=== PATIENT | female | born 1940 | race Caucasian/White ===

== ENCOUNTER 2018-08-12 09:21 | Inpatient (IN) | payer OTHER, MEDICARE ==
[2018-08-12] MEDS ORDERED: IPRATROPIUM/ALBUTEROL 3 ML DEYVIAL ONE (09:37)
[2018-08-12] MEDS ORDERED: IPRATROPIUM/ALBUTEROL 3 ML DEYVIAL IH ONE ×2 (09:48→09:49)
[2018-08-12] MEDS ORDERED: NS 500 ML IV ONE (09:49)
[2018-08-12] MEDS ORDERED: methylPREDNISolone SOD SUCC 125 MG/2 ML VIAL IVP ONE (09:49)
--- NOTE | 2018-08-12 10:00 | EDPHY ---
H & P Time Seen by Provider: 08/12/18 09:28 HPI/ROS: HPI Cough, shortness of breath. 77-year-old female by private vehicle. This patient has a history of reactive airway disease and COPD. She reports that she is visiting from [place]. She came here last Sunday by plane. She reports that a couple of days after her flight she developed a worsening cough with shortness of breath. She reports that she use prednisone and Advair as well as albuterol yesterday with some relief. She reports that her shortness of breath and cough have been worse today. She describes the cough is productive of a greenish sputum. She did not take any Advair or prednisone today. She has used albuterol multiple times with little relief. She feels she has had a fever yesterday but not today. ROS: Constitutional: As above. No weakness. Eyes: No discharge. No changes in vision. ENT: No sore throat. No nasal congestion or rhinorrhea. Respiratory: As above. Cardiac: No chest pain, no palpitations. Gastrointestinal: No abdominal pain, no vomiting, no diarrhea. Genitourinary: No hematuria. No dysuria or increased frequency with urination. Musculoskeletal: No back pain. No neck pain. No myalgias or arthralgias. Skin: No rashes. Neurological: No headache. No focal weakness or altered sensation. Past medical history: Hypertension, asthma, COPD, hyperthyroid, lung cancer. Social history: She is here by herself. She has a son who lives in [place] and she is visiting currently. She is from [place]. She is a former smoker. No alcohol. Physical Exam: General Appearance: Alert, , mildly anxious, she is not in distress. This patient is responding to questions appropriately and in full sentences. This patient appears well-hydrated and well-nourished. Eyes: Pupils equal and round no pallor or injection. No lid edema, erythema or injection. ENT, Mouth: Mucous membranes are moist. The pharyngeal tissues are unremarkable. No edema or swelling. No asymmetry suggestive of abscess. No erythema or exudates. Respiratory: There are no retractions, diminished lung sounds bilaterally with scant wheezing in the upper de oliveira on exhalation. Tachypnea at 22. Cardiovascular: Regular rate and rhythm. Tachycardia. No murmur appreciated. Gastrointestinal: Abdomen is soft and nontender, no masses, bowel sounds normal. No focal tenderness at McBurney's point. No Mcgrath sign. Neurological: Motor sensory function is grossly intact. Cranial nerves are normal. Gait is normal. Skin: Warm and dry, no rashes. Musculoskeletal: Neck is supple and nontender. Extremities are symmetrical. No significant lower extremity edema. All joints range without pain or impingement. Psychiatric: No agitation. No depression. Database: EKG: EKG time is 9:41 a.m.; EKG shows a narrow complex normal sinus tachycardia with a ventricular rate of 138. QS waves noted in the precordial leads. PVC noted. The NC, QRS, QT intervals are within normal limits. There are no ST-T wave changes indicative of ischemic or injury pattern. No evidence of right heart strain. Interpreted by me. Imaging: Chest x-ray PA and lateral; the cardiac mediastinal silhouette is unremarkable. There is a large infiltrative process, likely lower right upper lobe. Annalise hilar infiltrative process is also noted on the left side with a small left- sided pleural effusion. No pneumothorax. No other acute cardiopulmonary disease process noted. Interpreted by me. Procedures: Emergency department course: Triage vital signs reviewed. She is tachycardic. Blood pressure 94/74 from triage. On my evaluation she is 106/67. IV was placed. She was placed on a banner painter. She was started on IV normal saline with 500 cc to be given over the next 30 min. EKG obtained and reviewed by myself. Blood cultures and respiratory pathogen panel to be obtained. Sepsis protocol initiated. Her presentation is consistent with a COPD exacerbation with bronchitis and possible pneumonia. She will be given albuterol/Atrovent nebulizers as well as 125 mg of IV Solu-Medrol. 10:10 a.m., initial point of care venous lactate is 3.3. Severe sepsis protocol initiated with 30 mL/kg lactated Ringer's bolus to be started shortly. The patient will also be started on broad-spectrum antibiotics which will include IV ceftriaxone and IV azithromycin. I explained to the patient that she will need to be admitted to the hospital. All of her questions were answered. 10:30 a.m., the patient was re-evaluated, resting comfortably at this time. Blood pressure currently 108/68. Results of her chest x-ray and diagnosis of pneumonia discussed. She is receiving IV ceftriaxone now and has been started on her IV fluid bolus. Plan for admission discussed with her. 10:35 a.m., spoke with on-call hospitalist. We will admit this patient to the step-down unit under the care of Dr. Alia Shannon. The patient was just started on her lactated Ringer's bolus and will be transferred shortly. Repeat venous lactate has been ordered at [facility]. This will be obtained when she is through with her IV fluid bolus. It will then be determined if she meets criteria for septic shock and will require a central line and pressors. I feel the patient is stable for transfer at this time and will be much better served once at the main hospital. At this time she is responding well to IV fluids and the therapies we have initiated here. I filled out the appropriate transfer paperwork. I have also discussed the elevated D-dimer with the hospitalist service. At this time we will hold on obtaining a CT angiogram. Pulmonary embolism is unlikely given her chest x-ray findings and obvious pneumonia. CT angiogram will be considered after admission and IV fluid hydration. Her creatinine here is elevated at 1.2. 11:20 a.m., blood pressure is 112/59 with a mean arterial pressure of 84. stock plan administrator shows a narrow complex sinus tachycardia rate of 120. Patient is responding well to IV fluids. IV ceftriaxone and IV azithromycin have been given. EMS at bedside. The patient was transferred to [facility] in stable and improved condition. Differential Diagnosis: The differential diagnosis on this patient includes but is not limited to COPD exacerbation, pneumonia, sepsis, acute bronchitis. This represents a partial list of diagnoses considered. These considerations are based on history, physical exam, past history, reassessment and diagnostic testing. Smoking Status: Former smoker Constitutional: Initial Vital Signs O2 Sat (%) 97 08/12/18 09:30 O2 Delivery Mode Nasal Cannula O2 (L/minute) 3 Allergies/Adverse Reactions: No Known Allergies Allergy (Verified 08/12/18 09:29) Home Medications: Medication Instructions Recorded Advair 250/50 (RX) 12/27/14 Albuterol 12/27/14 Lisinopril 12/27/14 Levothyroxine [Synthroid 50 mcg 08/12/18 (*)] predniSONE [Prednisone] PRN 08/12/18 Medical Decision Making - Diagnostics Imaging Results: Imaging Impressions Chest X-Ray 08/12/18 09:50 Impression: 1. Bilateral consolidation/pneumonia with mild left effusion. - Data Points Laboratory Results: Laboratory Results 08/12/18 09:45 08/12/18 08/12/18 08/12/18 10:05 09:56 09:54 WBC RBC Hgb Hct MCV MCH MCHC RDW Plt Count MPV Neut % (Auto) Lymph % (Auto) [place] % (Auto) Eos % (Auto) Baso % (Auto) Nucleat RBC Rel Count Absolute Neuts (auto) Absolute Lymphs (auto) Absolute Monos (auto) Absolute Eos (auto) Absolute Basos (auto) Absolute Nucleated RBC Immature Gran % Immature Gran # Platelet Estimate PT INR APTT VBG Lactic Acid POC Sodium 133 mEq/L L mEq/L (135-145) POC Potassium 3.3 mEq/L mEq/L (3.3-5.0) POC Chloride 91.0 mEq/L L mEq/L (97-110) POC Total CO2 24 mEq/L mEq/L (22-31) POC BUN 25 mg/dL H mg/dL (7-23) POC Creatinine 1.2 mg/dL H mg/dL (0.6-1.0) POC Glucose 97 mg/dL mg/dL (70-100) POC Lactic Acid Carlton 3.3 mmol/L H mmol/L (0.7-2.1) POC Calcium 9.5 mg/dL mg/dL (8.5-10.4) Total Bilirubin POC Troponin I 0.02 ng/mL ng/mL (0.00-0.08) NT-Pro-B Natriuret Pep 08/12/18 08/12/18 08/12/18 09:45 09:45 09:45 WBC 11.00 10^3/uL H 10^3/uL (3.80-9.50) RBC 4.25 10^6/uL 10^6/uL (4.18-5.33) Hgb 13.3 g/dL g/dL (12.6-16.3) Hct 38.6 % % (38.0-47.0) MCV 90.8 fL fL (81.5-99.8) MCH 31.3 pg pg (27.9-34.1) MCHC 34.5 g/dL g/dL (32.4-36.7) RDW 13.5 % % (11.5-15.2) Plt Count 319 10^3/uL 10^3/uL (150-400) MPV 9.8 fL fL (8.7-11.7) Neut % (Auto) Pending Lymph % (Auto) Pending [place] % (Auto) Pending Eos % (Auto) Pending Baso % (Auto) Pending Nucleat RBC Rel Count Pending Absolute Neuts (auto) Pending Absolute Lymphs (auto) Pending Absolute Monos (auto) Pending Absolute Eos (auto) Pending Absolute Basos (auto) Pending Absolute Nucleated RBC Pending Immature Gran % Pending Immature Gran # Pending Platelet Estimate Pending PT INR APTT VBG Lactic Acid REJ POC Sodium POC Potassium POC Chloride POC Total CO2 POC BUN POC Creatinine POC Glucose POC Lactic Acid Carlton POC Calcium Total Bilirubin 0.8 mg/dL mg/dL (0.1-1.4) POC Troponin I NT-Pro-B Natriuret Pep 730 pg/mL H pg/mL (0-450) 08/12/18 09:45 WBC RBC Hgb Hct MCV MCH MCHC RDW Plt Count MPV Neut % (Auto) Lymph % (Auto) [place] % (Auto) Eos % (Auto) Baso % (Auto) Nucleat RBC Rel Count Absolute Neuts (auto) Absolute Lymphs (auto) Absolute Monos (auto) Absolute Eos (auto) Absolute Basos (auto) Absolute Nucleated RBC Immature Gran % Immature Gran # Platelet Estimate PT 18.1 SEC H SEC (12.0-15.0) INR 1.48 H (0.83-1.16) APTT 34.4 SEC SEC (23.0-38.0) VBG Lactic Acid POC Sodium POC Potassium POC Chloride POC Total CO2 POC BUN POC Creatinine POC Glucose POC Lactic Acid Carlton POC Calcium Total Bilirubin POC Troponin I NT-Pro-B Natriuret Pep Medications Given: Discontinued Medications Albuterol/Ipratropium (Duoneb) 3 ml IH EDNOW ONE Stop: 08/12/18 09:49 Last Admin: 08/12/18 09:55 Dose: 3 ml Albuterol/Ipratropium (Duoneb) 6 ml IH EDNOW ONE Stop: 08/12/18 09:50 Last Admin: 08/12/18 12:27 Dose: Not Given Sodium Chloride (Ns) 500 mls @ 1,000 mls/hr IV EDNOW ONE PRN Reason: Protocol Stop: 08/12/18 10:18 Last Admin: 08/12/18 10:02 Dose: 500 mls Azithromycin 500 mg/ Sodium (Chloride) 255 mls @ 255 mls/hr IV EDNOW ONE PRN Reason: Protocol Stop: 08/12/18 11:07 Last Admin: 08/12/18 10:52 Dose: 255 mls Ceftriaxone Sodium/Dextrose (Rocephin 1 Gm (Premix)) 50 mls @ 100 mls/hr IV EDNOW ONE PRN Reason: Protocol Stop: 08/12/18 10:35 Last Admin: 08/12/18 10:22 Dose: 50 mls Lactated Ringer's (Lr) 1,900 mls @ 3,800 mls/hr 30 ml/kg infuse over 30 min ( 1900 ml) IV EDNOW ONE PRN Reason: Protocol Stop: 08/12/18 10:35 Last Admin: 08/12/18 10:32 Dose: 1,900 mls Ceftriaxone Sodium 2 gm/ (Sodium Chloride) 100 mls @ 200 mls/hr IV EDNOW ONE PRN Reason: Protocol Stop: 08/12/18 10:53 Last Admin: 08/12/18 12:27 Dose: Not Given Ceftriaxone Sodium/Dextrose (Rocephin 1 Gm (Premix)) 50 mls @ 100 mls/hr IV EDNOW ONE PRN Reason: Protocol Stop: 08/12/18 11:03 Last Admin: 08/12/18 10:42 Dose: 50 mls Methylprednisolone Sodium Succinate (Solu-Medrol) 125 mg IVP EDNOW ONE Stop: 08/12/18 09:50 Last Admin: 08/12/18 10:03 Dose: 125 mg Point of Care Test Results: CBC CBC Collection Date 08/12/18 CBC Collection Time 09:45 WBC 10.8 RBC 4.39 HGB 14.1 HCT 39.8 PLT 320 Neut # 10.3 Neut 95.5 LYMPH # 0.4 LYMPH 3.6 Other WBC # 0.1 Other WBC 0.9 MCV 90.7 Chemistry 08/12/18 08/12/18 09:56 09:54 POC Sodium 133 mEq/L L mEq/L (135-145) POC Potassium 3.3 mEq/L mEq/L (3.3-5.0) POC Chloride 91.0 mEq/L L mEq/L (97-110) POC Total CO2 24 mEq/L mEq/L (22-31) POC BUN 25 mg/dL H mg/dL (7-23) POC Creatinine 1.2 mg/dL H mg/dL (0.6-1.0) POC Glucose 97 mg/dL mg/dL (70-100) POC Calcium 9.5 mg/dL mg/dL (8.5-10.4) POC Troponin I 0.02 ng/mL ng/mL (0.00-0.08) Blood Gas/Lactic Acid-Venous 08/12/18 10:05 POC Lactic Acid Carlton 3.3 mmol/L H mmol/L (0.7-2.1) D-Dimer D-Dimer Collection Date 08/12/18 D-Dimer Collection Time 09:45 D-Dimer (ng/ml) 2610 Departure - Departure Disposition: [facility] Inpatient Acute Clinical Impression: COPD exacerbation, Pneumonia, Sepsis, Renal insufficiency
[2018-08-12] MEDS ORDERED: LACTATED RINGERS IV ONE (10:06)
[2018-08-12] MEDS ORDERED: AZITHROMYCIN IV 500 MG in NS 250 ML IV ONE (10:08)
[2018-08-12] MEDS ORDERED: IOPAMIDOL (ISOVUE 370) 100 ML BTL IV ONE (10:22)
[2018-08-12] MEDS ORDERED: ACETAMINOPHEN 325 MG TAB PO PRN (10:44)
[2018-08-12] MEDS ORDERED: ONDANSETRON 4 MG/2 ML VIAL IVP PRN (10:44)
[2018-08-12] MEDS ORDERED: ONDANSETRON DISINTEGRATING 4 MG TAB PO PRN (10:44)
[2018-08-12 11:20] LABS: INR 1.48 (0.83-1.16); PROTIME(PATIENT) 18.1 SEC (12.0-15.0)
[2018-08-12 12:52] LABS: PLATELET COUNT 319 10^3/uL (150-400)
--- NOTE | 2018-08-12 13:32 | GCON ---
CRITICAL CARE NURSE PRACTITIONER CONSULTATION REFERRING PHYSICIAN: Alia Shannon MD REASON FOR ADMISSION: Pneumonia. HISTORY OF PRESENT ILLNESS: I was called by Dr. Alia Shannon to see the patient regarding pneumonia . The patient is a 77-year-old white female with a past medical history of chronic obstructive pulmo nary disease, hyperthyroidism, asthma, hypertension, and lung cancer. Her lung cancer was diagnosed 2 years ago and has been under treatment with radiation therapy and chemotherapy and has been followe d by an oncologist in [place]. In discussion with the patient, she states that over the last several days, she has noticed increasing shortness of breath, as well as a cough. Cough was initially produ ctive of yellowish sputum and is now green and is also somewhat blood-tinged. She denies any chest p ain, pleuritic-type chest pain or angina equivalent. She has worsening breathlessness, especially wi th any form of exertion. She denies any fever. She was seen in the emergency room and was subsequen tly admitted to the hospital. Currently, she feels markedly improved. PAST MEDICAL HISTORY: Again significant for hypertension, chronic obstructive pulmonary disease, hyp erthyroidism, and lung cancer. ALLERGIES: No known allergies to medications. SOCIAL HISTORY: Previous heavy smoker, none for approximately 6 years. She drinks a significant lena unt of alcohol. Work history: She is retired. She is , with children. She has a son here in [place], and she is currently visiting from [place]. FAMILY HISTORY: Noncontributory. REVIEW OF SYSTEMS: Ten-point review of systems is performed and negative, except for what is listed in HPI. PHYSICAL EXAM: VITAL SIGNS: Blood pressure is 122/64. Pulse is 122, respirations 26, temperature 3 6.6, oxygen saturation 95% on 2 L. GENERAL: She is a well-developed, well-nourished, elderly white female who is resting comfortably on supplemental oxygen. HEENT: Eyes, MIKAYLA, EOMI. Throat shows no erythema or tonsillar hypertrophy. NECK: Supple. No cervical adenopathy. HEART: Regular rate and rhythm, without murmurs, rubs, or gallops. LUNGS: Increased rhonchi on the right. Left lung shows a prolongation expiratory phase but no wheeze. ABDOMEN: Soft and nontender. Bowel sounds are pres ent in all 4 quadrants. EXTREMITIES: No clubbing, cyanosis, or edema. LABORATORIES: White count is 11, hemoglobin 13, hematocrit 38, platelet count 319. INR is 1.48. So dium is 133, potassium 3.3. Chloride is 91. CO2 is 24. BUN 25, creatinine 1.2. Glucose is 97. Ches t x-ray reveals mild hyperinflated lungs. There is a dense right upper lobe consolidation. There is increased density in the left hilar region, with some probable postradiation changes. IMPRESSION: 1. Community-acquired pneumonia. 2. Sepsis. 3. Tachycardia. 4. Chronic obstructive pulmonary disease. 5. Left-sided lung cancer. 6. Hypertension. 7. Hyperthyroidism. RECOMMENDATIONS: 1. Agree with admission to step-down unit. 2. DVT and PE prophylaxis. 3. Stress ulcer prophylaxis. 4. Agree with current antibiotic coverage, including azithromycin and ceftriaxone. 5. Frequent nebulization with both albuterol and Atrovent. 6. Agree with IV steroids. 7. PT and OT. 8. Out of bed to chair. 9. Await sputum and blood cultures. /[id number]/MODL
[2018-08-12] MEDS: IPRATROPIUM/ALBUTEROL 3 ML DEYVIAL IH SCH ×4 (14:03→20:14)
[2018-08-12] MEDS ORDERED: NICOTINE POLACRILEX 2 MG GUM B PRN (14:32)
--- NOTE | 2018-08-12 14:37 | PDGENHP ---
History and Physical - Chief Complaint cough, SOB - History of Present Illness 77 yo female with h/o tobacco abuse and lung cancer s/p laser therapy and chemo presented to [facility] ED with cough and SOB x3 days. She reports increased cough and sputum production, green. +fever to 100. Denies CP. She reports a h/o asthma or COPD, uses albuterol nebs at home. She has a Rx for oral Prednisone to use prn and she took 40 mg on Sunday. She thought her symptoms cleared up, but then they worsened and she presented to the ED. In the ED, she met criteria for sepsis with tachycardia, elevated lactate and pneumonia evident on CXR. Blood cultures were drawn. She was given IV solumedrol, Ceftriaxone, Azithromycin and is admitted for further management. History Information - Allergies/Home Medication List Allergies/Adverse Reactions: No Known Allergies Allergy (Verified 08/12/18 09:29) Home Medications: Albuterol [Proventil Inhaler HFA (*)] 1 - 2 puffs IH Q4H PRN 12/27/14 [Last Taken 08/12/18] Fluticasone/Salmeter 250/50Mcg [Advair 250/50 (*)] 1 puffs IH DAILY 12/27/14 [ Last Taken 3 Days Ago ~08/09/18] Lisinopril [Zestril 20 mg (*)] 20 mg PO DAILY 12/27/14 [Last Taken 3 Days Ago ~ 08/09/18] Albuterol [Proventil Neb] 3 ml IH QID PRN 08/12/18 [Last Taken Unknown] Ascorbic Acid [Vitamin C 500 mg (*)] 500 mg PO DAILY 08/12/18 [Last Taken Unknown] Cyanocobalamin [Vitamin B12 (*)] 1,000 mcg PO DAILY 08/12/18 [Last Taken Unknown ] Herbals/Supplements -Info Only 1 ea PO DAILY 08/12/18 [Last Taken Unknown] Levothyroxine [Synthroid 50 mcg (*)] 50 mcg PO DAILY06 08/12/18 [Last Taken ] Nicotine Polacrilex [Nicorette gum (*)] 2 mg BC PRN PRN 08/12/18 [Last Taken ] Vitamin B Complex [Vitamin B Complex (OTC)] 1 each PO DAILY 08/12/18 [Last Taken Unknown] predniSONE 20 mg PO DAILY PRN 08/12/18 [Last Taken 08/11/18] I have personally reviewed and updated: family history, medical history, social history, surgical history - Past Medical History cancer, COPD Additional medical history: hypothyroidism. lung cancer - Surgical History Additional surgical history: laser surgery on lungs for lung cancer - Family History Positive for: cancer Additional family history: dad from pancreatic cancer. sister with breast cancer. brother prostate cancer - Social History Smoking Status: Former smoker Alcohol Use: Occasionally Drug Use: None Additional social history: Lives alone, independent Review of Systems Review of Systems: ROS: 10pt was reviewed & negative except for what was stated in HPI & below Physical Exam Physical Exam: Temp Pulse Resp BP Pulse Ox 36.6 C 118 H 19 112/67 96 08/12/18 13:05 08/12/18 13:25 08/12/18 13:25 08/12/18 13:25 08/12/18 13:25 O2 (L/minute) 2 Constitutional: no apparent distress Eyes: PERRL Ears, Nose, Mouth, Throat: moist mucous membranes Cardiovascular: regular rate and rhythym Respiratory: no respiratory distress, reduced air movement, expiratory wheeze, inspiratory crackles Gastrointestinal: normoactive bowel sounds, soft, non-tender abdomen Skin: warm Musculoskeletal: full muscle strength Neurologic: AAOx3 Psychiatric: interacting appropriately Lab Data & Imaging Review 08/12/18 09:45 WBC 11.00 10^3/uL (3.80-9.50) H 08/12/18 09:45 RBC 4.25 10^6/uL (4.18-5.33) 08/12/18 09:45 Hgb 13.3 g/dL (12.6-16.3) 08/12/18 09:45 Hct 38.6 % (38.0-47.0) 08/12/18 09:45 MCV 90.8 fL (81.5-99.8) 08/12/18 09:45 MCH 31.3 pg (27.9-34.1) 08/12/18 09:45 MCHC 34.5 g/dL (32.4-36.7) 08/12/18 09:45 RDW 13.5 % (11.5-15.2) 08/12/18 09:45 Plt Count 319 10^3/uL (150-400) 08/12/18 09:45 MPV 9.8 fL (8.7-11.7) 08/12/18 09:45 Neut % (Auto) 94.6 % (39.3-74.2) H 08/12/18 09:45 Lymph % (Auto) 3.5 % (15.0-45.0) L 08/12/18 09:45 Bates % (Auto) 1.7 % (4.5-13.0) L 08/12/18 09:45 Eos % (Auto) 0.0 % (0.6-7.6) L 08/12/18 09:45 Baso % (Auto) 0.1 % (0.3-1.7) L 08/12/18 09:45 Nucleat RBC Rel Count 0.0 % (0.0-0.2) 08/12/18 09:45 Absolute Neuts (auto) 10.40 10^3/uL (1.70-6.50) H 08/12/18 09:45 Absolute Lymphs (auto) 0.39 10^3/uL (1.00-3.00) L 08/12/18 09:45 Absolute Monos (auto) 0.19 10^3/uL (0.30-0.80) L 08/12/18 09:45 Absolute Eos (auto) 0.00 10^3/uL (0.03-0.40) L 08/12/18 09:45 Absolute Basos (auto) 0.01 10^3/uL (0.02-0.10) L 08/12/18 09:45 Absolute Nucleated RBC 0.00 10^3/uL (0-0.01) 08/12/18 09:45 Immature Gran % 0.1 % (0.0-1.1) 08/12/18 09:45 Seg Neutrophils % 76.8 % 08/12/18 09:45 Band Neutrophils % 3.0 % 08/12/18 09:45 Lymphocytes % 8.1 % 08/12/18 09:45 Monocytes % 8.1 % 08/12/18 09:45 Eosinophils % 0.0 % 08/12/18 09:45 Basophils % 0.0 % 08/12/18 09:45 Metamyelocytes % 2.0 % 08/12/18 09:45 Myelocytes % 2.0 % 08/12/18 09:45 Promyelocytes % 0.0 % 08/12/18 09:45 Blast Cells % 0.0 % 08/12/18 09:45 Immature Gran # 0.01 10^3/uL (0.00-0.10) 08/12/18 09:45 Absolute Seg Neuts 8.45 10^3/uL (1.70-6.50) H 08/12/18 09:45 Absolute Band Neuts 0.33 10^3/uL (0.00-0.70) 08/12/18 09:45 Absolute Lymphocytes 0.89 10^3/uL (1.00-3.00) L 08/12/18 09:45 Absolute Monocytes 0.89 10^3/uL (0.30-0.80) H 08/12/18 09:45 Absolute Eosinophils 0.00 10^3/uL (0.03-0.40) L 08/12/18 09:45 Absolute Basophils 0.00 10^3/uL (0.02-0.10) L 08/12/18 09:45 Absolute Metamyelocyte 0.22 10^3/mL (0.00-0.00) H 08/12/18 09:45 Absolute Myelocytes 0.22 10^3/mL (0.00-0.00) H 08/12/18 09:45 Absolute Promyelocytes 0.00 10^3/uL (0.00-0.00) 08/12/18 09:45 Absolute Plasma Cells 0.00 10^3/uL (0.00-0.00) 08/12/18 09:45 Nucleated RBCs 1.0 /100 WBC (0-0) H 08/12/18 09:45 Absolute Blast Cells 0.00 10^3/uL (0.00-0.00) 08/12/18 09:45 Plasma Cells % 0.0 % 08/12/18 09:45 Platelet Estimate ADEQUATE (ADEQ) 08/12/18 09:45 Oval Macrocytes 1+ H 08/12/18 09:45 PT 18.1 SEC (12.0-15.0) H 08/12/18 09:45 INR 1.48 (0.83-1.16) H 08/12/18 09:45 APTT 34.4 SEC (23.0-38.0) 08/12/18 09:45 VBG Lactic Acid REJ 08/12/18 09:45 POC Sodium 133 mEq/L (135-145) L 08/12/18 09:54 POC Potassium 3.3 mEq/L (3.3-5.0) 08/12/18 09:54 POC Chloride 91.0 mEq/L (97-110) L 08/12/18 09:54 POC Total CO2 24 mEq/L (22-31) 08/12/18 09:54 POC BUN 25 mg/dL (7-23) H 08/12/18 09:54 POC Creatinine 1.2 mg/dL (0.6-1.0) H 08/12/18 09:54 POC Glucose 97 mg/dL (70-100) 08/12/18 09:54 POC Lactic Acid Carlton 3.3 mmol/L (0.7-2.1) H 08/12/18 10:05 POC Calcium 9.5 mg/dL (8.5-10.4) 08/12/18 09:54 Total Bilirubin 0.8 mg/dL (0.1-1.4) 08/12/18 09:45 POC Troponin I 0.02 ng/mL (0.00-0.08) 08/12/18 09:56 NT-Pro-B Natriuret Pep 730 pg/mL (0-450) H 08/12/18 09:45 Visualized and Interpreted Chest x-ray results: Yes Chest X-Ray results: infiltrate Visualized and Interpreted EKG results: Yes EKG Interpretation: Positive for: normal sinsus rhythm Assessment & Plan Assessment: AHRF 2/2 PNA and acute exacerbation of COPD - 2 LPM. Not on home O2 -IV steroids, nebs, atbx as below -send RVP -wean O2 as able Sepsis 2/2 PNA - (tachypnea, tachycardia, elevated lactate). BCx's and sputum Cx pending -Ceftriaxone, Azithromycin COPD exac - as above H/O lung cancer - reportedly in remission -needs f/u CXR in 4-6 weeks once PNA clears Hypothyroidism - cont levothyroxine Full code DVT PPLX - lovenox Dispo - inpt, anticipate >48 hrs hospitalization for ongoing management of sepsis, PNA and COPD exacerbation
[2018-08-12] MEDS ORDERED: BENZONATATE 100 MG CAP PO PRN (14:44)
[2018-08-12] MEDS: guaiFENesin 600 MG TAB.ER PO SCH ×2 (14:55→20:41)
--- NOTE | 2018-08-12 15:15 | PDMN ---
Medical Necessity Medical necessity: [facility] M160 Sepsis: 77 yo w/ sepsis evidenced by tachycardia 140s, elevated WBC and lactate and pneumonia on CXR. Pt also w/ acute COPD exacerbation and acute renal insufficiency. Pt is tachypneac in 20s, O2 sats 80s on RA-O2 started, BC pending. Nebs, IV steroids, IV antibx started. Meets IP criteria for sepsis w/ hemodynamic instability, hypoxemia, and tachypnea. Hx sig for lung ca s/p laser tx and chemo.
[2018-08-12] MEDS ORDERED: NS W/ 20 KCl/L 1,000 ML IV SCH (15:45)
[2018-08-12] MEDS ORDERED: NS 1,000 ML IV SCH (16:00)
[2018-08-12] MEDS: FAMOTIDINE 20 MG TAB PO SCH (16:17)
[2018-08-12] MEDS: methylPREDNISolone SOD SUCC 125 MG/2 ML VIAL IVP SCH (17:59)
[2018-08-12] MEDS: FLUTICASONE/SALMETER 250/50MCG DISKUS IH SCH (20:15)
[2018-08-13] MEDS: methylPREDNISolone SOD SUCC 125 MG/2 ML VIAL IVP SCH ×2 (00:13→05:42)
[2018-08-13] MEDS: ALBUTEROL 3 ML DEYVIAL IH PRN (02:11)
[2018-08-13] MEDS: IPRATROPIUM/ALBUTEROL 3 ML DEYVIAL IH SCH (05:28)
[2018-08-13] MEDS: LEVOTHYROXINE 50 MCG TAB PO SCH (05:43)
[2018-08-13 06:15] LABS: PLATELET COUNT 248 10^3/uL (150-400)
--- NOTE | 2018-08-13 08:39 | HOSPPROG ---
Hospitalist Progress Note Assessment/Plan: AHRF 2/2 PNA and acute exacerbation of COPD - 3-4 LPM. Not on home O2. RVP neg. -cont steroids, change to oral prednisone -cont nebs -wean O2 as able -atbx as below Sepsis 2/2 PNA - (tachypnea, tachycardia, elevated lactate). BCx's and sputum Cx pending -Cont ceftriaxone, azithro (day 2) Pneumococcal bacteremia 2/2 above - no murmur -await sensitivities, if Levaquin sensitive, could transition to orals to complete 14 d therapy (d/w ID) -repeat BCx's tomorrow Sinus tachycardia - likely 2/2 bacteremia, possibly hastened by albuterol and steroids -change to xopenex COPD exac - as above H/O lung cancer - reportedly in remission -needs f/u CXR in 4-6 weeks once PNA clears Hypothyroidism - cont levothyroxine Full code DVT PPLX - lovenox Dispo - cont inpt, SDU for another day until tachycardia improved. Discussed with Dr. Domingo Subjective: Pt feels a little better. She is quite weak. No fevers overnight. Still coughing. No CP or SOB at rest. Objective: Vital Signs Temp Pulse Resp BP Pulse Ox 36.8 C 123 H 25 H 111/65 95 08/13/18 08:00 08/13/18 08:00 08/13/18 08:00 08/13/18 08:00 08/13/18 08:00 Laboratory Results 08/13/18 05:30 08/13/18 05:30 08/12/18 08/13/18 08/14/18 05:59 05:59 05:59 Intake Total 4035 Output Total 500 Balance 3535 PT 18.1 SEC (12.0-15.0) H 08/12/18 09:45 INR 1.48 (0.83-1.16) H 08/12/18 09:45 - Physical Exam Constitutional: no apparent distress Eyes: PERRL Ears, Nose, Mouth, Throat: moist mucous membranes Cardiovascular: tachycardia Respiratory: no respiratory distress, reduced air movement, expiratory wheeze, inspiratory crackles Gastrointestinal: normoactive bowel sounds, soft, non-tender abdomen Skin: warm Musculoskeletal: full muscle strength Neurologic: AAOx3 Psychiatric: interacting appropriately ICD10 Worksheet Patient Problems: Problems Problem Status Onset COPD exacerbation Acute Pneumonia Acute Renal insufficiency Acute Sepsis Acute
--- NOTE | 2018-08-13 08:50 | PDINTPN ---
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 Assessment/Plan: Assessment/plan: * Pneumococcal pneumonia-dense right upper lobe and hint of left lower lobe -continue current antibiotics -aggressive pulmonary toilet * Chronic obstructive pulmonary disease -continue nebulized treatments and IV steroids * Acute respiratory failure-secondary to above -continue supplemental oxygen, wean as tolerated * Pneumococcal bacteremia * History of lung cancer-status post radiation and chemotherapy * Hypertension-controlled * Hyperthyroidism * VT prophylaxis * Stress ulcer prophylaxis-not necessary * Out of bed to chair Subjective: Resting comfortably in bed. Breathless with any form of exertion. Objective: Vital Signs Temp Pulse Resp BP Pulse Ox 36.8 C 123 H 25 H 111/65 95 08/13/18 08:00 08/13/18 08:00 08/13/18 08:00 08/13/18 08:00 08/13/18 08:00 Laboratory Results 08/13/18 05:30 08/13/18 05:30 08/12/18 08/13/18 08/14/18 05:59 05:59 05:59 Intake Total 4035 Output Total 500 Balance 3535 PT 18.1 SEC (12.0-15.0) H 08/12/18 09:45 INR 1.48 (0.83-1.16) H 08/12/18 09:45 Laboratory Results 08/13/18 05:30 08/13/18 05:30 08/12/18 09:49 Respiratory Panel (PCR) - Final Nasal, Sinus - Swab No Organism Detected By Pcr 08/12/18 09:45 Blood Culture - Preliminary Blood Gram Positive Cocci Chains - Time Spent With Patient Time Spent With Patient: 35 min of time spent with patient, over 1/2 involved with coordination of care or counseling. Case discussed with Nursing and hospitalist Physical Exam - Physical Exam General Appearance: WD/WN, alert, no apparent distress EENT: PERRL/EOMI Neck: non-tender, full range of motion, supple, normal inspection Respiratory: crackles (Bibasilar), prolonged expiration, No wheezing Cardiac/Chest: normal peripheral pulses, regular rate, rhythm, tachycardia Peripheral Pulses: 2+: carotid (R), carotid (L), femoral (R), femoral (L), dorsalis-pedis (R), dorsalis-pedis (L) Abdomen: normal bowel sounds, non-tender, soft Pelvic Exam: deferred Rectal: deferred Skin: normal color, warm/dry Extremities: normal range of motion Neuro/Psych: no motor/sensory deficits, alert, normal mood/affect, oriented x 3 ICD10 Worksheet Patient Problems: Problems Problem Status Onset COPD exacerbation Acute Pneumonia Acute Renal insufficiency Acute Sepsis Acute
[2018-08-13] MEDS: guaiFENesin 600 MG TAB.ER PO SCH ×2 (08:53→20:00)
[2018-08-13] MEDS: FAMOTIDINE 20 MG TAB PO SCH (08:53)
[2018-08-13] MEDS: ENOXAPARIN 40 MG/0.4 ML SYR SC SCH (08:54)
[2018-08-13] MEDS ORDERED: FLUTICASONE/SALMETER 250/50MCG DISKUS IH SCH (09:00)
[2018-08-13] MEDS ORDERED: predniSONE 20 MG TAB PO SCH ×2 (09:00→18:00)
--- NOTE | 2018-08-13 09:25 | ASMTCMCOM ---
CM Note CM Note Notes: 89yo female admitted for weakness, dizziness, Afib. She has a Hx of CAD, MD s/p stents, DM-2, HTN, OA, RAD, CHF, Severe aortic stenosis, HLD, CKD-stage 3, Blindness, [place]. Patient uses a walker at home and lives with her who is her medical decision maker, also has family in area. Therapies to eval for discharge needs. May need rehab for weakness. CM to follow. Date Signed: 08/13/2018 09:24 AM Electronically Signed By:Sophie Sandoval LCSW
--- NOTE | 2018-08-13 10:28 | ASMTCMCOM ---
CM Note CM Note Notes: Disregard CM Note 08/13/18 09:24, written on the wrong patient. Date Signed: 08/13/2018 10:27 AM Electronically Signed By:Sophie Sandoval LCSW
[2018-08-13] MEDS: AZITHROMYCIN IV 500 MG in NS 250 ML IV SCH (10:29)
[2018-08-13] MEDS: IPRATROPIUM BROMIDE 0.5 MG/2.5 ML DEYVIAL IH PRN ×2 (10:36→15:31)
[2018-08-13] MEDS: LEVALBUTEROL 1.25 MG/3 ML DEYVIAL IH SCH ×3 (10:36→20:28)
[2018-08-13] MEDS: FLUTICASONE/SALMETER 250/50MCG DISKUS IH SCH ×2 (10:37→20:01)
--- NOTE | 2018-08-13 10:43 | ASMTCMCOM ---
CM Note CM Note Notes: 77 yo female presented with pnemonia, sepsis with tachycardia. Pt is a tabacco user with history of lung cancer treated with laser therapy and chemo, asthma, COPD, and Hypothyroidism. Pt lives in [place] and is visiting her son with plans to return there in a few weeks. Pt has no CM needs at this time and will likely D/C independent. CM will be available if needs change. Date Signed: 08/13/2018 10:42 AM Electronically Signed By:Viky Brand
--- NOTE | 2018-08-13 16:22 | CPEKG ---
Test Reason : OPEN Blood Pressure : / mmHG Vent. Rate : 138 BPM Atrial Rate : 135 BPM P-R Int : 138 ms QRS Dur : 073 ms QT Int : 269 ms P-R-T Axes : 056 068 019 degrees QTc Int : 408 ms Sinus tachycardia Ventricular premature complex Left atrial enlargement Anterior infarct, old Confirmed by Dilma Burks ([id number]) on 08/13/2018 4:22:31 PM Referred By: Confirmed By:Dilma Burks
[2018-08-13] MEDS: predniSONE 20 MG TAB PO SCH (18:03)
[2018-08-14] MEDS: LEVALBUTEROL 1.25 MG/3 ML DEYVIAL IH SCH (02:55)
[2018-08-14] MEDS: LEVOTHYROXINE 50 MCG TAB PO SCH (03:04)
[2018-08-14] MEDS: FAMOTIDINE 20 MG TAB PO SCH ×2 (08:56→19:34)
[2018-08-14] MEDS: guaiFENesin 600 MG TAB.ER PO SCH ×2 (08:56→19:34)
[2018-08-14] MEDS: ENOXAPARIN 40 MG/0.4 ML SYR SC SCH (08:58)
[2018-08-14] MEDS: AZITHROMYCIN IV 500 MG in NS 250 ML IV SCH (09:04)
--- NOTE | 2018-08-14 09:11 | PDINTPN ---
Associate Partner Progress Note Assessment/Plan: Assessment/plan: * Pneumococcal pneumonia-dense right upper lobe and hint of left lower lobe -continue current antibiotics -aggressive pulmonary toilet -check chest x-ray in the morning * Chronic obstructive pulmonary disease -continue nebulized treatments and IV steroids * Acute respiratory failure-secondary to above -continue supplemental oxygen, wean as tolerated * Pneumococcal bacteremia -repeat blood cultures pending * History of lung cancer-status post radiation and chemotherapy * Hypertension-controlled * Hyperthyroidism * VT prophylaxis * Stress ulcer prophylaxis-not necessary * Out of bed to chair * Disposition-likely stable for transfer to floor Subjective: Resting comfortably. Breathing easily. Breathless with any form of exertion. Objective: Vital Signs Temp Pulse Resp BP Pulse Ox 36.3 C 115 H 20 121/62 H 94 08/14/18 08:00 08/14/18 08:00 08/14/18 08:00 08/14/18 08:00 08/14/18 08:00 Laboratory Results 08/13/18 05:30 08/14/18 05:12 08/13/18 08/14/18 08/15/18 05:59 05:59 05:59 Intake Total 4035 1280 Output Total 500 1000 Balance 3535 280 PT 18.1 SEC (12.0-15.0) H 08/12/18 09:45 INR 1.48 (0.83-1.16) H 08/12/18 09:45 Laboratory Results 08/13/18 05:30 08/14/18 05:12 08/12/18 09:45 Blood Culture - Preliminary Blood Streptococcus Pneumoniae 08/12/18 09:45 Blood Culture - Preliminary Blood Blood Panel (PCR) - Final Streptococcus Pneumoniae Streptococcus Pneumoniae - Time Spent With Patient Time Spent With Patient: 35 min of time spent with patient, over 1/2 involved with coordination of care or counseling. Case discussed with nursing. Physical Exam - Physical Exam General Appearance: WD/WN, alert, no apparent distress EENT: PERRL/EOMI Neck: non-tender Respiratory: crackles (Few basilar), prolonged expiration, No accessory muscle use, No wheezing Cardiac/Chest: normal peripheral pulses, regular rate, rhythm, tachycardia ( With exertion) Abdomen: normal bowel sounds, non-tender, soft Pelvic Exam: deferred Rectal: deferred Skin: normal color, warm/dry Extremities: normal range of motion, non-tender, normal inspection, normal capillary refill Neuro/Psych: no motor/sensory deficits, alert, normal mood/affect, oriented x 3 ICD10 Worksheet Patient Problems: Problems Problem Status Onset COPD exacerbation Acute Pneumonia Acute Renal insufficiency Acute Sepsis Acute chronic disease mgmt/transitional care Acute
[2018-08-14] MEDS: FLUTICASONE/SALMETER 250/50MCG DISKUS IH SCH ×2 (10:19→20:42)
--- NOTE | 2018-08-14 11:01 | HOSPPROG ---
Hospitalist Progress Note Assessment/Plan: AHRF 2/2 PNA and acute exacerbation of COPD - 3-4 LPM. Not on home O2. RVP neg. -cont prednisone, nebs -wean O2 as able -atbx as below Sepsis 2/2 PNA - (tachypnea, tachycardia, elevated lactate). -Cont ceftriaxonej -d/c azithromycin s/p 1.5 g Pneumococcal bacteremia 2/2 above - no murmur -await sensitivities, if Levaquin sensitive, could transition to orals to complete 14 d therapy (discussed with ID) -repeat BCx's today Sinus tachycardia - likely 2/2 bacteremia, possibly hastened by albuterol and steroids -changed to xopenex -resume IVF's today, if not improving with fluids, consider w/u for PE COPD exac - as above Hyponatremia - Na trending down. Urine Na low, suggesting hypovolemic hyponatremia -resume NS, follow H/O lung cancer - reportedly in remission -needs f/u CXR in 4-6 weeks once PNA clears Hypothyroidism - cont levothyroxine Full code DVT PPLX - lovenox Dispo - cont inpt, transfer to med/surg. Discussed with Dr. Domingo Subjective: Pt feels a little better today. Cough improved. Denies CP, still SOB with activity. No fevers/chills. Taking po fairly well. Objective: Vital Signs Temp Pulse Resp BP Pulse Ox 36.3 C 115 H 20 121/62 H 94 08/14/18 08:00 08/14/18 08:00 08/14/18 08:00 08/14/18 08:00 08/14/18 08:00 Laboratory Results 08/13/18 05:30 08/14/18 05:12 08/13/18 08/14/18 08/15/18 05:59 05:59 05:59 Intake Total 4035 1280 300 Output Total 500 1000 400 Balance 3535 280 -100 PT 18.1 SEC (12.0-15.0) H 08/12/18 09:45 INR 1.48 (0.83-1.16) H 08/12/18 09:45 - Physical Exam Constitutional: no apparent distress Eyes: PERRL Ears, Nose, Mouth, Throat: moist mucous membranes Cardiovascular: tachycardia Respiratory: no respiratory distress, inspiratory crackles Gastrointestinal: normoactive bowel sounds, soft, non-tender abdomen Skin: warm Musculoskeletal: full muscle strength Neurologic: AAOx3 Psychiatric: interacting appropriately ICD10 Worksheet Patient Problems: Problems Problem Status Onset COPD exacerbation Acute Pneumonia Acute Renal insufficiency Acute Sepsis Acute chronic disease mgmt/transitional care Acute
[2018-08-14] MEDS: NS 1,000 ML IV SCH ×2 (11:26→19:44)
[2018-08-14] MEDS: predniSONE 20 MG TAB PO SCH (18:39)
[2018-08-14] MEDS: LEVALBUTEROL 1.25 MG/3 ML DEYVIAL IH PRN (20:45)
[2018-08-15] MEDS: LEVALBUTEROL 1.25 MG/3 ML DEYVIAL IH PRN (03:53)
[2018-08-15] MEDS: FLUTICASONE/SALMETER 250/50MCG DISKUS IH SCH (06:03)
[2018-08-15] MEDS: LEVOTHYROXINE 50 MCG TAB PO SCH (06:13)
--- NOTE | 2018-08-15 09:18 | SOAPPROG ---
SOAP Progress Note Assessment/Plan: Assessment/plan: * Pneumococcal pneumonia-dense right upper lobe and hint of left lower lobe. Chest x-ray with some improvement -continue current antibiotics -aggressive pulmonary toilet -will add Mucomyst nebs * Chronic obstructive pulmonary disease -continue nebulized treatments and IV steroids * Acute respiratory failure-secondary to above -continue supplemental oxygen, wean as tolerated * Pneumococcal bacteremia -repeat blood cultures pending * History of lung cancer-status post radiation and chemotherapy * Hypertension-controlled * Hyperthyroidism * VT prophylaxis * Stress ulcer prophylaxis-not necessary * Out of bed to chair Subjective: Sitting up in bed. Resting comfortably. Feels markedly improved. Complains of cough with difficulty getting up sputum Objective: Vital Signs Temp Pulse Resp BP Pulse Ox 37.2 C 112 H 20 155/86 H 96 08/15/18 07:29 08/15/18 07:29 08/15/18 07:29 08/15/18 07:29 08/15/18 07:29 Laboratory Results 08/13/18 05:30 08/15/18 05:28 08/14/18 08/15/18 08/16/18 05:59 05:59 05:59 Intake Total 1280 3236 Output Total 1000 1950 Balance 280 1286 PT 18.1 SEC (12.0-15.0) H 08/12/18 09:45 INR 1.48 (0.83-1.16) H 08/12/18 09:45 - Time Spent With Patient Time Spent With Patient: 35 min of time spent with patient, over 1/2 involved coordination of care or counseling. Case discussed with nursing Physical Exam - Physical Exam General Appearance: alert, no apparent distress EENT: PERRL/EOMI Neck: non-tender, full range of motion, supple, normal inspection Respiratory: crackles (Right greater than left), prolonged expiration, No accessory muscle use, No wheezing Cardiac/Chest: normal peripheral pulses, regular rate, rhythm Peripheral Pulses: 2+: carotid (R), carotid (L), femoral (R), femoral (L), dorsalis-pedis (R), dorsalis-pedis (L) Abdomen: normal bowel sounds, non-tender, soft Pelvic Exam: deferred Rectal: deferred Skin: normal color, warm/dry Extremities: normal range of motion, non-tender, normal inspection, normal capillary refill Neuro/Psych: alert ICD10 Worksheet Patient Problems: Problems Problem Status Onset COPD exacerbation Acute Pneumonia Acute Renal insufficiency Acute Sepsis Acute chronic disease mgmt/transitional care Acute
[2018-08-15] MEDS: guaiFENesin 600 MG TAB.ER PO SCH ×2 (09:29→21:03)
[2018-08-15] MEDS: ENOXAPARIN 40 MG/0.4 ML SYR SC SCH (09:29)
[2018-08-15] MEDS: FAMOTIDINE 20 MG TAB PO SCH ×2 (09:29→21:03)
[2018-08-15] MEDS: ACETYLCYSTEINE 10% IH/PO 4 ML VIAL IH SCH ×3 (10:46→22:45)
[2018-08-15] MEDS: predniSONE 20 MG TAB PO SCH (15:49)
--- NOTE | 2018-08-15 16:13 | HOSPPROG ---
Hospitalist Progress Note Assessment/Plan: 77 yo f w pneumococcal pneumonia, sepsus AHRF 2/2 PNA and acute exacerbation of COPD - 3-4 LPM. Not on home O2. RVP neg. -cont prednisone, nebs -wean O2 as able -atbx as below Sepsis 2/2 PNA - (tachypnea, tachycardia, elevated lactate). -Cont ceftriaxonej -d/c azithromycin s/p 1.5 g tachycardia: euvolemic sinus follow Pneumococcal bacteremia 2/2 above - no murmur -await sensitivities, if Levaquin sensitive, could transition to orals to complete 14 d therapy (discussed with ID) -repeat BCx's today Sinus tachycardia - likely 2/2 bacteremia, possibly hastened by albuterol and steroids -changed to xopenex -resume IVF's today, if not improving with fluids, consider w/u for PE COPD exac - as above Hyponatremia - Na trending down. Urine Na low, suggesting hypovolemic hyponatremia -resume NS, follow H/O lung cancer - reportedly in remission -needs f/u CXR in 4-6 weeks once PNA clears Hypothyroidism - cont levothyroxine Subjective: case d/w dr ruelas Objective: Vital Signs Temp Pulse Resp BP Pulse Ox 36.8 C 118 H 20 145/104 H 94 08/15/18 15:38 08/15/18 15:38 08/15/18 15:38 08/15/18 15:38 08/15/18 15:38 Laboratory Results 08/13/18 05:30 08/15/18 05:28 08/14/18 08/15/18 08/16/18 05:59 05:59 05:59 Intake Total 1280 3236 Output Total 1000 1950 700 Balance 280 1286 -700 PT 18.1 SEC (12.0-15.0) H 08/12/18 09:45 INR 1.48 (0.83-1.16) H 08/12/18 09:45 - Physical Exam Constitutional: no apparent distress, appears nourished Eyes: PERRL, anicteric sclera Ears, Nose, Mouth, Throat: moist mucous membranes, hearing normal Cardiovascular: no murmur, rub, or gallop, tachycardia Respiratory: other (crackles RUL. o/w good air movement) Gastrointestinal: normoactive bowel sounds, soft, non-tender abdomen Genitourinary: no bladder fullness, No khanna in urethra Skin: warm, normal color Musculoskeletal: full muscle strength, no muscle tenderness Neurologic: AAOx3 Psychiatric: interacting appropriately ICD10 Worksheet Patient Problems: Problems Problem Status Onset COPD exacerbation Acute Pneumonia Acute Renal insufficiency Acute Sepsis Acute chronic disease mgmt/transitional care Acute
[2018-08-15] MEDS: ALBUTEROL 3 ML DEYVIAL IH PRN (16:37)
[2018-08-16] MEDS: FLUTICASONE/SALMETER 250/50MCG DISKUS IH SCH ×2 (00:04→10:48)
[2018-08-16] MEDS: LEVOTHYROXINE 50 MCG TAB PO SCH (05:27)
[2018-08-16] MEDS: ALBUTEROL 3 ML DEYVIAL IH PRN ×2 (05:54→10:48)
[2018-08-16] MEDS: ACETYLCYSTEINE 10% IH/PO 4 ML VIAL IH SCH ×3 (05:54→17:09)
[2018-08-16] MEDS: ENOXAPARIN 40 MG/0.4 ML SYR SC SCH (09:18)
[2018-08-16] MEDS: guaiFENesin 600 MG TAB.ER PO SCH ×2 (09:19→20:01)
[2018-08-16] MEDS: FAMOTIDINE 20 MG TAB PO SCH ×2 (09:20→20:01)
[2018-08-16] MEDS: predniSONE 20 MG TAB PO SCH (09:20)
--- NOTE | 2018-08-16 11:30 | HOSPPROG ---
Hospitalist Progress Note Assessment/Plan: 77 yo f w pneumococcal pneumonia, sepsis ?PE: CT PE today given persistent tachycardia and dyspnea AHRF 2/2 PNA and acute exacerbation of COPD - 3-4 LPM. Not on home O2. RVP neg. -cont prednisone, nebs -wean O2 as able -atbx as below Sepsis 2/2 PNA - (tachypnea, tachycardia, elevated lactate). -Cont ceftriaxonej -d/c azithromycin s/p 1.5 g tachycardia: euvolemic sinus follow Pneumococcal bacteremia 2/2 above - no murmur -await sensitivities, if Levaquin sensitive, could transition to orals to complete 14 d therapy (discussed with ID) -repeat BCx's 08/14- neg thus far Sinus tachycardia - likely 2/2 bacteremia, possibly hastened by albuterol and steroids -changed to xopenex -resume IVF's today, if not improving with fluids, consider w/u for PE COPD exac - as above Hyponatremia - Na trending down. Urine Na low, suggesting hypovolemic hyponatremia -resume NS, follow H/O lung cancer - reportedly in remission -needs f/u CXR in 4-6 weeks once PNA clears Hypothyroidism - cont levothyroxine Subjective: persistent tachycardia. significant [place]VEDO Objective: Vital Signs Temp Pulse Resp BP Pulse Ox 36.5 C 110 H 27 H 153/97 H 94 08/16/18 07:30 08/16/18 10:49 08/16/18 10:49 08/16/18 07:30 08/16/18 10:49 Laboratory Results 08/13/18 05:30 08/15/18 05:28 08/15/18 08/16/18 08/17/18 05:59 05:59 05:59 Intake Total 3236 700 Output Total 1950 700 Balance 1286 0 PT 18.1 SEC (12.0-15.0) H 08/12/18 09:45 INR 1.48 (0.83-1.16) H 08/12/18 09:45 - Physical Exam Constitutional: no apparent distress, appears nourished Eyes: PERRL, anicteric sclera Ears, Nose, Mouth, Throat: moist mucous membranes, hearing normal Cardiovascular: no murmur, rub, or gallop, tachycardia, No regular rate and rhythym Respiratory: no respiratory distress, no rales or rhonchi Gastrointestinal: normoactive bowel sounds, soft, non-tender abdomen Genitourinary: no bladder fullness, No khanna in urethra Skin: warm, normal color Musculoskeletal: full muscle strength Neurologic: AAOx3 ICD10 Worksheet Patient Problems: Problems Problem Status Onset COPD exacerbation Acute Pneumonia Acute Renal insufficiency Acute Sepsis Acute chronic disease mgmt/transitional care Acute
[2018-08-16 11:52] LABS: PLATELET COUNT 260 10^3/uL (150-400)
--- NOTE | 2018-08-16 12:52 | PDINTPN ---
Costume Maker Progress Note Assessment/Plan: Assessment/plan: * Pneumococcal pneumonia-dense right upper lobe and hint of left lower lobe. Chest x-ray with some improvement -continue current antibiotics -aggressive pulmonary toilet and Mucomyst * Chronic obstructive pulmonary disease -continue nebulized treatments and PO steroids * Acute respiratory failure-secondary to above -continue supplemental oxygen, wean as tolerated -Agree with CT of chest * Pneumococcal bacteremia -repeat blood cultures pending * History of lung cancer-status post radiation and chemotherapy * Hypertension-controlled * Hyperthyroidism * VT prophylaxis * Stress ulcer prophylaxis-not necessary * Out of bed to chair Subjective: Sitting up in bed. Resting comfortably. Markedly breathless and hypoxemic with any form of exertion. Remains tachycardic. Objective: Vital Signs Temp Pulse Resp BP Pulse Ox 36.6 C 128 H 20 156/89 H 90 L 08/16/18 11:28 08/16/18 11:28 08/16/18 11:28 08/16/18 11:28 08/16/18 11:28 Laboratory Results 08/16/18 11:40 08/15/18 05:28 08/15/18 08/16/18 08/17/18 05:59 05:59 05:59 Intake Total 3236 700 Output Total 1950 700 Balance 1286 0 PT 18.1 SEC (12.0-15.0) H 08/12/18 09:45 INR 1.48 (0.83-1.16) H 08/12/18 09:45 - Time Spent With Patient Time Spent With Patient: 35 min of time spent with patient, over 1/2 involved with coordination of care or counseling. Case discussed with hospitalist Physical Exam - Physical Exam General Appearance: alert, no apparent distress EENT: PERRL/EOMI Neck: non-tender, full range of motion, supple, normal inspection Respiratory: prolonged expiration, No respiratory distress, No wheezing Cardiac/Chest: normal peripheral pulses, regular rate, rhythm, tachycardia Peripheral Pulses: 2+: carotid (R), carotid (L), femoral (R), femoral (L), dorsalis-pedis (R), dorsalis-pedis (L) Abdomen: normal bowel sounds, non-tender, soft Pelvic Exam: deferred Rectal: deferred Extremities: normal range of motion, non-tender, normal inspection, normal capillary refill Neuro/Psych: no motor/sensory deficits, alert, normal mood/affect, oriented x 3 ICD10 Worksheet Patient Problems: Problems Problem Status Onset COPD exacerbation Acute Pneumonia Acute Renal insufficiency Acute Sepsis Acute chronic disease mgmt/transitional care Acute
[2018-08-16] MEDS ORDERED: IOPAMIDOL (ISOVUE 370) 100 ML BTL IV ONE (13:05)
--- NOTE | 2018-08-16 15:39 | ASMTCMCOM ---
CM Note CM Note Notes: Pt admitted to hospital for pneumonia, she lives alone but has a son in [place]. PT clears pt for home, anticipate she'll dc home when medically stable, CM available for any changes. DC Plan: Independent Date Signed: 08/16/2018 03:38 PM Electronically Signed By:Taty Fernández RN
[2018-08-16] MEDS ORDERED: LIDOCAINE 1% 300 MG/30 ML SDV ONE (16:36)
--- NOTE | 2018-08-16 21:19 | GHP ---
DATE OF ADMISSION: 08/12/2018 Asked to see the patient by Dr. Moo Stout in regard to right empyema or parapneumonic effusion i nfected. HISTORY OF PRESENT ILLNESS: A 77-year-old female suffering from pneumonia, intermittent prednisone u se, underlying lung disease, previous smoker, currently has an elevated white blood count, pneumonia and a CT scan done earlier today shows a loculated posterior somewhat inferior collection in the left lung. This was aspirated by Dr. Stout and showed fluid with a low pH and a low glucose consistent with an infected fluid collection. The patient describes the fluid as fairly thin as opposed to thick pus, a lthough I do not have a more accurate picture of the appearance. She states she feels somewhat better since Dr. Stout aspirated some of the fluid. PHYSICAL EXAM: Pleasant elderly female, alert, cooperative with the exam, asking insightful question s. 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 Lungs show decreased breath sounds in both bases, but left greater than the right. There is some dul lness to percussion posteriorly. CT scan is reviewed showing the large loculated collection not free flowing. This is several inches below the skin where this could be assessed low and lateral not easily amenable to a standard chest t ube placed in the mid axillary line and placement at the bedside would have some risk of diaphragmati c injury or difficulty in finding the loculation. Also, the patient is on Lovenox, which can make placing a large-bore chest tube through thick chest w all and intercostal musculature dangerous. Her INR is also abnormal at 1.48. SUMMARY: In summary, I recommend we stop her Lovenox tonight, place the chest tube in the morning an d have IR do this. My previous discussion with Dr. Stout suggested he would like a large bore chest tube as opposed to some of the small IR drains, but I think it is reasonable since this fluid sounds like it is fairly t hin to try an IR drain initially. If she does require a larger chest tube, I would recommend we plac e this in the OR under anesthesia because of the posterior location. I will place the order for IR d rainage and hold her Lovenox, et cetera tonight. /[id number]/MODL
[2018-08-17] MEDS: FLUTICASONE/SALMETER 250/50MCG DISKUS IH SCH ×4 (00:06→21:33)
[2018-08-17] MEDS: ACETYLCYSTEINE 10% IH/PO 4 ML VIAL IH SCH ×5 (00:40→21:25)
[2018-08-17] MEDS: NS 1,000 ML IV SCH ×2 (03:30→12:31)
[2018-08-17] MEDS: LEVOTHYROXINE 50 MCG TAB PO SCH (05:44)
[2018-08-17] MEDS: LEVALBUTEROL 1.25 MG/3 ML DEYVIAL IH PRN ×4 (06:08→21:25)
[2018-08-17 06:09] LABS: PLATELET COUNT 210 10^3/uL (150-400)
[2018-08-17] MEDS: guaiFENesin 600 MG TAB.ER PO SCH ×2 (08:56→20:14)
[2018-08-17] MEDS: FAMOTIDINE 20 MG TAB PO SCH ×2 (08:57→20:14)
[2018-08-17] MEDS: predniSONE 20 MG TAB PO SCH (08:57)
--- NOTE | 2018-08-17 09:47 | HOSPPROG ---
Hospitalist Progress Note Assessment/Plan: 77 yo f w pneumococcal pneumonia, sepsis, empyema empyema: chest tube today. some debate as to large vs small chest tube this explains tachycardia AHRF 2/2 PNA and acute exacerbation of COPD - 3-4 LPM. Not on home O2. RVP neg. -cont prednisone, nebs -wean O2 as able -abx as below Sepsis 2/2 PNA - (tachypnea, tachycardia, elevated lactate). -Cont ceftriaxonej -d/c azithromycin s/p 1.5 g tachycardia: euvolemic sinus follow Pneumococcal bacteremia 2/2 above - no murmur -await sensitivities, if Levaquin sensitive, could transition to orals to complete 14 d therapy (discussed with ID) -repeat BCx's 08/14- neg thus far Sinus tachycardia - likely 2/2 bacteremia, possibly hastened by albuterol and steroids -changed to xopenex -resume IVF's today, if not improving with fluids, consider w/u for PE COPD exac - as above Hyponatremia - Na trending down. Urine Na low, suggesting hypovolemic hyponatremia -resume NS, follow H/O lung cancer - reportedly in remission -needs f/u CXR in 4-6 weeks once PNA clears Hypothyroidism - cont levothyroxine Subjective: case d/w may villanueva. less dyspneic this AM. pleural fluid studies c/w empyema Objective: Vital Signs Temp Pulse Resp BP Pulse Ox 36.8 C 107 H 20 152/78 H 96 08/17/18 07:23 08/17/18 07:23 08/17/18 07:23 08/17/18 07:23 08/17/18 07:23 Microbiology 08/16/18 16:28 Gram Stain - Final Thoracic Fluid - Aspirate Laboratory Results 08/17/18 04:37 08/17/18 04:37 08/16/18 08/17/18 08/18/18 05:59 05:59 05:59 Intake Total 700 2847 Output Total 700 250 Balance 0 2597 PT 18.1 SEC (12.0-15.0) H 08/12/18 09:45 INR 1.48 (0.83-1.16) H 08/12/18 09:45 - Physical Exam Constitutional: no apparent distress, appears nourished Eyes: PERRL, anicteric sclera Ears, Nose, Mouth, Throat: moist mucous membranes, hearing normal Cardiovascular: no murmur, rub, or gallop, tachycardia Respiratory: other (diffuse rhonchi, greater on L) Gastrointestinal: normoactive bowel sounds, soft, non-tender abdomen Genitourinary: no bladder fullness, No khanna in urethra Skin: warm, normal color Musculoskeletal: full muscle strength, no muscle tenderness Neurologic: AAOx3 Psychiatric: interacting appropriately, not anxious Lymph, Heme, Immunologic: no cervical LAD ICD10 Worksheet Patient Problems: Problems Problem Status Onset COPD exacerbation Acute Pneumonia Acute Renal insufficiency Acute Sepsis Acute chronic disease mgmt/transitional care Acute
--- NOTE | 2018-08-17 09:55 | SOAPPROG ---
SOAP Progress Note Assessment/Plan: Assessment: bilateral pneumonia left basilar posterior pleural effusion with prior history of multiple chest tubes CT findings suggest a significant pleural thickening which may make complete re- expansion difficult We discussed possible need for VATS or Thoracotomy Plan: IR drainage discussed, surgical standby and follow up 08/17/18 09:58 Subjective: resting comfortably without respiratory distress Candi is s/p left thoracentesis for parapneumonic effusion She reports prior left chest tube x 3 when she was in [place] I reviewed her CXR/CT with Dr. Castaneda Objective: Vital Signs Temp Pulse Resp BP Pulse Ox 36.8 C 107 H 20 152/78 H 96 08/17/18 07:23 08/17/18 07:23 08/17/18 07:23 08/17/18 07:23 08/17/18 07:23 Microbiology 08/16/18 16:28 Gram Stain - Final Thoracic Fluid - Aspirate Laboratory Results 08/17/18 04:37 08/17/18 04:37 08/16/18 08/17/18 08/18/18 05:59 05:59 05:59 Intake Total 700 2847 Output Total 700 250 Balance 0 2597 PT 18.1 SEC (12.0-15.0) H 08/12/18 09:45 INR 1.48 (0.83-1.16) H 08/12/18 09:45 Physical Exam - Physical Exam General Appearance: alert, no apparent distress Respiratory: decreased breath sounds, rhonchi Cardiac/Chest: regular rate, rhythm ICD10 Worksheet Patient Problems: Problems Problem Status Onset COPD exacerbation Acute Pneumonia Acute Renal insufficiency Acute Sepsis Acute chronic disease [facility]/transitional care Acute
[2018-08-17 12:24] LABS: INR 1.26 (0.83-1.16)
[2018-08-17] MEDS ORDERED: LIDOCAINE 1% 300 MG/30 ML SDV ONE (13:20)
[2018-08-17] MEDS ORDERED: fentaNYL 100 MCG/2 ML INJ IVP PRN (13:31)
[2018-08-17] MEDS ORDERED: FLUMAZENIL 0.5 MG/5 ML MDV IVP PRN (13:31)
[2018-08-17] MEDS ORDERED: MEPERIDINE 25 MG/ML SYR IVP PRN (13:31)
[2018-08-17] MEDS ORDERED: NALOXONE HCL 0.4 MG/ML INJ IVP PRN (13:31)
[2018-08-17] MEDS ORDERED: MIDAZOLAM 2 MG/2 ML VIAL IVP PRN (13:31)
[2018-08-17] MEDS ORDERED: HEPARIN 10,000 UNIT/10 ML MDV (1,000 UNIT/ML) IVP PRN (13:31)
[2018-08-17] MEDS ORDERED: NS 1,000 ML IV SCH (13:45)
[2018-08-17] MEDS ORDERED: ALTEPLASE 2 MG VIAL ONE (14:47)
--- NOTE | 2018-08-17 15:42 | PDPROPOC ---
Sedation Plan of Care ASA Classification: ASA 2 Mallampati Score: Class 2 Mallampati Reference Image:
--- NOTE | 2018-08-17 15:47 | PDRADPN ---
Radiology Procedure Note Date of Procedure: 08/17/18 Radiologist: Taye Rodriguez Anesthesia: IV Sedation Pre-op Diagnosis: effusion Post-op Diagnosis: same Procedure: left chest tube placement Finding(s): moderate left pleural effusion, 10F pigtail placed in hydropneumothorax Inf/Abcess present in the surg proc area at time of surgery?: Yes Depth: Organ Space
[2018-08-18] MEDS ORDERED: KETOROLAC 15 MG/1 ML SDV IVP ONE (03:58)
[2018-08-18] MEDS: LEVOTHYROXINE 50 MCG TAB PO SCH (05:21)
[2018-08-18] MEDS: LEVALBUTEROL 1.25 MG/3 ML DEYVIAL IH PRN ×3 (05:32→16:59)
[2018-08-18] MEDS: ACETYLCYSTEINE 10% IH/PO 4 ML VIAL IH SCH ×4 (05:38→23:24)
[2018-08-18] MEDS: FAMOTIDINE 20 MG TAB PO SCH ×2 (08:49→20:30)
[2018-08-18] MEDS: guaiFENesin 600 MG TAB.ER PO SCH ×2 (08:49→20:30)
[2018-08-18] MEDS: predniSONE 20 MG TAB PO SCH (08:49)
--- NOTE | 2018-08-18 08:51 | HOSPPROG ---
Hospitalist Progress Note Assessment/Plan: 77 yo f w pneumococcal pneumonia, sepsis, empyema empyema: chest tube today. some debate as to large vs small chest tube this explains tachycardia less tachycardic and dyspneic > 1 L in pleurevac about 100 cc since 5 PM continue suction today AHRF 2/2 PNA and acute exacerbation of COPD - 3-4 LPM. Not on home O2. RVP neg. -cont prednisone, nebs -wean O2 as able -abx as below Sepsis 2/2 PNA - (tachypnea, tachycardia, elevated lactate). -Cont ceftriaxonej -d/c azithromycin s/p 1.5 g tachycardia: euvolemic sinus follow Pneumococcal bacteremia 2/2 above - no murmur -await sensitivities, if Levaquin sensitive, could transition to orals to complete 14 d therapy (discussed with ID) -repeat BCx's 08/14- neg thus far Sinus tachycardia - likely 2/2 bacteremia, possibly hastened by albuterol and steroids -changed to xopenex -resume IVF's today, if not improving with fluids, consider w/u for PE COPD exac - as above Hyponatremia - Na trending down. Urine Na low, suggesting hypovolemic hyponatremia -resume NS, follow H/O lung cancer - reportedly in remission -needs f/u CXR in 4-6 weeks once PNA clears Hypothyroidism - cont levothyroxine Subjective: casse d/w dr salgado Objective: Vital Signs Temp Pulse Resp BP Pulse Ox 36.6 C 93 18 137/68 H 96 08/18/18 08:09 08/18/18 08:09 08/18/18 08:09 08/18/18 08:09 08/18/18 08:09 Microbiology 08/16/18 16:28 Gram Stain - Final Thoracic Fluid - Aspirate Laboratory Results 08/17/18 04:37 08/17/18 04:37 08/17/18 08/18/18 08/19/18 05:59 05:59 05:59 Intake Total 2847 1350 350 Output Total 250 220 Balance 2597 1130 350 PT 16.0 SEC (12.0-15.0) H 08/17/18 12:00 INR 1.26 (0.83-1.16) H 08/17/18 12:00 - Physical Exam Constitutional: no apparent distress, appears nourished Eyes: PERRL, anicteric sclera Ears, Nose, Mouth, Throat: moist mucous membranes, hearing normal Cardiovascular: regular rate and rhythym, no murmur, rub, or gallop Respiratory: no respiratory distress, other (chest tube mid axillary line. crackles L base) Gastrointestinal: normoactive bowel sounds, soft, non-tender abdomen Genitourinary: no bladder fullness, No khanna in urethra Skin: warm, normal color Musculoskeletal: full muscle strength Neurologic: AAOx3 ICD10 Worksheet Patient Problems: Problems Problem Status Onset COPD exacerbation Acute Pneumonia Acute Renal insufficiency Acute Sepsis Acute chronic disease mgmt/transitional care Acute
--- NOTE | 2018-08-18 09:01 | SOAPPROG ---
SOAP Progress Note Assessment/Plan: Assessment: Plan: Subjective: feels better. 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 left chest drain has put out 500 into pleruavac- fairly serous yellow fluid- not purulent nor particulate- asses: infected parapneumonic effusion with drain in place. recc: check advanced manager, liekly needs repaeat ct scan tommorrow. Objective: Vital Signs Temp Pulse Resp BP Pulse Ox 36.6 C 93 18 137/68 H 96 08/18/18 08:09 08/18/18 08:09 08/18/18 08:09 08/18/18 08:09 08/18/18 08:09 Microbiology 08/16/18 16:28 Gram Stain - Final Thoracic Fluid - Aspirate Laboratory Results 08/17/18 04:37 08/17/18 04:37 08/17/18 08/18/18 08/19/18 05:59 05:59 05:59 Intake Total 2847 1350 350 Output Total 250 220 Balance 2597 1130 350 PT 16.0 SEC (12.0-15.0) H 08/17/18 12:00 INR 1.26 (0.83-1.16) H 08/17/18 12:00 ICD10 Worksheet Patient Problems: Problems Problem Status Onset COPD exacerbation Acute Pneumonia Acute Renal insufficiency Acute Sepsis Acute chronic disease [facility]/transitional care Acute
[2018-08-18] MEDS: FLUTICASONE/SALMETER 250/50MCG DISKUS IH SCH ×2 (11:22→20:42)
[2018-08-18 12:51] LABS: PLATELET COUNT 261 10^3/uL (150-400)
--- NOTE | 2018-08-18 13:06 | SOAPPROG ---
SOAP Progress Note Assessment/Plan: Assessment/plan: * Pneumococcal pneumonia-dense right upper lobe and hint of left lower lobe. Chest x-ray with some improvement -continue current antibiotics -aggressive pulmonary toilet and Mucomyst * Empyema-status post chest tube * Chronic obstructive pulmonary disease -continue nebulized treatments and PO steroids * Acute respiratory failure-secondary to above -continue supplemental oxygen, wean as tolerated -Agree with CT of chest * Pneumococcal bacteremia -repeat blood cultures pending * History of lung cancer-status post radiation and chemotherapy * Hypertension-controlled * Hyperthyroidism * VT prophylaxis * Stress ulcer prophylaxis-not necessary * Out of bed to chair Subjective: Comfortable Objective: Vital Signs Temp Pulse Resp BP Pulse Ox 36.7 C 102 H 18 150/91 H 95 08/18/18 12:00 08/18/18 12:00 08/18/18 12:00 08/18/18 12:00 08/18/18 12:00 Microbiology 08/16/18 16:28 Gram Stain - Final Thoracic Fluid - Aspirate Laboratory Results 08/18/18 11:57 08/17/18 08/18/18 08/19/18 05:59 05:59 05:59 Intake Total 2847 1350 350 Output Total 250 220 100 Balance 2597 1130 250 PT 16.0 SEC (12.0-15.0) H 08/17/18 12:00 INR 1.26 (0.83-1.16) H 08/17/18 12:00 - Time Spent With Patient Time Spent With Patient: 25 min of time spent with patient, over 1/2 involved coordination care or counseling. Physical Exam - Physical Exam General Appearance: alert, no apparent distress EENT: PERRL/EOMI Neck: non-tender Respiratory: crackles (Few basilar), prolonged expiration, No respiratory distress, No wheezing Cardiac/Chest: normal peripheral pulses, regular rate, rhythm Abdomen: normal bowel sounds, non-tender, soft Pelvic Exam: deferred Rectal: deferred Skin: warm/dry Neuro/Psych: no motor/sensory deficits, alert, normal mood/affect, oriented x 3 ICD10 Worksheet Patient Problems: Problems Problem Status Onset COPD exacerbation Acute Pneumonia Acute Renal insufficiency Acute Sepsis Acute chronic disease mgmt/transitional care Acute
[2018-08-19 05:26] LABS: PLATELET COUNT 282 10^3/uL (150-400)
[2018-08-19] MEDS: LEVALBUTEROL 1.25 MG/3 ML DEYVIAL IH PRN ×4 (06:12→16:55)
[2018-08-19] MEDS: LEVOTHYROXINE 50 MCG TAB PO SCH (07:00)
[2018-08-19] MEDS: FAMOTIDINE 20 MG TAB PO SCH ×2 (08:22→20:57)
[2018-08-19] MEDS: predniSONE 20 MG TAB PO SCH (08:22)
[2018-08-19] MEDS: guaiFENesin 600 MG TAB.ER PO SCH ×2 (08:22→20:57)
[2018-08-19] MEDS: ACETYLCYSTEINE 10% IH/PO 4 ML VIAL IH SCH ×3 (08:51→16:55)
[2018-08-19] MEDS: FLUTICASONE/SALMETER 250/50MCG DISKUS IH SCH ×2 (11:09→22:37)
--- NOTE | 2018-08-19 11:37 | HOSPPROG ---
Hospitalist Progress Note Assessment/Plan: 77 yo f w pneumococcal pneumonia, sepsis, empyema empyema: chest tube today. some debate as to large vs small chest tube this explains tachycardia less tachycardic and dyspneic > 1 L in pleurevac about 100 cc since 5 PM continue suction today 08/19- chest tube w no output overnight, but 100 cc today continue suction AHRF 2/2 PNA and acute exacerbation of COPD - 3-4 LPM. Not on home O2. RVP neg. -cont prednisone, nebs -wean O2 as able -abx as below Sepsis 2/2 PNA - (tachypnea, tachycardia, elevated lactate). -Cont ceftriaxone day 03/30 -d/c azithromycin s/p 1.5 g tachycardia: euvolemic sinus follow improved dc tele Pneumococcal bacteremia 2/2 above - no murmur -await sensitivities, if Levaquin sensitive, could transition to orals to complete 14 d therapy (discussed with ID) -repeat BCx's 08/14- neg thus far Sinus tachycardia - likely 2/2 bacteremia, possibly hastened by albuterol and steroids -changed to xopenex -resume IVF's today, if not improving with fluids, consider w/u for PE COPD exac - as above Hyponatremia - Na trending down. Urine Na low, suggesting hypovolemic hyponatremia -resume NS, follow H/O lung cancer - reportedly in remission -needs f/u CXR in 4-6 weeks once PNA clears Hypothyroidism - cont levothyroxine Subjective: cxr unchanged. pigtail in place. no pneumothorax (interp by me) Objective: Vital Signs Temp Pulse Resp BP Pulse Ox 36.6 C 112 H 20 141/80 H 94 08/19/18 07:54 08/19/18 07:54 08/19/18 07:54 08/19/18 07:54 08/19/18 07:54 Microbiology 08/16/18 16:28 Gram Stain - Final Thoracic Fluid - Aspirate Laboratory Results 08/19/18 04:41 08/19/18 04:41 08/18/18 08/19/18 08/20/18 05:59 05:59 05:59 Intake Total 1350 750 Output Total 220 1700 Balance 1130 -950 PT 16.0 SEC (12.0-15.0) H 08/17/18 12:00 INR 1.26 (0.83-1.16) H 08/17/18 12:00 - Physical Exam Constitutional: no apparent distress, appears nourished Eyes: PERRL, anicteric sclera Ears, Nose, Mouth, Throat: moist mucous membranes, hearing normal Cardiovascular: regular rate and rhythym, no murmur, rub, or gallop Respiratory: no respiratory distress, no rales or rhonchi Gastrointestinal: normoactive bowel sounds, soft, non-tender abdomen Genitourinary: no bladder fullness, No khanna in urethra Skin: warm, normal color Musculoskeletal: full muscle strength Neurologic: AAOx3, sensation intact bilaterally Psychiatric: interacting appropriately ICD10 Worksheet Patient Problems: Problems Problem Status Onset COPD exacerbation Acute Pneumonia Acute Renal insufficiency Acute Sepsis Acute chronic disease mgmt/transitional care Acute
--- NOTE | 2018-08-19 13:16 | PDINTPN ---
Finance Professional Progress Note Assessment/Plan: ASSESSMENT 77 yo F with COPD not on home oxygen admitted with pna, empyema and acute on chronic hypoxemic respiratory failure. Patient still with hypoxemic respiratory failure in in adequately drain pleural effusion. # pneumonia # empyema status post 10 Irish pigtail chest tube on # acute hypoxemic respiratory failure # AECOPD # dyspnea PLAN # DNase 5 mg and 30 cc sterile water and tPA 5 mg and 30 cc in S to be instilled intrapleurally twice daily x3 days to decrease hospital length of stay and need for VATS N Engl J Med 2011; [phone] # maintain chest tube to continuous suction at negative 20 cm H20. # decreased prednisone to 20 mg daily on 08/19/18 # Continue supplemental oxygen # continue aggressive pulmonary toilet # continue abx # # Feeding - reg diet # Analgesia APAP, # Sedation none # Thromboprophylaxis - SQ hep # Head of bed elevated # Ulcer prophylaxis - NA # Glucose SSI # Skin no skin breakdown # Delirium - delirium precautions ABX CTX EVENTS 08/16/18 thora 08/17/18 L pigtail chest tube by IR CX Data 08/12/18 BCx strep pna x 2 08/14/18 BCx neg 08/16/18 Pleural fluid 3+ WBC, no organisms IMAGING 08/19/18 CXR residual, loculated L sided pleural effusion Objective: Vital Signs Temp Pulse Resp BP Pulse Ox 36.6 C 108 H 20 140/76 H 93 08/19/18 12:00 08/19/18 12:00 08/19/18 12:00 08/19/18 12:00 08/19/18 12:00 Microbiology 08/14/18 11:50 Blood Culture - Final Blood 08/14/18 12:00 Blood Culture - Final Blood 08/16/18 16:28 Gram Stain - Final Thoracic Fluid - Aspirate Laboratory Results 08/19/18 04:41 08/19/18 04:41 08/18/18 08/19/18 08/20/18 05:59 05:59 05:59 Intake Total 1350 750 Output Total 220 1700 Balance 1130 -950 PT 16.0 SEC (12.0-15.0) H 08/17/18 12:00 INR 1.26 (0.83-1.16) H 08/17/18 12:00 I personally reviewed and interpreted patient's radiographic images Physical Exam - Physical Exam General Appearance: WD/WN, alert EENT: PERRL/EOMI, normal ENT inspection Respiratory: chest non-tender, other (Decreased breath sounds left base. Left side chest tube in with some tightening. Purulent material in Pleur-evac) Cardiac/Chest: normal peripheral pulses, regular rate, rhythm Abdomen: non-tender, soft Pelvic Exam: deferred Skin: normal color, warm/dry Extremities: normal range of motion, non-tender Neuro/Psych: no motor/sensory deficits, alert ICD10 Worksheet Patient Problems: Problems Problem Status Onset COPD exacerbation Acute Pneumonia Acute Renal insufficiency Acute Sepsis Acute chronic disease mgmt/transitional care Acute
[2018-08-19] MEDS ORDERED: NS IPL SCH (14:00)
[2018-08-19] MEDS ORDERED: ALTEPLASE IPL SCH (14:00)
[2018-08-19] MEDS: ALTEPLASE IPL SCH (14:40)
[2018-08-19] MEDS: DORNASE ALFA IPL SCH (14:40)
[2018-08-19] MEDS: STERILE WATER IPL SCH (14:40)
[2018-08-19] MEDS: NS IPL SCH (14:40)
[2018-08-19] MEDS ORDERED: KETOROLAC 15 MG/1 ML SDV IVP ONE (21:15)
[2018-08-20] MEDS: ACETYLCYSTEINE 10% IH/PO 4 ML VIAL IH SCH ×4 (01:14→16:16)
[2018-08-20] MEDS: LEVOTHYROXINE 50 MCG TAB PO SCH (06:14)
[2018-08-20] MEDS ORDERED: KETOROLAC 15 MG/1 ML SDV ONE (06:21)
--- NOTE | 2018-08-20 07:22 | SOAPPROG ---
SOAP Progress Note Assessment/Plan: Assessment: Plan: Subjective: hd 3 left pleuraleffusion vss, af wbc dropping daily, 12 k today. cxr yesterday fairly clear at base. assess: responding to chest tube drainage, fluid not grossly purulent. i expect this all to resolve without operative debridement. would dc catheter whendraiange 50 mls a day or less, or normalwbc and vitals. Objective: Vital Signs Temp Pulse Resp BP Pulse Ox 36.9 C 106 H 18 125/73 H 95 08/20/18 04:00 08/20/18 04:00 08/20/18 04:00 08/20/18 04:00 08/20/18 04:00 Microbiology 08/16/18 16:28 Gram Stain - Final Thoracic Fluid - Aspirate Body Fluid Culture - Final 08/14/18 11:50 Blood Culture - Final Blood 08/14/18 12:00 Blood Culture - Final Blood Laboratory Results 08/19/18 04:41 08/19/18 04:41 08/19/18 08/20/18 08/21/18 05:59 05:59 05:59 Intake Total 750 500 Output Total 1700 2040 Balance -950 -1540 PT 16.0 SEC (12.0-15.0) H 08/17/18 12:00 INR 1.26 (0.83-1.16) H 08/17/18 12:00 ICD10 Worksheet Patient Problems: Problems Problem Status Onset COPD exacerbation Acute Pneumonia Acute Renal insufficiency Acute Sepsis Acute chronic disease [facility]/transitional care Acute
[2018-08-20] MEDS: DORNASE ALFA IPL SCH ×3 (07:26→22:56)
[2018-08-20] MEDS: STERILE WATER IPL SCH ×3 (07:26→22:56)
[2018-08-20] MEDS: NS IPL SCH ×3 (07:26→22:56)
[2018-08-20] MEDS: ALTEPLASE IPL SCH ×3 (07:26→22:56)
[2018-08-20] MEDS: predniSONE 20 MG TAB PO SCH (09:02)
[2018-08-20] MEDS: guaiFENesin 600 MG TAB.ER PO SCH ×2 (09:02→22:56)
[2018-08-20] MEDS: FAMOTIDINE 20 MG TAB PO SCH ×2 (09:02→22:56)
[2018-08-20] MEDS ORDERED: NS 1,000 ML IV ONE (09:03)
--- NOTE | 2018-08-20 09:07 | HOSPPROG ---
Hospitalist Progress Note Assessment/Plan: 77 yo f w pneumococcal pneumonia, sepsis, empyema empyema: chest tube today. some debate as to large vs small chest tube this explains tachycardia less tachycardic and dyspneic > 1 L in pleurevac about 100 cc since 5 PM continue suction today 08/20- after DNase and tPA, 500 cc out overnight continue current plan discussed w patient how this can take days to resolve AHRF 2/2 PNA and acute exacerbation of COPD - 3-4 LPM. Not on home O2. RVP neg. -cont prednisone, nebs -wean O2 as able -abx as below Sepsis 2/2 PNA - (tachypnea, tachycardia, elevated lactate). -Cont ceftriaxone day 03/30 -d/c azithromycin s/p 1.5 g tachycardia: euvolemic sinus follow improved 08/20: check tsh and basic labs volume challenge- is losing fluid via chest tube output Pneumococcal bacteremia 2/2 above - no murmur -await sensitivities, if Levaquin sensitive, could transition to orals to complete 14 d therapy (discussed with ID) -repeat BCx's 08/14- neg thus far Sinus tachycardia - likely 2/2 bacteremia, possibly hastened by albuterol and steroids -changed to xopenex -resume IVF's today, if not improving with fluids, consider w/u for PE COPD exac - as above Hyponatremia - Na trending down. Urine Na low, suggesting hypovolemic hyponatremia -resume NS, follow H/O lung cancer - reportedly in remission -needs f/u CXR in 4-6 weeks once PNA clears Hypothyroidism - cont levothyroxine Subjective: 500 cc out overnight of chest tube. remains tachy. constipated. case d/w dr burciaga Objective: Vital Signs Temp Pulse Resp BP Pulse Ox 36.6 C 113 H 16 125/73 H 95 08/20/18 08:00 08/20/18 08:00 08/20/18 08:00 08/20/18 08:00 08/20/18 08:00 Microbiology 08/16/18 16:28 Gram Stain - Final Thoracic Fluid - Aspirate Body Fluid Culture - Final 08/14/18 11:50 Blood Culture - Final Blood 08/14/18 12:00 Blood Culture - Final Blood Laboratory Results 08/19/18 04:41 08/19/18 04:41 08/19/18 08/20/18 08/21/18 05:59 05:59 05:59 Intake Total 750 500 Output Total 1700 2039 Balance -950 -1540 PT 16.0 SEC (12.0-15.0) H 08/17/18 12:00 INR 1.26 (0.83-1.16) H 08/17/18 12:00 - Physical Exam Constitutional: no apparent distress, appears nourished Eyes: PERRL, anicteric sclera Ears, Nose, Mouth, Throat: moist mucous membranes, hearing normal Cardiovascular: no murmur, rub, or gallop, tachycardia Respiratory: no respiratory distress, rhonchi Gastrointestinal: normoactive bowel sounds, soft, non-tender abdomen Genitourinary: no bladder fullness, No khanna in urethra Skin: warm, normal color Musculoskeletal: full muscle strength Neurologic: AAOx3 ICD10 Worksheet Patient Problems: Problems Problem Status Onset COPD exacerbation Acute Pneumonia Acute Renal insufficiency Acute Sepsis Acute chronic disease [facility]/transitional care Acute
[2018-08-20] MEDS: FLUTICASONE/SALMETER 250/50MCG DISKUS IH SCH ×2 (09:39→20:42)
--- NOTE | 2018-08-20 12:27 | PDINTPN ---
Medical Screener Progress Note Assessment/Plan: ASSESSMENT 77 yo F with COPD not on home oxygen admitted with pna, empyema and acute on chronic hypoxemic respiratory failure. Patient still with hypoxemic respiratory failure in in adequately drain pleural effusion. # pneumonia # empyema status post 10 [place] pigtail chest tube on 08/17/18 # strep pneumonia bacteremia. - repeat cultures negative # acute hypoxemic respiratory failure # AECOPD # dyspnea # sepsis PLAN # Continue IV CTX while inpatient. # Switch to levaquin or moxyfloxacin on discharge to complete 2 week total abx course # DNase 5 mg and 30 cc sterile water and tPA 5 mg and 30 cc in S to be instilled intrapleurally twice daily x3 days (started 08/20/18) to decrease hospital length of stay and need for VATS N Engl J Med 2011; [id number] # IR to change chest tube over a wire due to distal migration # maintain chest tube to continuous suction at negative 20 cm H20. # prednisone stopped (last dose 08/20/18) # Continue supplemental oxygen # continue aggressive pulmonary toilet # # Feeding - reg diet # Analgesia APAP, # Sedation none # Thromboprophylaxis - SQ hep # Head of bed elevated # Ulcer prophylaxis - NA # Glucose SSI # Skin no skin breakdown # Delirium - delirium precautions ABX CTX EVENTS 08/16/18 thora 08/17/18 L pigtail chest tube by IR CX Data 08/12/18 BCx strep pna x 2 08/14/18 BCx neg 08/16/18 Pleural fluid 3+ WBC, no organisms IMAGING 08/20/2018-interval improvement effusion, further distal migration of pigtail chest tube. No focal infiltrate Subjective: Patient feels better today. Increased chest tube output after tPA/DNase-450 cc overnight, 750 cc total. Denies fevers chills nausea vomiting chest pain. Ambulating. Objective: Vital Signs Temp Pulse Resp BP Pulse Ox 36.6 C 102 H 16 119/70 98 08/20/18 11:14 08/20/18 11:14 08/20/18 11:14 08/20/18 11:14 08/20/18 11:14 Microbiology 08/16/18 16:28 Gram Stain - Final Thoracic Fluid - Aspirate Body Fluid Culture - Final 08/14/18 11:50 Blood Culture - Final Blood 08/14/18 12:00 Blood Culture - Final Blood Laboratory Results 08/20/18 09:58 08/20/18 09:58 08/19/18 08/20/18 08/21/18 05:59 05:59 05:59 Intake Total 750 500 Output Total 1700 2040 Balance -950 -1540 PT 16.0 SEC (12.0-15.0) H 08/17/18 12:00 INR 1.26 (0.83-1.16) H 08/17/18 12:00 I reviewed interpreted patient's radiographic images as well as formal radiology read as per above. Physical Exam - Physical Exam General Appearance: alert, no apparent distress EENT: PERRL/EOMI, normal ENT inspection Neck: non-tender, full range of motion Respiratory: chest non-tender, lungs clear, other (Left posterior lateral pigtail chest tube with bandage in place) Cardiac/Chest: normal peripheral pulses, regular rate, rhythm Abdomen: normal bowel sounds, non-tender Rectal: deferred Back: Normal inspection Skin: normal color, warm/dry, No cyanosis Extremities: normal range of motion, non-tender, normal inspection Neuro/Psych: no motor/sensory deficits, alert, normal mood/affect, oriented x 3 , No motor weakness ICD10 Worksheet Patient Problems: Problems Problem Status Onset COPD exacerbation Acute Pneumonia Acute Renal insufficiency Acute Sepsis Acute chronic disease mgmt/transitional care Acute
[2018-08-20] MEDS: LEVALBUTEROL 1.25 MG/3 ML DEYVIAL IH PRN (16:15)
--- NOTE | 2018-08-20 17:41 | PDRADPN ---
Radiology Procedure Note Date of Procedure: 08/20/18 Radiologist: Amado Thomas Pre-op Diagnosis: Malpositioned chest tube Post-op Diagnosis: Malpositioned chest tube Indication: Empyema Procedure: Repositioning of chest tube Finding(s): Using sterile technique, the left chest tube was repositioned into a more central position in the thorax over wire, the tube was secured to the skin. Followup chest xray demonstrates intrathoracic placement of tube. Inf/Abcess present in the surg proc area at time of surgery?: No
[2018-08-20] MEDS: traMADol 50 MG TAB PO PRN (18:10)
[2018-08-20] MEDS: POLYETHYLENE GLYCOL 3350 17 GM PKT PO SCH (19:23)
[2018-08-21] MEDS: ACETYLCYSTEINE 10% IH/PO 4 ML VIAL IH SCH ×4 (01:52→16:36)
[2018-08-21] MEDS: LEVOTHYROXINE 50 MCG TAB PO SCH (06:08)
[2018-08-21] MEDS: POLYETHYLENE GLYCOL 3350 17 GM PKT PO SCH (06:08)
[2018-08-21] MEDS: FLUTICASONE/SALMETER 250/50MCG DISKUS IH SCH ×2 (08:23→21:02)
--- NOTE | 2018-08-21 08:44 | HOSPPROG ---
Hospitalist Progress Note Assessment/Plan: #Acute hypoxemic resp failure: empyema, COPD exacerbation. Chest tube out this morning. IR to replace #Strep pneumonia bacteremia/empyema: Day 06/30 abx #Leukocytosis: pred contributing. Afebrile #HTN: stable off BP meds, continue to hold #Hyponatremia: Na down 128 today. Check urine studies #Sepsis: due to Strep bacteremia #COPD exacerbation: pred, nebs #DVT ppx: SCDs #Disp: inpatient admission for chest tube, IV abx Subjective: chest tube fell out this morning Objective: Vital Signs Temp Pulse Resp BP Pulse Ox 36.6 C 103 H 18 114/75 91 L 08/21/18 08:00 08/21/18 08:29 08/21/18 08:29 08/21/18 08:00 08/21/18 08:29 Laboratory Results 08/20/18 09:58 08/20/18 09:58 08/20/18 08/21/18 08/22/18 05:59 05:59 05:59 Intake Total 500 500 Output Total 2040 1825 Balance -1540 -1325 PT 16.0 SEC (12.0-15.0) H 08/17/18 12:00 INR 1.26 (0.83-1.16) H 08/17/18 12:00 - Time Spent With Patient Time Spent with Patient: greater than 35 minutes Time Spent with Patient: Greater than 35 minutes spent on this patients care, greater than 50% of time spent counseling, educating, and coordinating care regarding the above mentioned plan. - Physical Exam Constitutional: no apparent distress Eyes: PERRL Ears, Nose, Mouth, Throat: moist mucous membranes Cardiovascular: edema (trace ankle edema) Respiratory: other (decreased breath sounds left base) Gastrointestinal: normoactive bowel sounds Genitourinary: no bladder fullness Musculoskeletal: full muscle strength Neurologic: AAOx3, CN II-XII Intact Psychiatric: interacting appropriately ICD10 Worksheet Patient Problems: Problems Problem Status Onset COPD exacerbation Acute Pneumonia Acute Renal insufficiency Acute Sepsis Acute chronic disease mgmt/transitional care Acute
[2018-08-21] MEDS: predniSONE 20 MG TAB PO SCH (09:29)
[2018-08-21] MEDS: FAMOTIDINE 20 MG TAB PO SCH ×2 (09:29→23:15)
[2018-08-21] MEDS: guaiFENesin 600 MG TAB.ER PO SCH ×2 (09:29→23:15)
[2018-08-21] MEDS ORDERED: POLYETHYLENE GLYCOL 3350 17 GM PKT PO PRN (09:47)
[2018-08-21] MEDS: FUROSEMIDE 20 MG/2 ML VIAL IVP SCH ×2 (11:43→11:53)
[2018-08-21] MEDS: STERILE WATER IPL SCH (11:54)
[2018-08-21] MEDS: DORNASE ALFA IPL SCH (11:54)
[2018-08-21] MEDS: NS IPL SCH (11:55)
[2018-08-21] MEDS: ALTEPLASE IPL SCH (11:55)
[2018-08-21] MEDS: LEVALBUTEROL 1.25 MG/3 ML DEYVIAL IH PRN (15:57)
--- NOTE | 2018-08-21 16:35 | ASMTCMCOM ---
CM Note CM Note Notes: Cm spoke to MARIAN Pham. Pt pulled out her chest tube most likely. Pt had a lung x-ray. Pt will most likely d/c independent when medically stable. No therapies ordered at this time. CM available for changes. Plan: Independent Date Signed: 08/21/2018 04:35 PM Electronically Signed By:PIYUSH Garcia
--- NOTE | 2018-08-21 16:36 | PDINTPN ---
Brand Representative Progress Note Assessment/Plan: ASSESSMENT 77 yo F with COPD not on home oxygen admitted with pna, empyema and acute on chronic hypoxemic respiratory failure. # pneumonia # empyema status post 10 Ugandan pigtail chest tube on 08/17/18, dislodged and replaced 08/20/18, dislodged and unable to replace on 08/21. # strep pneumonia bacteremia. - repeat cultures negative # acute hypoxemic respiratory failure # AECOPD # dyspnea # sepsis PLAN # Continue IV CTX while inpatient. # Switch to levaquin or moxyfloxacin on discharge to complete 2 week total abx course # status post DNAse/TPA x 2 doses # CT chest with contrast to evaluate residual empyema # IR unable to replace chest tube over catheter and no signficant fluid on plain film # prednisone stopped 08/20/18 # consider diuresis given increased interstitial markings # Continue supplemental oxygen # continue aggressive pulmonary toilet ABX CTX EVENTS 08/16/18 thora 08/17/18 L pigtail chest tube by IR 08/20/18 chest tube dislodged, replaced by IR 08/21/18 2nd chest tube dislodged and IR unable to replace chest tube CX Data 08/12/18 BCx strep pna x 2 08/14/18 BCx neg 08/16/18 Pleural fluid 3+ WBC, no organisms IMAGING I reviewed interpreted radiographic imaging as well as reviewed formal radiology reads 08/21/18 chest-x-ray with interval removal of chest tube small left residual effusion 08/20/2018-interval improvement effusion, further distal migration of pigtail chest tube. No focal infiltrate Subjective: Chest tube and replaced yesterday evening, this a.m. Chest tube found to have been dislodged. Interventional Radiology for Ugandan tube at bedside. She was subsequently taken down to IR however they were unable to wire through centesis tube and on fluoroscopy had minimal residual fluid. Patient denies increasing shortness of breath denies fevers denies chills denies hemoptysis denies and worsening leg swelling Objective: Vital Signs Temp Pulse Resp BP Pulse Ox 36.5 C 108 H 16 135/78 H 89 L 08/21/18 15:57 08/21/18 15:58 08/21/18 15:58 08/21/18 15:57 08/21/18 15:58 Laboratory Results 08/20/18 09:58 08/21/18 10:30 08/20/18 08/21/18 08/22/18 05:59 05:59 05:59 Intake Total 500 500 Output Total 8248 1825 200 Balance -1540 -1325 -200 PT 16.0 SEC (12.0-15.0) H 08/17/18 12:00 INR 1.26 (0.83-1.16) H 08/17/18 12:00 Physical Exam - Physical Exam General Appearance: alert, no apparent distress EENT: PERRL/EOMI, normal ENT inspection Neck: non-tender, full range of motion Respiratory: chest non-tender, lungs clear, normal breath sounds, other (Old chest tube site bandaged is mild serosanguineous fluid on bandage) Cardiac/Chest: normal peripheral pulses, regular rate, rhythm Abdomen: non-tender, soft Back: Normal inspection Skin: normal color, warm/dry Extremities: normal range of motion, non-tender, other (Trace pedal edema) ICD10 Worksheet Patient Problems: Problems Problem Status Onset COPD exacerbation Acute Pneumonia Acute Renal insufficiency Acute Sepsis Acute chronic disease [facility]/transitional care Acute
[2018-08-21] MEDS ORDERED: IOPAMIDOL (ISOVUE-300) 100 ML BTL ONE (16:52)
[2018-08-21] MEDS ORDERED: NS 1,000 ML IV SCH (19:45)
[2018-08-21] MEDS ORDERED: ALTEPLASE IPL SCH (21:00)
[2018-08-21] MEDS ORDERED: NS IPL SCH (21:00)
[2018-08-21] MEDS: SENNOSIDES/DOCUSATE SODIUM TAB PO SCH (23:15)
[2018-08-22] MEDS: LEVOTHYROXINE 50 MCG TAB PO SCH (04:41)
[2018-08-22] MEDS: FAMOTIDINE 20 MG TAB PO SCH ×2 (08:57→21:32)
[2018-08-22] MEDS: SENNOSIDES/DOCUSATE SODIUM TAB PO SCH ×2 (08:57→21:32)
[2018-08-22] MEDS: guaiFENesin 600 MG TAB.ER PO SCH ×2 (08:57→21:32)
[2018-08-22] MEDS: POLYETHYLENE GLYCOL 3350 17 GM PKT PO SCH (08:58)
[2018-08-22] MEDS: FLUTICASONE/SALMETER 250/50MCG DISKUS IH SCH ×2 (09:08→19:53)
[2018-08-22] MEDS: LEVALBUTEROL 1.25 MG/3 ML DEYVIAL IH PRN (09:08)
[2018-08-22] MEDS ORDERED: FLUMAZENIL 0.5 MG/5 ML MDV IVP PRN (13:38)
[2018-08-22] MEDS ORDERED: fentaNYL 100 MCG/2 ML INJ IVP PRN (13:38)
[2018-08-22] MEDS ORDERED: MEPERIDINE 25 MG/ML SYR IVP PRN (13:38)
[2018-08-22] MEDS ORDERED: MIDAZOLAM 2 MG/2 ML VIAL IVP PRN (13:38)
[2018-08-22] MEDS ORDERED: NALOXONE HCL 0.4 MG/ML INJ IVP PRN (13:38)
[2018-08-22] MEDS ORDERED: NS 1,000 ML IV SCH (13:45)
[2018-08-22 14:03] LABS: INR 1.16 (0.83-1.16)
[2018-08-22] MEDS ORDERED: ALTEPLASE 2 MG VIAL ONE (14:10)
--- NOTE | 2018-08-22 14:25 | PDRADPN ---
Radiology Procedure Note Date of Procedure: 08/22/18 Radiologist: Taye Rodriguez Anesthesia: IV Sedation Pre-op Diagnosis: left empyema Post-op Diagnosis: same Procedure: left chest tube placement Inf/Abcess present in the surg proc area at time of surgery?: Yes Depth: Organ Space
[2018-08-22] MEDS: STERILE WATER IPL SCH (15:51)
[2018-08-22] MEDS: DORNASE ALFA IPL SCH (15:51)
[2018-08-22] MEDS: NS IVP SCH (15:53)
[2018-08-22] MEDS: ALTEPLASE IVP SCH (15:53)
--- NOTE | 2018-08-22 16:22 | HOSPPROG ---
Hospitalist Progress Note Assessment/Plan: #Acute hypoxemic resp failure: empyema, COPD exacerbation. #Strep pneumonia bacteremia/empyema: Day 07/31 abx -replaced chest tube today. Case discussed with Dr. George. #Leukocytosis: pred contributing. Afebrile #HTN: stable off BP meds, continue to hold #Hyponatremia: Urine studies c/w SIADH. Fluid restrict, salt tabs #Sepsis: due to Strep bacteremia #Hypocalcemia: corrects with low albumin #COPD exacerbation: pred, nebs #DVT ppx: SCDs #Disp: inpatient admission for chest tube, IV abx Subjective: no dizziness. Mild SOB Objective: Vital Signs Temp Pulse Resp BP Pulse Ox 36.6 C 114 H 16 139/69 H 83 L 08/22/18 14:46 08/22/18 14:46 08/22/18 14:46 08/22/18 14:46 08/22/18 14:46 Laboratory Results 08/20/18 09:58 08/22/18 04:37 08/21/18 08/22/18 08/23/18 05:59 05:59 05:59 Intake Total 500 1800 100 Output Total 1825 1600 350 Balance -1325 200 -250 PT 15.0 SEC (12.0-15.0) 08/22/18 13:34 INR 1.16 (0.83-1.16) 08/22/18 13:34 - Time Spent With Patient Time Spent with Patient: greater than 35 minutes Time Spent with Patient: Greater than 35 minutes spent on this patients care, greater than 50% of time spent counseling, educating, and coordinating care regarding the above mentioned plan. - Physical Exam Constitutional: no apparent distress Eyes: PERRL Ears, Nose, Mouth, Throat: moist mucous membranes Cardiovascular: regular rate and rhythym, edema (trace ankle edema) Respiratory: reduced air movement (decreased both bases L>R) Gastrointestinal: normoactive bowel sounds Genitourinary: no bladder fullness Skin: warm Musculoskeletal: full muscle strength Neurologic: AAOx3, CN II-XII Intact ICD10 Worksheet Patient Problems: Problems Problem Status Onset COPD exacerbation Acute Pneumonia Acute Renal insufficiency Acute Sepsis Acute chronic disease [facility]/transitional care Acute
[2018-08-22] MEDS: traMADol 50 MG TAB PO PRN ×2 (16:46→19:03)
[2018-08-22] MEDS: SODIUM CHLORIDE 1,000 MG TAB PO SCH (16:46)
[2018-08-22] MEDS: MAGNESIUM HYDROXIDE 30 ML UDCUP PO PRN (17:18)
--- NOTE | 2018-08-22 17:20 | PDINTPN ---
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 # pneumonia # empyema status post 10 [place]araguan pigtail chest tube on 08/17/18, dislodged and replaced 08/20/18, dislodged and unable to replace on 08/21, replaced 08/22/18 with realtime U/S guidance. # strep pneumonia bacteremia. - repeat cultures negative # acute hypoxemic respiratory failure # AECOPD # dyspnea # sepsis PLAN # Continue IV CTX while inpatient. # Switch to levaquin or moxifloxacin on discharge # status post DNAse/TPA x 3 doses, 3rd on 08/22/18 # repeat BID TPA/DNAse administration next dose 08/23/18 at 0800. # prednisone stopped 08/20/18 # consider diuresis given increased interstitial markings # Continue supplemental oxygen # continue aggressive pulmonary toilet # daily CXR ABX CTX EVENTS 08/16/18 thora 08/17/18 L pigtail chest tube by IR 08/20/18 chest tube dislodged, replaced by IR 08/21/18 2nd chest tube dislodged and IR unable to replace chest tube 08/22/18 3rd chest tube via posterior lateral approach CX Data 08/12/18 BCx strep pna x 2 08/14/18 BCx neg 08/16/18 Pleural fluid 3+ WBC, no organisms IMAGING I reviewed interpreted radiographic imaging as well as reviewed formal radiology reads 08/21/18 CT chest with moderate left-sided effusion with partial loculation 08/21/18 chest-x-ray with interval removal of chest tube small left residual effusion 08/20/2018-interval improvement effusion, further distal migration of pigtail chest tube. No focal infiltrate Subjective: Interval placement of new left posterior lateral pigtail chest tube. Patient denies new fevers chills nausea leg swelling abdominal pain. She does complain ongoing gas cramps and flatus. I had a long discussion with patient and she has had a prior chest tube in wishes to have another if it is medically necessary and also expressed her wishes to avoid surgery if at all possible. Objective: Vital Signs Temp Pulse Resp BP Pulse Ox 36.5 C 110 H 18 137/56 H 98 08/22/18 16:00 08/22/18 16:00 08/22/18 16:00 08/22/18 16:00 08/22/18 16:00 Laboratory Results 08/20/18 09:58 08/22/18 04:37 08/21/18 08/22/18 08/23/18 05:59 05:59 05:59 Intake Total 500 1800 100 Output Total 1825 1600 350 Balance -1325 200 -250 PT 15.0 SEC (12.0-15.0) 08/22/18 13:34 INR 1.16 (0.83-1.16) 08/22/18 13:34 Physical Exam - Physical Exam General Appearance: alert, no apparent distress EENT: PERRL/EOMI, normal ENT inspection Neck: non-tender, full range of motion Respiratory: lungs clear, normal breath sounds, other (New left posterior lateral pigtail chest tube in place) Cardiac/Chest: normal peripheral pulses, regular rate, rhythm Abdomen: non-tender, soft Skin: normal color, warm/dry Neuro/Psych: no motor/sensory deficits, alert, normal mood/affect, oriented x 3 ICD10 Worksheet Patient Problems: Problems Problem Status Onset COPD exacerbation Acute Pneumonia Acute Renal insufficiency Acute Sepsis Acute chronic disease mgmt/transitional care Acute
[2018-08-22] MEDS ORDERED: oxyCODONE IR 5 MG TAB PO PRN (18:45)
[2018-08-23] MEDS: LEVOTHYROXINE 50 MCG TAB PO SCH (04:52)
--- NOTE | 2018-08-23 06:20 | GCON ---
INFECTIOUS DISEASE CONSULTATION DATE OF CONSULTATION: 08/22/2018 REFERRING PHYSICIAN: Gabe George MD REASON FOR CONSULTATION: Pneumococcal bacteremia with complicated parapneumonic effusion. HISTORY OF PRESENT ILLNESS: The patient is a 77-year-old female with a past medical history of lung cancer status post laser therapy (query [employer]) who I am asked to see in consultation for pneumoc occal bacteremia and concomitant empyema. The patient was admitted on 08/12/2018 with complaints of fever to 101 with shaking chills. This was associated with increasing cough and green sputum product ion. The patient describes prior to onset of symptoms, she had developed significant diarrhea, which was of 1 day's duration. All of her symptoms began shortly after she had traveled from [place] to [facility]. At the time of her admission, she had sepsis criteria present with evidence of pneumonia on chest x-ray. She was started on therapy with IV Solu-Medrol, ceftriaxone and azithromycin. Blood cu ltures subsequently returned with both set showing growth of Streptococcus pneumoniae, which is peters-s usceptible. She has subsequently been maintained on ceftriaxone [address] on 8 showed multifocal consolidation with most prominent findings in the right upper lobe. The patient was also noted to have a large loculated left pleural effusion. The patient underwent subsequent tho racentesis with 250 mL of pleural fluid being drained. This was noted to be complex and viscous with multiple loculations preventing complete drainage with small bore catheter. Laboratory assessment o f the pleural fluid showed a pH of 7.2, white blood cell count 626, red blood cell count 4,388 with 9 6% neutrophils and total protein 2.5 with LDH greater than 10,000 and pleural glucose less than 20. Gram stain and culture of the pleural fluid were negative. The patient was seen in surgical consulta tion with the recommendation for IR drainage; standard chest tube placement was felt to be limited by posterior location of pleural fluid with risk of diaphragmatic injury. On 08/17/2018, she underwent chest tube insertion by Interventional Radiology with placement of a 10-Romanian pigtail chest tube tonya nuñez. This tube subsequently was dislodged and replaced on 08/20/2018, and again, dislodged with i charlee to replace on 08/21/2018. Earlier today, this was repeated with successful placement of a c hest tube under ultrasound guidance. Fluid noted in the chest tube is serosanguineous in appearance. A tPA was instilled into the collection and the patient had drained approximately [address] Plans are in place to repeat use of tPA and DNAse tomorrow. Given the above findings, I am no w asked to assist in her ongoing management. PAST MEDICAL HISTORY: Lung cancer, pneumococcal bacteremia as outlined above, pleural effusion as ou tlined above, COPD PAST SURGICAL HISTORY: No pertinent surgical history other than chest tube placement. CURRENT MEDICATIONS: Ceftriaxone 2 g IV daily, Tessalon Perles as needed, Pepcid 20 mg p.o. twice da heath, Mucinex 1200 mg p.o. twice daily, Synthroid 50 mcg p.o. daily, Nicorette as needed, Advair 1 puf f twice daily, salt tablets 1000 mg p.o. twice daily. ALLERGIES: No known drug allergies. SOCIAL HISTORY: The patient is a former smoker. She drinks beer occasionally. No history of drug u se. No pets at home. She typically lives in [place]. Recent travel to [place] and [place]. FAMILY HISTORY: Sister with breast cancer, brother with prostate cancer. REVIEW OF SYSTEMS: Outside that noted in the HPI, remainder of 10-system review is unremarkable exce pt for abdominal discomfort related to gas pain. PHYSICAL EXAMINATION: VITAL SIGNS: Temperature 36.5, heart rate 110, respiratory rate 18, blood pre ssure 137/56, oxygen saturation 98% on 2 L. GENERAL: The patient is a thin female in no acute distr ess. She appears nontoxic. HEENT: There is no scleral icterus, conjunctival injection, or conjunct ival petechiae. Oropharynx shows moist mucous membranes. Dentition is in poor repair. There is no nasal discharge. There is no tenderness over the sinuses. NECK: Supple without palpable lymphadeno wu or thyromegaly. CHEST: There are decreased breath sounds at the left base. Chest tube is in place in the left chest with serosanguineous output. CARDIOVASCULAR: Tachycardic without murmurs, g allops, or rubs. ABDOMEN: Soft, mildly tender to palpation without peritoneal signs. Bowel sounds are present. No palpable organomegaly. MUSCULOSKELETAL: 1+ lower extremity edema bilaterally. SKI N: No rashes present. No stigmata of endocarditis. Skin is warm and dry to touch. NEUROLOGIC: Th e patient is alert and interacts appropriately with examiner. Cranial nerves 2-12 are grossly intact . Sensation is grossly intact. Muscle tone and bulk are normal. LYMPHATICS: No cervical or suprac lavicular nodes palpable. LABORATORY DATA: White blood cell count 21.6, hematocrit 41.2, platelets 397, serum creatinine 0.6, bilirubin 0.6, AST 29, ALT is 46, alkaline phosphatase 63, albumin 2.0. Pleural fluid from 8, showed pH 7.2, white blood cell count 626, red blood cell count 4,388, neutrophils 96%, protein 2. 5, LDH greater than 10,000, glucose less than 20. Blood cultures x2 sets on 08/12/2018 show growth o f Streptococcus pneumoniae. Respiratory pathogen panel by PCR are negative, blood cultures on 2017 show no growth. Pleural fluid aspirate shows presence of white blood cells with Gram stain bein g negative and culture being negative CT scan of the chest from 08/21/2018, is reviewed and interpret ed by me showing presence of loculated complex left pleural effusion with small right pleural effusio n and improving right upper lobe pneumonia. IMPRESSION: 1. Invasive pneumococcal disease due to pneumonia with complicated parapneumonic effusion status pos t chest tube drainage: Repeat chest tube was placed earlier today with good return of pleural fluid. The patient is currently receiving ceftriaxone, which is appropriate for her Streptococcus pneumoni ae. We will need to follow clinical and radiographic response to repeat chest tube placement to ensu re adequate drainage of pleural fluid. If this fails to resolve loculated fluid, likely to proceed w ith VATS. Discussed with patient that she will need pneumococcal vaccination, which she has not had previously. 2. Leukocytosis: Likely multifactorial including presence of infection as well as impact from corti costeroid use. RECOMMENDATIONS: 1. Agree with ceftriaxone 2 g IV daily. 2. Agree with continued chest tube drainage with monitoring over time based on chest tube output and follow up CT scan (difficult to see effusion on chest x-ray). 3. Repeat white blood cell count in a.m. to ensure leukocytosis begins to resolve. 4. Clinical findings and plan were reviewed with patient and Dr. Anne today. Thank you for this consultation. We will continue to follow the patient with you. /[id number]/MODL
--- NOTE | 2018-08-23 07:58 | HOSPPROG ---
Hospitalist Progress Note Assessment/Plan: #Acute hypoxemic resp failure: empyema, COPD exacerbation. #Strep pneumonia bacteremia/empyema: -chest tube fell out x2. Last replaced 08/22. Day 12 abx, DC on 2 week orals #Leukocytosis: much improved. Afebrile #HTN: stable off BP meds, continue to hold #Hyponatremia: Urine studies c/w SIADH. Fluid restrict, salt tabs. Low-dose lasix #Sepsis: due to Strep bacteremia #Hypocalcemia: corrects with low albumin #COPD exacerbation: pred, nebs #DVT ppx: SCDs #Disp: inpatient admission for chest tube, IV abx Subjective: pain at chest tube site Objective: Vital Signs Temp Pulse Resp BP Pulse Ox 36.5 C 108 H 18 115/63 97 08/23/18 07:33 08/23/18 07:33 08/23/18 07:33 08/23/18 07:33 08/23/18 07:33 Laboratory Results 08/23/18 04:39 08/23/18 04:39 08/22/18 08/23/18 08/24/18 05:59 05:59 05:59 Intake Total 1800 1405 Output Total 1600 1975 Balance 200 -570 PT 15.0 SEC (12.0-15.0) 08/22/18 13:34 INR 1.16 (0.83-1.16) 08/22/18 13:34 - Time Spent With Patient Time Spent with Patient: greater than 35 minutes Time Spent with Patient: Greater than 35 minutes spent on this patients care, greater than 50% of time spent counseling, educating, and coordinating care regarding the above mentioned plan. - Physical Exam Constitutional: uncomfortable Eyes: PERRL Ears, Nose, Mouth, Throat: moist mucous membranes Cardiovascular: regular rate and rhythym, edema (+ 1 ankle edema) Respiratory: no respiratory distress Gastrointestinal: normoactive bowel sounds Genitourinary: No khanna in urethra Musculoskeletal: other (left chest tube in place. ) Neurologic: CN II-XII Intact ICD10 Worksheet Patient Problems: Problems Problem Status Onset COPD exacerbation Acute Pneumonia Acute Renal insufficiency Acute Sepsis Acute chronic disease mgmt/transitional care Acute
[2018-08-23] MEDS: SODIUM CHLORIDE 1,000 MG TAB PO SCH ×2 (07:59→17:11)
[2018-08-23] MEDS: FAMOTIDINE 20 MG TAB PO SCH ×2 (08:00→21:53)
[2018-08-23] MEDS: guaiFENesin 600 MG TAB.ER PO SCH ×2 (08:00→21:53)
[2018-08-23] MEDS: BISACODYL 10 MG SUPP PR PRN (08:01)
[2018-08-23] MEDS: ALTEPLASE IVP SCH (09:14)
[2018-08-23] MEDS: NS IVP SCH (09:14)
[2018-08-23] MEDS: DORNASE ALFA IPL SCH (09:14)
[2018-08-23] MEDS: STERILE WATER IPL SCH (09:14)
[2018-08-23] MEDS: KETOROLAC 15 MG/1 ML SDV IVP PRN ×2 (09:40→21:56)
--- NOTE | 2018-08-23 09:42 | ASMTCMCOM ---
CM Note CM Note Notes: Pt had her chest tube replaced after it had come out, she is still getting IV abx. Pt is otherwise independent, anticipate once she has her tube out she will dc home w/support of son. CM available for any changes. DC Plan: Independent Date Signed: 08/23/2018 09:42 AM Electronically Signed By:Taty Fernández RN
[2018-08-23] MEDS: SENNOSIDES/DOCUSATE SODIUM TAB PO SCH ×2 (09:47→21:53)
[2018-08-23] MEDS: FLUTICASONE/SALMETER 250/50MCG DISKUS IH SCH ×2 (09:59→21:41)
--- NOTE | 2018-08-23 11:10 | PCMIDPN ---
Assessment/Plan: Invasive pneumococcal disease, bacteremia and left lower lobe pneumonia with complex parapneumonic effusion, 600cc/24hr serosang fluid from L chest out overnight. Generally improving: AF, blood cx cleared, WBC trending down --continue antibiotics for 14 days following blood culture clearance, 08/27 stop date --continue ceftriaxone 2 g IV daily. If discharge prior to 08/27 or looses IV access reasonable to complete course with levofloxacin or moxifloxacin Microbiology 08/16/18 16:28 Thoracic Fluid - Aspirate Cx (negative) 08/14/18 11:50 Blood Cx (2) neg 08/12/18 09:49 Resp PCR neg 08/12/18 09:45 Blood Cx Streptococcus Pneumoniae, ceftriaxone DARRIUS < 0.0625 Medications Ceftriaxone 2 g IV daily, # 12 Subjective: Pain associated w L chest tube, pleuritic CP w deep inspiration Objective: Vital Signs Temp Pulse Resp BP Pulse Ox 36.5 C 108 H 18 115/63 97 08/23/18 07:33 08/23/18 07:33 08/23/18 07:33 08/23/18 07:33 08/23/18 07:33 Laboratory Results 08/23/18 04:39 08/23/18 04:39 08/22/18 08/23/18 08/24/18 05:59 05:59 05:59 Intake Total 1800 1405 Output Total 1600 1975 Balance 200 -570 - Physical Exam General Appearance: alert, no apparent distress Respiratory: crackles (Left mid lung field), wheezing (Occasional), other ( Decreased breath sounds left base, chest tube in place with serosanguineous fluid), No accessory muscle use Neck: supple Cardiac/Chest: tachycardia Abdomen: normal bowel sounds, non-tender, soft Skin: No rash Neuro/Psych: alert, normal mood/affect, oriented x 3 - Time Spent With Patient Time Spent with Patient: greater than 35 minutes Time Spent with Patient: Greater than 35 minutes spent on this patients care, greater than 50% of time spent counseling, educating, and coordinating care regarding the above mentioned plan. ICD10 Worksheet Patient Problems: Problems Problem Status Onset COPD exacerbation Acute Pneumonia Acute Renal insufficiency Acute Sepsis Acute chronic disease mgmt/transitional care Acute
[2018-08-23] MEDS ORDERED: SIMETHICONE DROPS 30 ML BOTTLE PO PRN (12:08)
[2018-08-23] MEDS: LACTULOSE 20 GM/30 ML UDCUP PO PRN ×2 (12:10→17:56)
[2018-08-23] MEDS: FUROSEMIDE 20 MG TAB PO SCH ×2 (12:11→12:17)
[2018-08-23] MEDS: POLYETHYLENE GLYCOL 3350 17 GM PKT PO SCH (13:23)
--- NOTE | 2018-08-23 15:27 | PDINTPN ---
Business Reporter Progress Note Assessment/Plan: ASSESSMENT 77 yo F with COPD not on home oxygen admitted with pna, empyema and acute on chronic hypoxemic respiratory failure. # pneumonia # empyema status post 10 Citizen Of [place] pigtail chest tube on 08/17/18, dislodged and replaced 08/20/18, dislodged and unable to replace on 08/21, replaced 08/22/18 with realtime U/S guidance. Excellent and overall drainage with current tube and medical therapy # strep pneumonia bacteremia. - repeat cultures negative # acute hypoxemic respiratory failure # AECOPD # dyspnea # sepsis PLAN # Continue IV CTX while inpatient. # Switch to levaquin or moxifloxacin on discharge # status post DNAse/TPA x 3 doses, 3rd on 08/22/18 # repeat BID TPA/DNAse administration next dose 08/23/18 at 1700. # prednisone stopped 08/20/18 # consider empiric diuresis given bilateral pleural effusions and underlying diastolic dysfunction # Continue supplemental oxygen # continue aggressive pulmonary toilet # formal PA and lateral chest x-ray in a.m. ABX CTX EVENTS 08/16/18 thora 08/17/18 L pigtail chest tube by IR 08/20/18 chest tube dislodged, replaced by IR 08/21/18 2nd chest tube dislodged and IR unable to replace chest tube 08/22/18 3rd chest tube via posterior lateral approach CX Data 08/12/18 BCx strep pna x 2 08/14/18 BCx neg 08/16/18 Pleural fluid 3+ WBC, no organisms IMAGING I reviewed interpreted radiographic imaging as well as reviewed formal radiology reads 08/23/2018 interval improvement with near complete resolution of left-sided empyema 08/21/18 CT chest with moderate left-sided effusion with partial loculation 08/21/18 chest-x-ray with interval removal of chest tube small left residual effusion 08/20/2018-interval improvement effusion, further distal migration of pigtail chest tube. No focal infiltrate 08/23/18 15:25 Subjective: Excellent interval output after posterior lateral chest tube placement 2017 and 2 doses of tPA/DNase. Still with visible purulent material mixed with viscous serosanguineous fluid in tube. Patient continues to improve clinically however is still requiring some oxygen. Patient complained of mild chest tube insertion site pain as well. Denies new fevers nausea vomiting chills chest pain. Objective: Vital Signs Temp Pulse Resp BP Pulse Ox 36.6 C 115 H 18 120/68 92 08/23/18 11:40 08/23/18 13:22 08/23/18 11:40 08/23/18 11:40 08/23/18 13:22 Laboratory Results 08/23/18 04:39 08/23/18 04:39 08/22/18 08/23/18 08/24/18 05:59 05:59 05:59 Intake Total 1800 1405 Output Total 1600 1900 25 Balance 200 -495 -25 PT 15.0 SEC (12.0-15.0) 08/22/18 13:34 INR 1.16 (0.83-1.16) 08/22/18 13:34 Physical Exam - Physical Exam EENT: PERRL/EOMI, normal ENT inspection Neck: non-tender, full range of motion Respiratory: chest non-tender, lungs clear, other (Chest tube in place, tidal in purulent chunks of material within serosanguineous viscous fluid in chest tube in Pleur-evac tubing) Cardiac/Chest: normal peripheral pulses, regular rate, rhythm Abdomen: normal bowel sounds, non-tender, soft Skin: normal color, warm/dry Neuro/Psych: no motor/sensory deficits, alert, normal mood/affect, oriented x 3 , No motor weakness, No sensory deficit ICD10 Worksheet Patient Problems: Problems Problem Status Onset COPD exacerbation Acute Pneumonia Acute Renal insufficiency Acute Sepsis Acute chronic disease mgmt/transitional care Acute
[2018-08-23] MEDS ORDERED: NS IPL ONE (17:00)
[2018-08-23] MEDS ORDERED: ALTEPLASE IPL ONE (17:00)
[2018-08-23] MEDS ORDERED: STERILE WATER IPL ONE (17:00)
[2018-08-23] MEDS ORDERED: DORNASE ALFA IPL ONE (17:00)
[2018-08-23] MEDS: SIMETHICONE 80 MG TAB CHEW PO PRN (17:10)
[2018-08-23] MEDS: traMADol 50 MG TAB PO PRN (17:56)
[2018-08-24] MEDS: LEVOTHYROXINE 50 MCG TAB PO SCH (05:51)
[2018-08-24] MEDS: SODIUM CHLORIDE 1,000 MG TAB PO SCH ×3 (08:35→20:56)
[2018-08-24] MEDS: guaiFENesin 600 MG TAB.ER PO SCH ×2 (08:35→20:55)
[2018-08-24] MEDS: FAMOTIDINE 20 MG TAB PO SCH ×2 (08:39→20:55)
[2018-08-24] MEDS: FUROSEMIDE 20 MG TAB PO SCH (08:39)
--- NOTE | 2018-08-24 09:21 | HOSPPROG ---
Hospitalist Progress Note Assessment/Plan: #Acute hypoxemic resp failure: empyema, COPD exacerbation. #Strep pneumonia bacteremia/empyema: -Day 13 abx -chest tube fell out x2. Last replaced 08/22. -will complete 2 weeks Amoxicillin at DC, 1gm BID -Prevnar, refusing Influenza -Repeat CXR 2 weeks after DC #Leukocytosis: much improved. Afebrile #HTN: stable off BP meds, continue to hold #Hyponatremia: -Urine studies c/w SIADH -Fluid restrict, increase salt tabs to TID. Ensure protein drinks #Sepsis: due to Strep bacteremia #Hypocalcemia: corrects with low albumin #COPD exacerbation: pred, nebs #DVT ppx: SCDs #Disp: inpatient admission for chest tube, IV abx Daughter at bedside and questions answered. D/w Dr. Lucero and Dr. George Subjective: Pain at CT improved Objective: Vital Signs Temp Pulse Resp BP Pulse Ox 36.8 C 117 H 20 133/85 H 99 08/24/18 08:00 08/24/18 08:00 08/24/18 08:00 08/24/18 08:00 08/24/18 08:00 Laboratory Results 08/23/18 04:39 08/24/18 04:27 08/23/18 08/24/18 08/25/18 05:59 05:59 05:59 Intake Total 1405 830 Output Total 1900 415 Balance -495 415 PT 15.0 SEC (12.0-15.0) 08/22/18 13:34 INR 1.16 (0.83-1.16) 08/22/18 13:34 - Time Spent With Patient Time Spent with Patient: greater than 35 minutes Time Spent with Patient: Greater than 35 minutes spent on this patients care, greater than 50% of time spent counseling, educating, and coordinating care regarding the above mentioned plan. - Physical Exam Constitutional: no apparent distress Eyes: PERRL Ears, Nose, Mouth, Throat: moist mucous membranes, hearing normal Cardiovascular: regular rate and rhythym, edema (trace ankle edema) Respiratory: reduced air movement (Left > right base) Gastrointestinal: normoactive bowel sounds Genitourinary: no bladder fullness Musculoskeletal: full muscle strength Neurologic: AAOx3, CN II-XII Intact ICD10 Worksheet Patient Problems: Problems Problem Status Onset COPD exacerbation Acute Pneumonia Acute Renal insufficiency Acute Sepsis Acute chronic disease mgmt/transitional care Acute
[2018-08-24] MEDS: SENNOSIDES/DOCUSATE SODIUM TAB PO SCH ×2 (09:45→20:55)
[2018-08-24] MEDS: POLYETHYLENE GLYCOL 3350 17 GM PKT PO SCH (09:45)
[2018-08-24] MEDS: FLUTICASONE/SALMETER 250/50MCG DISKUS IH SCH ×2 (09:57→17:07)
[2018-08-24] MEDS ORDERED: ALTEPLASE IPL ONE (11:00)
[2018-08-24] MEDS ORDERED: STERILE WATER IPL ONE (11:00)
[2018-08-24] MEDS ORDERED: NS IPL ONE (11:00)
[2018-08-24] MEDS ORDERED: DORNASE ALFA IPL ONE (11:00)
[2018-08-24] MEDS: traMADol 50 MG TAB PO PRN ×2 (11:04→20:55)
--- NOTE | 2018-08-24 13:15 | PDINTPN ---
Mat Linker Progress Note Assessment/Plan: ASSESSMENT 77 yo F with COPD not on home oxygen admitted with pna, empyema (sandor pus in chest tube and high LDH) and acute on chronic hypoxemic respiratory failure. # pneumonia # empyema status post 10 [place] pigtail chest tube on 08/17/18, dislodged and replaced 08/20/18, dislodged and unable to replace on 08/21, replaced 08/22/18 with realtime U/S guidance. Excellent and overall drainage with current tube and medical therapy # strep pneumonia bacteremia. - repeat cultures negative # acute hypoxemic respiratory failure # AECOPD # dyspnea # sepsis PLAN # Continue IV CTX while inpatient. # status post DNAse/TPA protocol # Switch to amoxicillin 1 g PO BID on discharge to complete 30 day total abx course # follow up with Dr George with CXR PA and lateral 2 weeks after discharge # repeat BID TPA/DNAse administration next dose 08/23/18 at 1700. # prednisone stopped 08/20/18 # consider empiric diuresis given bilateral pleural effusions and underlying diastolic dysfunction # Continue supplemental oxygen # continue aggressive pulmonary toilet # formal PA and lateral chest x-ray in a.m. ABX CTX EVENTS 08/16/18 thora 08/17/18 L pigtail chest tube by IR 08/20/18 chest tube dislodged, replaced by IR 08/21/18 2nd chest tube dislodged and IR unable to replace chest tube 08/22/18 3rd chest tube via posterior lateral approach CX Data 08/12/18 BCx strep pna x 2 08/14/18 BCx neg 08/16/18 Pleural fluid 3+ WBC, no organisms IMAGING I reviewed interpreted radiographic imaging as well as reviewed formal radiology reads 08/23/2018 interval improvement with near complete resolution of left-sided empyema 08/21/18 CT chest with moderate left-sided effusion with partial loculation 08/21/18 chest-x-ray with interval removal of chest tube small left residual effusion 08/20/2018-interval improvement effusion, further distal migration of pigtail chest tube. No focal infiltrate 08/24/18 13:10 Objective: Vital Signs Temp Pulse Resp BP Pulse Ox 36.3 C 112 H 20 120/68 98 08/24/18 12:00 08/24/18 12:00 08/24/18 12:00 08/24/18 12:00 08/24/18 12:00 Laboratory Results 08/23/18 04:39 08/24/18 04:27 08/23/18 08/24/18 08/25/18 05:59 05:59 05:59 Intake Total 1405 830 600 Output Total 1900 415 100 Balance -495 415 500 PT 15.0 SEC (12.0-15.0) 08/22/18 13:34 INR 1.16 (0.83-1.16) 08/22/18 13:34 Physical Exam - Physical Exam General Appearance: alert, no apparent distress EENT: PERRL/EOMI, normal ENT inspection Neck: non-tender, full range of motion Respiratory: chest non-tender, lungs clear, other (L sided posterior lateral chest tube site c/d/i) Cardiac/Chest: normal peripheral pulses, regular rate, rhythm Abdomen: normal bowel sounds, non-tender Rectal: deferred, normal exam Back: Normal inspection Skin: normal color, warm/dry, No cyanosis Extremities: normal range of motion, non-tender Neuro/Psych: no motor/sensory deficits, alert, normal mood/affect, oriented x 3 ICD10 Worksheet Patient Problems: Problems Problem Status Onset COPD exacerbation Acute Pneumonia Acute Renal insufficiency Acute Sepsis Acute chronic disease [facility]/transitional care Acute
--- NOTE | 2018-08-24 13:47 | PCMIDPN ---
Assessment/Plan: Invasive pneumococcal disease, bacteremia and left lower lobe pneumonia with complex parapneumonic effusion, 600cc/24hr serosang fluid from L chest out overnight. Pleural fluid appeared as pus present with initial CT placement. Generally continues to improve. AF, blood cx cleared. No cbc today --reasonable to treat for total 4 weeks with pleural fluid bordering on empyema. Pulm will manage as outpatient. Planning Amoxicillin 1gm PO BID --call ID for additional questions --prevnar 13, patient refuses influenza vaccine Microbiology 08/16/18 16:28 Thoracic Fluid - Aspirate Cx (negative) 08/14/18 11:50 Blood Cx (2) neg 08/12/18 09:49 Resp PCR neg 08/12/18 09:45 Blood Cx Streptococcus Pneumoniae, ceftriaxone DARRIUS < 0.0625 Medications Ceftriaxone 2 g IV daily, # [address] Saleh, Dr. George at bedside Subjective: patient did not sleep well last night no diarrhea happy to be using amoxicillin to complete course of treatment Objective: Vital Signs Temp Pulse Resp BP Pulse Ox 36.3 C 112 H 20 120/68 98 08/24/18 12:00 08/24/18 12:00 08/24/18 12:00 08/24/18 12:00 08/24/18 12:00 Laboratory Results 08/23/18 04:39 08/24/18 04:27 08/23/18 08/24/18 08/25/18 05:59 05:59 05:59 Intake Total 1405 830 600 Output Total 1900 415 100 Balance -495 415 500 - Physical Exam General Appearance: alert, no apparent distress Respiratory: crackles (L base; CT on L with serosang fluid), No accessory muscle use Cardiac/Chest: regular rate, rhythm Abdomen: non-tender, soft Skin: pallor, No rash Neuro/Psych: alert, normal mood/affect, oriented x 3 - Time Spent With Patient Time Spent with Patient: greater than 35 minutes (reviewed plan of care and risk factors and pathogenesis of pneumococcus with patient and her daughter) Time Spent with Patient: Greater than 35 minutes spent on this patients care, greater than 50% of time spent counseling, educating, and coordinating care regarding the above mentioned plan. ICD10 Worksheet Patient Problems: Problems Problem Status Onset chronic disease mgmt/transitional care Acute COPD exacerbation Acute Pneumonia Acute Sepsis Acute Renal insufficiency Acute
[2018-08-24] MEDS ORDERED: PNEUMOC 13-VAL CONJ-DIP CRM/PF 0.5 ML SYR (PREVNAR 13) IM ONE (13:48)
[2018-08-24] MEDS: SIMETHICONE 80 MG TAB CHEW PO PRN (14:54)
[2018-08-24] MEDS ORDERED: FUROSEMIDE 20 MG/2 ML VIAL IVP ONE (16:41)
[2018-08-24] MEDS: LEVALBUTEROL 1.25 MG/3 ML DEYVIAL IH PRN (17:06)
[2018-08-25] MEDS: LEVOTHYROXINE 50 MCG TAB PO SCH (06:59)
--- NOTE | 2018-08-25 09:05 | HOSPPROG ---
Hospitalist Progress Note Assessment/Plan: #Acute hypoxemic resp failure: empyema, COPD exacerbation. #Strep pneumonia bacteremia/empyema: -CT 08/25 with residual loculation not drained by catheter. Chest tube fell out x2. Last replaced 08/22. -Day 14 abx, DC on 2 week orals #Leukocytosis: resolved #HTN: stable off BP meds, continue to hold #Hyponatremia: Urine studies c/w SIADH. Fluid restrict, salt tabs. Give Lasix dose #Sepsis: due to Strep bacteremia #Hypocalcemia: corrects with low albumin #COPD exacerbation: pred, nebs #DVT ppx: SCDs #Disp: inpatient admission for chest tube, IV abx Subjective: pain in back improved. Ate a full breakfast Objective: Vital Signs Temp Pulse Resp BP Pulse Ox 36.6 C 103 H 16 109/70 96 08/25/18 07:47 08/25/18 07:47 08/25/18 07:47 08/25/18 07:47 08/25/18 07:47 Laboratory Results 08/25/18 04:20 08/25/18 04:20 08/24/18 08/25/18 08/26/18 05:59 05:59 05:59 Intake Total 830 730 Output Total 415 640 Balance 415 90 PT 15.0 SEC (12.0-15.0) 08/22/18 13:34 INR 1.16 (0.83-1.16) 08/22/18 13:34 - Time Spent With Patient Time Spent with Patient: greater than 35 minutes Time Spent with Patient: Greater than 35 minutes spent on this patients care, greater than 50% of time spent counseling, educating, and coordinating care regarding the above mentioned plan. - Physical Exam Constitutional: no apparent distress Ears, Nose, Mouth, Throat: moist mucous membranes Cardiovascular: regular rate and rhythym, edema (trace ankle edema) Respiratory: no respiratory distress Gastrointestinal: normoactive bowel sounds Genitourinary: no bladder fullness Skin: warm Musculoskeletal: full muscle strength, other (left CT in place) Neurologic: AAOx3, CN II-XII Intact ICD10 Worksheet Patient Problems: Problems Problem Status Onset COPD exacerbation Acute Pneumonia Acute Renal insufficiency Acute Sepsis Acute chronic disease [facility]/transitional care Acute
[2018-08-25] MEDS: SODIUM CHLORIDE 1,000 MG TAB PO SCH ×3 (09:16→21:09)
[2018-08-25] MEDS: guaiFENesin 600 MG TAB.ER PO SCH ×2 (09:16→21:08)
[2018-08-25] MEDS: SENNOSIDES/DOCUSATE SODIUM TAB PO SCH ×2 (09:17→21:09)
[2018-08-25] MEDS: FAMOTIDINE 20 MG TAB PO SCH ×2 (09:17→21:09)
[2018-08-25] MEDS: POLYETHYLENE GLYCOL 3350 17 GM PKT PO SCH (09:19)
[2018-08-25] MEDS: FLUTICASONE/SALMETER 250/50MCG DISKUS IH SCH ×2 (09:47→21:18)
[2018-08-25] MEDS ORDERED: IOPAMIDOL (ISOVUE-300) 100 ML BTL ONE (09:57)
[2018-08-25] MEDS: traMADol 50 MG TAB PO PRN (11:46)
[2018-08-25] MEDS ORDERED: DORNASE ALFA IPL ONE (13:30)
[2018-08-25] MEDS ORDERED: STERILE WATER IPL ONE (13:30)
[2018-08-25] MEDS ORDERED: NS IPL ONE (13:30)
[2018-08-25] MEDS ORDERED: ALTEPLASE IPL ONE (13:30)
[2018-08-25] MEDS ORDERED: FUROSEMIDE 20 MG/2 ML VIAL IVP ONE (14:03)
--- NOTE | 2018-08-25 16:30 | PDINTPN ---
Zoology Technical Officer Progress Note Assessment/Plan: ASSESSMENT 77 yo F with COPD not on home oxygen admitted with pna, empyema (sandor pus in chest tube and high LDH) and acute on chronic hypoxemic respiratory failure. # pneumonia # empyema status post 10 [place] pigtail chest tube on 08/17/18, dislodged and replaced 08/20/18, dislodged and unable to replace on 08/21, replaced 08/22/18 with realtime U/S guidance. Excellent and overall drainage with current tube and medical therapy however still with residual fluid collection that current tube is not communicating with # strep pneumonia bacteremia. - repeat cultures negative # acute hypoxemic respiratory failure # AECOPD # dyspnea # sepsis PLAN # Patient with residual fluid collection, however given age, underlying COPD and patient's goals of care, conservative treatment with prolonged oral abx is reasonable. The residual empyema will likely fibrose down and not leave her with significant restrictive defect. However, if clinical worsening or if significant limitation in symptoms after rind matures, may ask patient to reconsider surgical management. Continue IV CTX while inpatient. # status post DNAse/TPA protocol # Switch to moxyfloxacin at discharge per ID # follow up with Dr George, , or Jazmine with CXR PA and lateral 2 weeks after discharge # repeat BID TPA/DNAse administration next dose 08/23/18 at 1700. # prednisone stopped 08/20/18 # Continue supplemental oxygen # continue aggressive pulmonary toilet # formal PA and lateral chest x-ray in a.m. ABX CTX EVENTS 08/16/18 thora 08/17/18 L pigtail chest tube by IR 08/20/18 chest tube dislodged, replaced by IR 08/21/18 2nd chest tube dislodged and IR unable to replace chest tube 08/22/18 3rd chest tube via posterior lateral approach CX Data 08/12/18 BCx strep pna x 2 08/14/18 BCx neg 08/16/18 Pleural fluid 3+ WBC, no organisms IMAGING I reviewed interpreted radiographic imaging as well as reviewed formal radiology reads 08/25/18 CT chest w inteval decrease in size but still with small posterior emyema with chest tube in place. Current tube not communicating with residual empyema. 08/23/2018 interval improvement with near complete resolution of left-sided empyema 08/21/18 CT chest with moderate left-sided effusion with partial loculation 08/21/18 chest-x-ray with interval removal of chest tube small left residual effusion 08/20/2018-interval improvement effusion, further distal migration of pigtail chest tube. No focal infiltrate 08/25/18 16:40 Subjective: Slept well, no new issues. Patient less short of breath, no fevers, chills, n/ v. She again reiterated to her desire to avoid surgery Objective: Vital Signs Temp Pulse Resp BP Pulse Ox 36.6 C 120 H 16 112/67 94 08/25/18 16:00 08/25/18 16:00 08/25/18 16:00 08/25/18 16:00 08/25/18 16:00 Laboratory Results 08/25/18 04:20 08/25/18 04:20 08/24/18 08/25/18 08/26/18 05:59 05:59 05:59 Intake Total 830 730 600 Output Total 415 640 Balance 415 90 600 PT 15.0 SEC (12.0-15.0) 08/22/18 13:34 INR 1.16 (0.83-1.16) 08/22/18 13:34 ICD10 Worksheet Patient Problems: Problems Problem Status Onset COPD exacerbation Acute Pneumonia Acute Renal insufficiency Acute Sepsis Acute chronic disease [facility]/transitional care Acute
[2018-08-26] MEDS: LEVOTHYROXINE 50 MCG TAB PO SCH (06:31)
[2018-08-26] MEDS: BISACODYL 10 MG SUPP PR PRN (06:31)
[2018-08-26] MEDS: FLUTICASONE/SALMETER 250/50MCG DISKUS IH SCH ×2 (09:24→22:38)
[2018-08-26] MEDS: FAMOTIDINE 20 MG TAB PO SCH ×2 (09:30→21:36)
[2018-08-26] MEDS: guaiFENesin 600 MG TAB.ER PO SCH ×2 (09:30→21:35)
[2018-08-26] MEDS: SENNOSIDES/DOCUSATE SODIUM TAB PO SCH ×2 (09:30→21:36)
[2018-08-26] MEDS: SODIUM CHLORIDE 1,000 MG TAB PO SCH ×3 (09:30→21:36)
[2018-08-26] MEDS: POLYETHYLENE GLYCOL 3350 17 GM PKT PO SCH (09:38)
--- NOTE | 2018-08-26 10:38 | PCMIDPN ---
Assessment/Plan: Assessment/Plan: * Invasive pneumococcal disease with complicated parapneumonic effusion/empyema status post IR guided chest tube drainage: CT performed yesterday shows smaller residual loculated collection. This findings was reviewed as well as plan of care with Dr. George yesterday. Query if this residual collection may be amenable to thoracentesis with attempt to drain dry. Based on improvement in CT and underlying comorbidities, agree reasonable to try to achieve resolution with longer course of antimicrobial therapy rather than proceeding with VATS unless she fails to resolve over time. Continue ceftriaxone daily while in hospital with plans to transition to oral moxifloxacin 400 mg daily at time of discharge. Favor moxifloxacin over levofloxacin with levofloxacin DARRIUS of 1 which previously has been reported to be more susceptible to evolution of resistance (may have 1 step of 2 step mutation already present). 08/26/18 10:35 08/26/18 13:58 Subjective: Overall patient feels better with decreased O2 saturations when off oxygen. Prior abdominal discomfort related to gas pain has decreased. Objective: Vital Signs Temp Pulse Resp BP Pulse Ox 36.6 C 112 H 18 112/65 98 08/26/18 07:52 08/26/18 07:52 08/26/18 07:52 08/26/18 07:52 08/26/18 07:52 Laboratory Results 08/25/18 04:20 08/26/18 04:47 08/25/18 08/26/18 08/27/18 05:59 05:59 05:59 Intake Total 730 600 Output Total 640 370 100 Balance 90 230 -100 Ceftriaxone # 13 CT chest 08/25/2018 with decreased loculated fluid but not fully resolved on left - Physical Exam General Appearance: alert, no apparent distress, thin EENT: No scleral icterus, No thrush Respiratory: other (Decreased breath sounds left base, serosanguineous output in chest tube) Cardiac/Chest: tachycardia Abdomen: non-tender, No distended Skin: No embolic lesions ICD10 Worksheet Patient Problems: Problems Problem Status Onset COPD exacerbation Acute Pneumonia Acute Renal insufficiency Acute Sepsis Acute chronic disease [facility]/transitional care Acute
--- NOTE | 2018-08-26 11:06 | PDINTPN ---
Automation Driver Progress Note Assessment/Plan: 77 F with COPD admitted with pneumonia and found to have complicated parapneumonic effusion/empyema who required several chest tubes (08/17, 08/20, 08/21, 08/22) before adequate drainage obtained, followed by TPA/DNAse. She has slowly recovered but CT chest 08/25 shows small residual posterior collection with inadequate communication with existing tube, which is otherwise in excellent position. * Empyema- clinical stable with falling wbc and afebrile. CT output for last 24 hours was 170- still too much to pull tube. Continue to observe for now. At time of tube removal, will use syringe in hope of draining any residual fluid. The remaining collection is small, so reasonable to exyend course of antibiotics even if I cant get more out as outlined in ID notes. * COPD exacerbation- improved without wheezing. Remains on atrovent, xopenex, advair, and O2. wean O2 as tolerated. * PNA- improved on CTX with plans to transition to moxifloxacin at ar. Subjective: feels OK, no sob, f/c/s Objective: Vital Signs Temp Pulse Resp BP Pulse Ox 36.6 C 112 H 18 112/65 98 08/26/18 07:52 08/26/18 07:52 08/26/18 07:52 08/26/18 07:52 08/26/18 07:52 Laboratory Results 08/25/18 04:20 08/26/18 04:47 08/25/18 08/26/18 08/27/18 05:59 05:59 05:59 Intake Total 730 600 Output Total 640 370 100 Balance 90 230 -100 PT 15.0 SEC (12.0-15.0) 08/22/18 13:34 INR 1.16 (0.83-1.16) 08/22/18 13:34 Physical Exam - Physical Exam General Appearance: WD/WN, alert, no apparent distress EENT: PERRL/EOMI, No scleral icterus (R), No scleral icterus (L) Neck: supple Respiratory: lungs clear, normal breath sounds, decreased breath sounds, No respiratory distress, No accessory muscle use Cardiac/Chest: regular rate, rhythm, No edema Abdomen: non-tender, soft, No distended Skin: normal color, warm/dry, No cyanosis Lymphatic: no adenopathy Extremities: No pedal edema Neuro/Psych: alert, normal mood/affect, oriented x 3 ICD10 Worksheet Patient Problems: Problems Problem Status Onset COPD exacerbation Acute Pneumonia Acute Renal insufficiency Acute Sepsis Acute chronic disease mgmt/transitional care Acute
[2018-08-26] MEDS: SIMETHICONE 80 MG TAB CHEW PO PRN (14:22)
--- NOTE | 2018-08-26 15:33 | ASMTCMCOM ---
CM Note CM Note Notes: Pt will continue on ivabx and eventually be switched to orals. The plan remains the same. Pt will d/c independent when medically stable. CM available for changes. Plan: Independent Date Signed: 08/26/2018 03:33 PM Electronically Signed By:PIYUSH Garcia
--- NOTE | 2018-08-26 16:03 | HOSPPROG ---
Hospitalist Progress Note Assessment/Plan: Acute hypoxemic resp failure: empyema, COPD exacerbation. essentially resolved at this point. Continue to monitor Strep pneumonia bacteremia/empyema- on day 15 of abx, currently on rocephin, followed by ID and pulmonology. seems to continue to have residual fluid collection that is persistent. Pulmonology suggesting that they will try and remove the remainder of the fluid when they remove the CT with a needle. ID recommending continue rocephin for now. Leukocytosis: much improved. Afebrile HTN: stable off BP meds, continue to hold Hyponatremia- continuese to improve. now up to 131. Studies consistent with SIADH. continue fluid restriction and salt tablets. Hypothyroid- on synthroid. continue Sepsis-due to Strep bacteremia, resolved. Hypocalcemia: corrects with low albumin COPD- on advair and xopenex, DVT ppx: SCDs Disp: inpatient admission for chest tube, IV abx Objective: Vital Signs Temp Pulse Resp BP Pulse Ox 36.6 C 128 H 18 121/68 H 93 08/26/18 15:56 08/26/18 15:56 08/26/18 15:56 08/26/18 15:56 08/26/18 15:56 Laboratory Results 08/25/18 04:20 08/26/18 04:47 08/25/18 08/26/18 08/27/18 05:59 05:59 05:59 Intake Total 730 600 240 Output Total 640 370 100 Balance 90 230 140 PT 15.0 SEC (12.0-15.0) 08/22/18 13:34 INR 1.16 (0.83-1.16) 08/22/18 13:34 - Physical Exam Constitutional: no apparent distress, appears nourished, not in pain Eyes: PERRL, anicteric sclera, EOMI Ears, Nose, Mouth, Throat: moist mucous membranes, hearing normal, ears appear normal, no oral mucosal ulcers Cardiovascular: regular rate and rhythym Respiratory: reduced air movement Gastrointestinal: soft, non-tender abdomen Genitourinary: no bladder fullness Skin: no rashes or abrasions, no fluctuance, no induration Neurologic: AAOx3, sensation intact bilaterally Psychiatric: interacting appropriately, not anxious, not encephalopathic, thought process linear Lymph, Heme, Immunologic: no cervical LAD, no supraclavicular LAD ICD10 Worksheet Patient Problems: Problems Problem Status Onset COPD exacerbation Acute Pneumonia Acute Renal insufficiency Acute Sepsis Acute chronic disease mgmt/transitional care Acute
[2018-08-26] MEDS: MAGNESIUM HYDROXIDE 30 ML UDCUP PO PRN (21:35)
[2018-08-27] MEDS: MAGNESIUM HYDROXIDE 30 ML UDCUP PO PRN (08:49)
[2018-08-27] MEDS: SENNOSIDES/DOCUSATE SODIUM TAB PO SCH ×2 (08:49→22:09)
[2018-08-27] MEDS: SODIUM CHLORIDE 1,000 MG TAB PO SCH ×3 (08:50→22:09)
[2018-08-27] MEDS: FAMOTIDINE 20 MG TAB PO SCH ×2 (08:50→22:08)
[2018-08-27] MEDS: guaiFENesin 600 MG TAB.ER PO SCH ×2 (08:51→22:09)
[2018-08-27] MEDS: FLUTICASONE/SALMETER 250/50MCG DISKUS IH SCH ×2 (09:18→22:08)
[2018-08-27] MEDS: LEVOTHYROXINE 50 MCG TAB PO SCH (10:41)
[2018-08-27] MEDS: POLYETHYLENE GLYCOL 3350 17 GM PKT PO SCH (11:22)
--- NOTE | 2018-08-27 11:43 | HOSPPROG ---
Hospitalist Progress Note Assessment/Plan: Acute hypoxemic resp failure: empyema, COPD exacerbation. essentially resolved at this point. Continue to monitor Strep pneumonia bacteremia/empyema- on day 16 of abx, currently on rocephin, followed by ID and pulmonology. seems to continue to have residual fluid collection that is persistent. Pulmonology with plan to remove chest tube today , and drain residual fluid. Will continue rocephin today and then discharge to complete course with avelox. Leukocytosis: much improved. Afebrile HTN: stable off BP meds, continue to hold Hyponatremia- continuese to improve. now up to 137. Studies consistent with SIADH. continue fluid restriction and salt tablets. Hypothyroid- on synthroid. continue Sepsis-due to Strep bacteremia, resolved. Hypocalcemia: corrects with low albumin COPD- on advair and xopenex, DVT ppx: SCDs Fluids- None restricting Lytes- WNL Nutrition- regular with protein supplement Cor- Full Disp: inpatient admission for chest tube, IV abx. Likely discharge home. Will coordinate with CM. Objective: Vital Signs Temp Pulse Resp BP Pulse Ox 36.6 C 115 H 18 125/79 H 91 L 08/27/18 08:00 08/27/18 08:00 08/27/18 09:18 08/27/18 08:00 08/27/18 08:00 Laboratory Results 08/25/18 04:20 08/27/18 04:22 08/26/18 08/27/18 08/28/18 05:59 05:59 05:59 Intake Total 600 1040 Output Total 370 350 Balance 230 690 PT 15.0 SEC (12.0-15.0) 08/22/18 13:34 INR 1.16 (0.83-1.16) 08/22/18 13:34 - Physical Exam Constitutional: no apparent distress, appears nourished, not in pain Eyes: PERRL, anicteric sclera, EOMI Ears, Nose, Mouth, Throat: moist mucous membranes, hearing normal, ears appear normal, no oral mucosal ulcers Cardiovascular: regular rate and rhythym, no murmur, rub, or gallop Respiratory: reduced air movement Gastrointestinal: normoactive bowel sounds, soft, non-tender abdomen, no palpable masses Genitourinary: no bladder fullness, no bladder tenderness, no renal bruits Skin: no rashes or abrasions, no fluctuance, no induration Musculoskeletal: full muscle strength, no muscle tenderness, normal joint ROM Neurologic: AAOx3, sensation intact bilaterally Psychiatric: interacting appropriately, not anxious, not encephalopathic, thought process linear Lymph, Heme, Immunologic: no cervical LAD, no supraclavicular LAD ICD10 Worksheet Patient Problems: Problems Problem Status Onset COPD exacerbation Acute Pneumonia Acute Renal insufficiency Acute Sepsis Acute chronic disease mgmt/transitional care Acute
--- NOTE | 2018-08-27 14:44 | PDINTPN ---
System Integration Engineer Progress Note Assessment/Plan: 77 F with COPD admitted with pneumonia and found to have complicated parapneumonic effusion/empyema who required several chest tubes (08/17, 08/20, 08/21, 08/22) before adequate drainage obtained, followed by TPA/DNAse. She has slowly recovered but CT chest 08/25 shows small residual posterior collection with inadequate communication with existing tube, which is otherwise in excellent position. * Empyema- remains stable. I was able to remove her chest tube today with aspiration while pulling back on her tube. I aspirated an additional 25-30 ml of purulent fluid from her chest cavity during the procedure which was tolerated well. She should still plan on the extended antiobiotics as previously described. AM CXR * COPD exacerbation- improved without wheezing. Remains on atrovent, xopenex, advair, and O2. wean O2 as tolerated. * PNA- improved on CTX with plans to transition to moxifloxacin at dc. 08/27/18 14:42 Subjective: feels well, no events Objective: Vital Signs Temp Pulse Resp BP Pulse Ox 36.8 C 112 H 20 141/71 H 97 08/27/18 12:00 08/27/18 12:00 08/27/18 12:00 08/27/18 12:00 08/27/18 12:00 Laboratory Results 08/25/18 04:20 08/27/18 04:22 08/26/18 08/27/18 08/28/18 05:59 05:59 05:59 Intake Total 600 1040 Output Total 370 350 Balance 230 690 PT 15.0 SEC (12.0-15.0) 08/22/18 13:34 INR 1.16 (0.83-1.16) 08/22/18 13:34 Physical Exam - Physical Exam General Appearance: WD/WN, alert, no apparent distress EENT: PERRL/EOMI, No scleral icterus (R), No scleral icterus (L) Neck: supple Respiratory: lungs clear, normal breath sounds, decreased breath sounds, No respiratory distress, No accessory muscle use Cardiac/Chest: regular rate, rhythm, No edema Abdomen: non-tender, soft, No distended Skin: normal color, warm/dry, No cyanosis Lymphatic: no adenopathy Extremities: No pedal edema Neuro/Psych: alert, normal mood/affect, oriented x 3 ICD10 Worksheet Patient Problems: Problems Problem Status Onset COPD exacerbation Acute Pneumonia Acute Renal insufficiency Acute Sepsis Acute chronic disease mgmt/transitional care Acute
[2018-08-28] MEDS: LEVOTHYROXINE 50 MCG TAB PO SCH (04:32)
[2018-08-28 06:14] LABS: PLATELET COUNT 358 10^3/uL (150-400)
[2018-08-28] MEDS: FAMOTIDINE 20 MG TAB PO SCH (08:29)
[2018-08-28] MEDS: guaiFENesin 600 MG TAB.ER PO SCH (08:29)
[2018-08-28] MEDS: SODIUM CHLORIDE 1,000 MG TAB PO SCH (08:29)
[2018-08-28] MEDS: POLYETHYLENE GLYCOL 3350 17 GM PKT PO SCH (08:29)
[2018-08-28] MEDS: SENNOSIDES/DOCUSATE SODIUM TAB PO SCH (08:30)
[2018-08-28] MEDS: FLUTICASONE/SALMETER 250/50MCG DISKUS IH SCH (10:31)
[2018-08-28 12:51] VITALS: BP 136/65
--- NOTE | 2018-08-28 14:06 | PCMIDPN ---
Assessment/Plan: Assessment/Plan: * Invasive pneumococcal disease with complicated parapneumonic effusion/empyema status post IR guided chest tube drainage: Chest tube removed yesterday with aspiration of approximately 25-30 mL of seropurulent fluid at time of removal by Dr. Shane. Overall has shown significant clinical improvement. Recommend transition to oral moxifloxacin 400 mg daily x2 weeks. Plan for CT scan toward end of antibiotic course to reassess chest findings. Side effects of fluoroquinolone use including tendinopathy, allergic reactions, skin rash, C difficile colitis, potential drug interactions, and need to avoid concomitant intake of polyvalent cations discussed with patient. Have arranged for follow- up in my office with me next week (appointment in discharge plan). 08/28/18 14:03 Subjective: Chest tube removed yesterday noting aspiration of some residual fluid at time of removal. Patient without significant complaints. Objective: Vital Signs Temp Pulse Resp BP Pulse Ox 36.5 C 120 H 16 136/65 H 96 08/28/18 12:00 08/28/18 12:00 08/28/18 12:00 08/28/18 12:00 08/28/18 12:00 Laboratory Results 08/28/18 04:17 08/28/18 04:17 08/27/18 08/28/18 08/29/18 05:59 05:59 05:59 Intake Total 1040 750 Output Total 350 200 250 Balance 690 550 -250 Ceftriaxone # 13 Laboratory Tests 08/28/18 04:17 Total Bilirubin 0.3 AST 35 ALT 36 Alkaline Phosphatase 72 - Physical Exam General Appearance: alert, no apparent distress EENT: No scleral icterus, No thrush Respiratory: wheezing (Left upper lung field), other (Decreased breath sounds left base) Cardiac/Chest: tachycardia - Time Spent With Patient Time Spent with Patient: greater than 25 minutes Time Spent with Patient: Greater than 25 minutes spent on this patients care, greater than 50% of time spent counseling, educating, and coordinating care regarding the above mentioned plan. ICD10 Worksheet Patient Problems: Problems Problem Status Onset COPD exacerbation Acute Pneumonia Acute Renal insufficiency Acute Sepsis Acute chronic disease [facility]/transitional care Acute
--- NOTE | 2018-08-28 14:41 | PDDCSUM ---
Discharge Summary Discharge Summary: patient is a 77 year old female admitted with PNA which was complicated by development of an empyema and strep bacteremia. she required a chest tube which fell out multiple times. she also developed hyponatremia which was due to siadh and was started on fluid restriction with good response. She was given rocephin for her empyema. Her empyema was not completely drained and remained persistent despite chest tube. Pulmonology was able to drain the residual fluid while removing the chest tube. she was eventually titrated off of oxygen and was able to ambulate with no hypxia. Infectious disease saw the patient and recommended 4 weeks of antibiotics with 14 days of avelox on the day of discharge. Infectious disease scheduled her for follow up and a repeat CT in approx 2 weeks from discharge. patient was discharged home with ID follow up and to follow up with her PCP. she was discharged in good condition. General - NA HEENT- MMM pink and acyanotic, atraumatic and normocephalic Lungs- decreased breath sounds at bases CV- RRR, No MRG Abd- Soft NT/ND. no organomegaly, no rebound or guarding, normal BS Ext- No CCE or calf pain Neuro= AAOX3, no focal deficits. CN2-12 intact Psych- appropriate responses, appears calm. Skin- no rashes Lymph- No LAD
--- NOTE | 2018-08-28 14:58 | PDHOMEO2F ---
Home Oxygen Face to Face Home Orders: I certify that a physician or a nurse practitioner or physician's assistant to the dean has had a [id number] encounter with this patient on the date of this order due to the diagnosis listed, which relates to the primary reason the patient requires home oxygen. Alternative treatments have been tried, or considered, and deemed ineffective. It is anticipated that supplemental oxygen will result in improvement with treatment. Home oxygen qualifying diagnosis: hypoxia SpO2 on room air (%): 86 Frequency of home oxygen needed: with activity Home oxygen liters per minute: 1 Home oxygen delivery device: nasal cannula Concentrator: Yes E-tanks for mobility and back up: No If ordering portable O2, is the patient mobile in the home?: Yes I certify that, based on these findings, the home oxygen is medically necessary for this patient for the following length of time. Length of time home oxygen needed: 1 month
--- NOTE | 2018-08-28 17:03 | PDINTPN ---
Quantitative Research Analyst Progress Note Assessment/Plan: 77 F with COPD admitted with pneumonia and found to have complicated parapneumonic effusion/empyema who required several chest tubes (08/17, 08/20, 08/21, 08/22) before adequate drainage obtained, followed by TPA/DNAse. She has slowly recovered but CT chest 08/25 shows small residual posterior collection with inadequate communication with existing tube, which is otherwise in excellent position. * Empyema- remains stable. I was able to remove her chest tube 08/27 with aspiration while pulling back on her tube. I aspirated an additional 25-30 ml of purulent fluid from her chest cavity during the procedure which was tolerated well. She should still plan on the extended antiobiotics as previously described. AM CXR 08/28 looks good without significant re- accumulation. She can followup with me in 4 weeks with new CXR * COPD exacerbation- improved without wheezing. Remains on atrovent, xopenex, advair, and O2. wean O2 as tolerated. * PNA- improved on CTX with plans to transition to moxifloxacin at dc. 08/27/18 14:42 08/28/18 17:02 Subjective: anxious for dc home. no complaints Objective: Vital Signs Temp Pulse Resp BP Pulse Ox 36.5 C 120 H 16 136/65 H 96 08/28/18 12:00 08/28/18 12:00 08/28/18 12:00 08/28/18 12:00 08/28/18 12:00 Laboratory Results 08/28/18 04:17 08/28/18 04:17 08/27/18 08/28/18 08/29/18 05:59 05:59 05:59 Intake Total 1040 750 Output Total 350 200 250 Balance 690 550 -250 PT 15.0 SEC (12.0-15.0) 08/22/18 13:34 INR 1.16 (0.83-1.16) 08/22/18 13:34 Physical Exam - Physical Exam General Appearance: WD/WN, alert, no apparent distress EENT: PERRL/EOMI, No scleral icterus (R), No scleral icterus (L) Neck: supple Respiratory: lungs clear, normal breath sounds, No respiratory distress, No accessory muscle use, No decreased breath sounds Cardiac/Chest: regular rate, rhythm, No edema Abdomen: non-tender, soft, No distended Skin: normal color, warm/dry, No cyanosis Lymphatic: no adenopathy Extremities: No pedal edema Neuro/Psych: alert, normal mood/affect, oriented x 3 ICD10 Worksheet Patient Problems: Problems Problem Status Onset COPD exacerbation Acute Pneumonia Acute Renal insufficiency Acute Sepsis Acute chronic disease mgmt/transitional care Acute
[2018-08-29] MEDS ORDERED: MOXIFLOXACIN 400 MG TAB PO SCH (09:00)
--- NOTE | 2018-09-02 13:27 | PQFORM ---
PHYSICIAN QUERY FORM Needs Your Response This query form is being sent to you to assure this patient record is coded properly. Please respond to the question below: PERFORMANCE IMPROVEMENT CONSULTANT QUESTION: Dear Dr. Keene, On your progress note of 08/26 you document this patient had sepsis due to strep pneumonia bacteremia, resolved. According to the history and physical, the patient was admitted with sepsis secondary to pneumonia. The patient clinical finding include tachypnea, tachycardia and elevated lactate. She was given antibiotics with resolution of sepsis. Can the diagnosis of sepsis due to strep pneumoniae pneumonia be added as a diagnosis to the discharge summary? ____X___ Yes No Other Unknown Thank you for clarifying, JIA Quiñonez HIM Coding INSTRUCTIONS FOR RESPONSE: Answer question by clicking on the "Edit Document" button. Move cursor to area below the stars. When complete, hit "Save." Click on the "Sign" button, then click "Sign" again. Type in your PIN and hit "Enter." MTDD
--- NOTE | 2018-09-02 13:37 | PQFORM ---
PHYSICIAN QUERY FORM Needs Your Response This query form is being sent to you to assure this patient record is coded properly. Please respond to the question below: RAW SAMPLER QUESTION: Dear Dr. Keene, On your 08/26 progress note, you document 'acute hypoxemic respiratory failure: empyema, COPD exacerbation essentially resolved at this point'. The patient was treated with systemic and inhaled steroids. Based on the clinical findings and your professional judgment, can the diagnoses of acute hypoxemic respiratory failure and COPD exacerbation be added as diagnoses on the discharge summary? __X yes no other unknown Thank you for clarifying, JIA Quiñonez HIM Coding INSTRUCTIONS FOR RESPONSE: Answer question by clicking on the "Edit Document" button. Move cursor to area below the stars. When complete, hit "Save." Click on the "Sign" button, then click "Sign" again. Type in your PIN and hit "Enter." MTDD
== END 2018-08-28 17:00 | disposition home or self-care (01) | DRG 871 ==
LOC: CED 09:21 → CEDHOLD 10:34 → F2N 12:36 → F3E 08-15 13:58
PROVIDERS: ADMIT Hospitalist; ATTEND Internal Medicine
DX: A40.3 Sepsis due to Streptococcus pneumoniae (principal); J44.0 Chronic obstructive pulmonary disease with (acute) lower respiratory infection; J13 Pneumonia due to Streptococcus pneumoniae; J86.9 Pyothorax without fistula; J44.1 Chronic obstructive pulmonary disease with (acute) exacerbation; J96.01 Acute respiratory failure with hypoxia; E22.2 Syndrome of inappropriate secretion of antidiuretic hormone; Z79.51 Long term (current) use of inhaled steroids; I10 Essential (primary) hypertension; E03.9 Hypothyroidism, unspecified; E83.51 Hypocalcemia; Z87.891 Personal history of nicotine dependence; Z85.118 Personal history of other malignant neoplasm of bronchus and lung; Z23 Encounter for immunization
CPT/HCPCS: 71046-PO; 80048-PO; 83605-PO; 84484-ER; 96365; 97116-GP; 97161-GP; 97166-GO; 97530-GO; 97535-GO; C1769; G0009; G8978-GP-CI; G8978-GP-CJ; G8979-GP-CI; G8987-GO-CI; G8987-GO-CJ; G8988-GO-CI; G8989-GO-CI; J0456; J0696; J1650; J1885; J1940; J2250; J2310; J2930; J2997; J3010; J7512; J7613; J7639; Q9967

== ENCOUNTER → 2018-09-11 | Outpatient (CLI) | payer OTHER, MEDICARE | LOC: CIMAGING 08:56 | PROVIDERS: ATTEND Internal Medicine Infectious Disease | DX: J86.9 Pyothorax without fistula (principal); R78.81 Bacteremia; R91.8 Other nonspecific abnormal finding of lung field; J43.9 Emphysema, unspecified | CPT/HCPCS: 71250-PO ==

== ENCOUNTER 2018-09-21 10:44 | Inpatient (IN) | payer OTHER, MEDICARE ==
[2018-09-21] MEDS ORDERED: NS 1,000 ML IV ONE ×2 (11:22→13:52)
[2018-09-21] MEDS ORDERED: fentaNYL 100 MCG/2 ML INJ IVP ONE (11:22)
--- NOTE | 2018-09-21 11:26 | EDPHY ---
H & P Time Seen by Provider: 09/21/18 11:15 HPI/ROS: CHIEF COMPLAINT: Abdominal pain, diarrhea HISTORY OF PRESENT ILLNESS: The patient is a 77-year-old female who presents emergency department with ongoing diarrhea and diffuse abdominal pain. Patient was admitted to the hospital on 08/12/2018 and discharged 08/28/2018 for pneumonia that subsequently became an empyema. The patient required antibiotic treatment and chest tube placement. Patient has been followed by Infectious Disease. The patient has had diarrhea since her discharge. It is slightly worsened. It is not bloody. For the last few days she has developed diffuse abdominal pain. It does not radiate."It is not appendicitis because it is not in one spot." The patient denies fevers or chills. REVIEW OF SYSTEMS: 10 systems were reveiwed and are negative with the exception of the elements mentioned in the history of present illness. Past Medical/Surgical History: Includes pneumonia, empyema, hypertension, asthma, hypothyroidism, lung cancer, pneumothorax Past surgical history: Includes lung surgery Social history: Patient does not smoke Smoking Status: Former smoker Physical Exam: 36.7, 87/63, 158, 20, 90% on room air GENERAL: No acute distress, alert. Thin. HEENT: Eyes normal to inspection, normal pharynx, no signs of dehydration. NECK: Normal, supple. RESPIRATORY: Clear to auscultation bilaterally, no rales, rhonchi or wheezing. CVS: Tachycardia with regular rhythm, no rubs, murmurs, or gallops. ABDOMEN: Soft, nontender, nondistended, no organomegaly. BACK: Normal to inspection, no CVA tenderness. SKIN: Normal color, no rash, warm, dry. No pallor. EXTREMITIES: No pedal edema, no calf tenderness, no Homans sign or cords, no joint swelling. NEURO/PSYCH: Alert and oriented, normal mood and affect, normal motor sensory exam. No obvious cranial nerve deficit. Constitutional: Initial Vital Signs Temperature (C) 36.7 C 09/21/18 10:56 Heart Rate 158 H 09/21/18 10:56 Respiratory Rate 20 09/21/18 10:56 Blood Pressure 87/63 L 09/21/18 10:56 O2 Sat (%) 90 L 09/21/18 10:56 O2 Delivery Mode Room Air Allergies/Adverse Reactions: No Known Allergies Allergy (Verified 09/21/18 10:54) Home Medications: Medication Instructions Recorded Albuterol [Proventil Neb] 3 ml IH QID PRN 08/12/18 Ascorbic Acid [Vitamin C 500 mg 500 mg PO DAILY 08/12/18 (*)] Cyanocobalamin [Vitamin B12 (*)] 1,000 mcg PO DAILY 08/12/18 Levothyroxine [Synthroid 50 mcg 50 mcg PO DAILY06 08/12/18 (*)] Nicotine Polacrilex [Nicorette gum 2 mg BC PRN PRN 09/21/18 (*)] Medical Decision Making ED Course/Re-evaluation: In the emergency department I discussed possible etiologies with the patient. I answered all her questions. An IV was placed. Laboratory studies were obtained including blood cultures and lactic acid. Patient had a chest x-ray to evaluate her previous empyema. CT of the abdomen pelvis was ordered due to her abdominal pain. Patient consented to the studies. [place] [id number]. The patient's lactate level was elevated a 4. Severe sepsis was declared. The patient was given fluid resuscitation. Repeat lactic acid was ordered. I am still waiting for CT results as well as stool results. It is unclear the exact etiology of the patient's infection. Because the patient recently had empyema pneumonia and there is concern for possible C diff the patient was given combination antibiotics including Rocephin and vancomycin. I discussed case with Dr. Soy Cantu within the patient to the emergency department. EKG: Sinus tachycardia 132. Premature atrial complex. Normal axis. Normal intervals. No ST or T-wave abnormality. Flu screen was negative. Repeat lactic acid was improved at 2.3. I discussed case with the hospitalist service. They accepted the patient. I discussed the results with the patient. I answered all her questions. 13 50: CT of the abdomen pelvis: The patient has a pancolitis. No perforation. No obstruction. Differential Diagnosis: My differential includes but is not limited to bacteremia, sepsis, pneumonia, empyema, bronchitis, viral enteritis, C diff, dehydration, electrolyte abnormality, sugar abnormality Critical Care Time: Patient required 35 min of critical care time. This was exclusive of any unbundled procedure. This was due the patient's abnormal vital signs, severe sepsis, time spent at the bedside, consultation with hospitalist service and chart review. - Data Points Laboratory Results: Laboratory Results 09/21/18 11:20 09/21/18 11:20 09/21/18 09/21/18 09/21/18 11:53 11:20 11:20 WBC RBC Hgb Hct MCV MCH MCHC RDW Plt Count MPV Neut % (Auto) Lymph % (Auto) [place] % (Auto) Eos % (Auto) Baso % (Auto) Nucleat RBC Rel Count Absolute Neuts (auto) Absolute Lymphs (auto) Absolute Monos (auto) Absolute Eos (auto) Absolute Basos (auto) Absolute Nucleated RBC Immature Gran % Seg Neutrophils % Band Neutrophils % Lymphocytes % Monocytes % Eosinophils % Basophils % Metamyelocytes % Myelocytes % Promyelocytes % Blast Cells % Immature Gran # Absolute Seg Neuts Absolute Band Neuts Absolute Lymphocytes Absolute Monocytes Absolute Eosinophils Absolute Basophils Absolute Metamyelocyte Absolute Myelocytes Absolute Promyelocytes Absolute Plasma Cells Nucleated RBCs Absolute Blast Cells Plasma Cells % Platelet Estimate Polychromasia Oval Macrocytes Echinocytes Smear Review By PT INR APTT VBG Lactic Acid 4.1 mmol/L H mmol/L (0.7-2.1) Sodium 134 mEq/L L mEq/L (135-145) Potassium 4.0 mEq/L mEq/L (3.5-5.2) Chloride 100 mEq/L mEq/L (97-110) Carbon Dioxide 23 mEq/l mEq/l (22-31) Anion Gap 11 mEq/L mEq/L (6-14) BUN 21 mg/dL mg/dL (7-23) Creatinine 1.1 mg/dL H mg/dL (0.6-1.0) Estimated GFR 48 Glucose 162 mg/dL H mg/dL (70-100) Calcium 8.5 mg/dL mg/dL (8.5-10.4) Total Bilirubin 0.9 mg/dL mg/dL (0.1-1.4) Conjugated Bilirubin 0.5 mg/dL mg/dL (0.0-0.5) Unconjugated Bilirubin 0.4 mg/dL mg/dL (0.0-1.1) AST 20 IU/L IU/L (14-46) ALT 14 IU/L IU/L (9-52) Alkaline Phosphatase 138 IU/L H IU/L (38-126) Total Protein 5.6 g/dL L g/dL (6.3-8.2) Albumin 2.8 g/dL L g/dL (3.5-5.0) Lipase 18 IU/L L IU/L (23-300) Nasal Influenza A PCR NEGATIVE FOR FLU A (NEGATIVE) Nasal Influenza B PCR NEGATIVE FOR FLU B (NEGATIVE) C. difficile Tox (PCR) TNP 09/21/18 09/21/18 11:20 11:20 WBC 43.99 10^3/uL H 10^3/uL (3.80-9.50) RBC 3.97 10^6/uL L 10^6/uL (4.18-5.33) Hgb 11.9 g/dL L g/dL (12.6-16.3) Hct 36.3 % L % (38.0-47.0) MCV 91.4 fL fL (81.5-99.8) MCH 30.0 pg pg (27.9-34.1) MCHC 32.8 g/dL g/dL (32.4-36.7) RDW 14.2 % % (11.5-15.2) Plt Count 442 10^3/uL H 10^3/uL (150-400) MPV 9.8 fL fL (8.7-11.7) Neut % (Auto) Not Reported Lymph % (Auto) Not Reported [place] % (Auto) Not Reported Eos % (Auto) Not Reported Baso % (Auto) Not Reported Nucleat RBC Rel Count Not Reported Absolute Neuts (auto) Not Reported Absolute Lymphs (auto) Not Reported Absolute Monos (auto) Not Reported Absolute Eos (auto) Not Reported Absolute Basos (auto) Not Reported Absolute Nucleated RBC Not Reported Immature Gran % Not Reported Seg Neutrophils % 79.2 % % Band Neutrophils % 17.8 % % Lymphocytes % 2.0 % % Monocytes % 1.0 % % Eosinophils % 0.0 % % Basophils % 0.0 % % Metamyelocytes % 0.0 % % Myelocytes % 0.0 % % Promyelocytes % 0.0 % % Blast Cells % 0.0 % % Immature Gran # Not Reported Absolute Seg Neuts 34.84 10^3/uL H 10^3/uL (1.70-6.50) Absolute Band Neuts 7.83 10^3/uL H 10^3/uL (0.00-0.70) Absolute Lymphocytes 0.88 10^3/uL L 10^3/uL (1.00-3.00) Absolute Monocytes 0.44 10^3/uL 10^3/uL (0.30-0.80) Absolute Eosinophils 0.00 10^3/uL L 10^3/uL (0.03-0.40) Absolute Basophils 0.00 10^3/uL L 10^3/uL (0.02-0.10) Absolute Metamyelocyte 0.00 10^3/mL 10^3/mL (0.00-0.00) Absolute Myelocytes 0.00 10^3/mL 10^3/mL (0.00-0.00) Absolute Promyelocytes 0.00 10^3/uL 10^3/uL (0.00-0.00) Absolute Plasma Cells 0.00 10^3/uL 10^3/uL (0.00-0.00) Nucleated RBCs 0 /100 WBC /100 WBC (0-0) Absolute Blast Cells 0.00 10^3/uL 10^3/uL (0.00-0.00) Plasma Cells % 0.0 % % Platelet Estimate INCREASED H (ADEQ) Polychromasia 1+ H Oval Macrocytes 1+ H Echinocytes 1+ H Smear Review By Pending PT 17.6 SEC H SEC (12.0-15.0) INR 1.43 H (0.83-1.16) APTT 30.4 SEC SEC (23.0-38.0) VBG Lactic Acid Sodium Potassium Chloride Carbon Dioxide Anion Gap BUN Creatinine Estimated GFR Glucose Calcium Total Bilirubin Conjugated Bilirubin Unconjugated Bilirubin AST ALT Alkaline Phosphatase Total Protein Albumin Lipase Nasal Influenza A PCR Nasal Influenza B PCR C. difficile Tox (PCR) Medications Given: Sodium Chloride (Ns) 1,800 mls @ 300 mls/hr 30 ml/kg infuse over 6 hr (1800 ml ) IV EDNOW ONE PRN Reason: Protocol Stop: 09/21/18 17:47 Last Admin: 09/21/18 12:10 Dose: 1,800 mls Discontinued Medications Fentanyl (Sublimaze) 25 mcg IVP EDNOW ONE Stop: 09/21/18 11:23 Last Admin: 09/21/18 11:51 Dose: Not Given Sodium Chloride (Ns) 1,000 mls @ 0 mls/hr IV EDNOW ONE; Giselle Open PRN Reason: Protocol Stop: 09/21/18 11:23 Last Admin: 09/21/18 11:50 Dose: 1,000 mls Ceftriaxone Sodium/Dextrose (Rocephin 1 Gm (Premix)) 50 mls @ 100 mls/hr IV EDNOW ONE PRN Reason: Protocol Stop: 09/21/18 12:33 Last Admin: 09/21/18 12:44 Dose: 50 mls Vancomycin HCl (Vancocin Oral Liquid) 125 mg PO EDNOW ONE PRN Reason: Protocol Stop: 09/21/18 12:20 Last Admin: 09/21/18 13:21 Dose: 125 mg Departure - Departure Disposition: [facility] Inpatient Acute Clinical Impression: Abdominal pain Qualifiers: Abdominal location: generalized Qualified Code(s): R10.84 - Generalized abdominal pain Diarrhea Qualifiers: Diarrhea type: unspecified type Qualified Code(s): R19.7 - Diarrhea, unspecified Condition: Good
[2018-09-21 11:39] LABS: PLATELET COUNT 442 10^3/uL (150-400)
[2018-09-21] MEDS ORDERED: NS 1,800 ML IV ONE (11:48)
[2018-09-21 11:54] LABS: INR 1.43 (0.83-1.16); PROTIME(PATIENT) 17.6 SEC (12.0-15.0)
[2018-09-21] MEDS ORDERED: IOPAMIDOL (ISOVUE-300) 100 ML BTL ONE (12:01)
[2018-09-21] MEDS ORDERED: VANCOMYCIN HCL/NORMAL SALINE 250 ML IV ONE (12:03)
[2018-09-21] MEDS ORDERED: VANCOMYCIN 125 MG/2.5 ML UDL PO ONE (12:19)
[2018-09-21] MEDS ORDERED: ACETAMINOPHEN 325 MG TAB PO PRN (13:52)
[2018-09-21] MEDS ORDERED: HYDROmorphONE/DILAUDID 1 MG/ML INJ IVP PRN (13:52)
[2018-09-21] MEDS ORDERED: ONDANSETRON 4 MG/2 ML VIAL IVP PRN (13:52)
[2018-09-21] MEDS ORDERED: oxyCODONE IR 5 MG TAB PO PRN (13:52)
[2018-09-21] MEDS ORDERED: ONDANSETRON DISINTEGRATING 4 MG TAB PO PRN (13:52)
[2018-09-21] MEDS ORDERED: PROMETHAZINE HCL 25 MG/ML INJ IVP PRN (13:52)
[2018-09-21] MEDS ORDERED: HYDROCODONE/APAP 5/325 TAB PO PRN (13:52)
[2018-09-21] MEDS ORDERED: NICOTINE POLACRILEX 2 MG GUM B PRN (13:58)
[2018-09-21] MEDS ORDERED: ALBUTEROL 3 ML DEYVIAL IH PRN (13:58)
--- NOTE | 2018-09-21 14:34 | CPEKG ---
Test Reason : OPEN Blood Pressure : / mmHG Vent. Rate : 132 BPM Atrial Rate : 130 BPM P-R Int : 135 ms QRS Dur : 073 ms QT Int : 302 ms P-R-T Axes : 085 078 075 degrees QTc Int : 448 ms Sinus tachycardia Atrial premature complexes Probable left atrial enlargement Anteroseptal infarct, old Confirmed by Manju Chakraborty ([id number] on 09/21/2018 2:33:38 PM Referred By: Confirmed By:Manju Chakraborty
--- NOTE | 2018-09-21 14:49 | PCMIDPN ---
Assessment/Plan: Assessment: C diff colitis-patient admitted in August with invasive streptococcal disease and treated with antibiotics including Avelox. Patient finished antibiotics around August. Repeat CT scan showed significant improvement. However the patient over the last 10 days has developed worsening liquid diarrhea. She called the answering service earlier today and I discussed the condition on the phone with her daughter. Given her reported symptoms I asked for her to report to the emergency room. Evaluation in the emergency room reveals significant leukocytosis greater than 40,000. CT scan revealed peters colitis. Will start on vancomycin 125 mg p.o. 4 times a day. Subjective evaluation revealed the patient to be nontoxic. Plan: 1. Admission to the hospital. 2. Vancomycin 125 mg p.o. 4 times a day. 3. Hydration with IV fluids. 4. Follow clinical course. Subjective: Patient states that she feels fairly good when she is lying down but that she feels worse when she sits up or stands up. Admits to numerous liquid stools a day. Mild abdominal pain. Objective: Vital Signs Temp Pulse Resp BP Pulse Ox 37.5 C 121 H 18 106/58 L 100 09/21/18 12:47 09/21/18 12:47 09/21/18 12:47 09/21/18 12:47 09/21/18 12:47 - Physical Exam General Appearance: WD/WN, alert, no apparent distress, thin, non-toxic Respiratory: lungs clear, normal breath sounds, No respiratory distress Cardiac/Chest: regular rate, rhythm, tachycardia Abdomen: non-tender, soft Skin: normal color, warm/dry, No rash Neuro/Psych: alert, normal mood/affect, oriented x 3 ICD10 Worksheet Patient Problems: Problems Problem Status Onset Abdominal pain Acute Diarrhea Acute COPD exacerbation Acute Pneumonia Acute Renal insufficiency Acute Sepsis Acute chronic disease [facility]itional care Acute
--- NOTE | 2018-09-21 16:16 | PDGENHP ---
History and Physical - Chief Complaint diarrhea - History of Present Illness 77 yo F with hx of recent pneumonia complicated by empyema and strep bacteremia for which she was treated with 2 weeks of ceftriaxone followed by another planned two weeks of moxifloxacin (however she notes she quit after 10 days because she felt she was having side effects). She was discharged from the hospital on08/28 and states that nearly since then she has been having profound diarrhea--she essentially will have to go every time she eats and has been incontinent of stool as well frequently. He has not been eating much due to the diarrhea. She has associated abdominal cramping and pain that is diffuse and located in the periumbilical area on both sides without radiation. Eating and BMs make the pain worse, as does moving. She denies fevers or chills, she has not had any worsening respiratory issues. She continues to use oxygen at night and during the day only if she is exerting herself like doing housework or other things. History Information - Allergies/Home Medication List Allergies/Adverse Reactions: No Known Allergies Allergy (Verified 09/21/18 10:54) Home Medications: Albuterol [Proventil Neb] 3 ml IH QID PRN 08/12/18 [Last Taken 09/20/18] Ascorbic Acid [Vitamin C 500 mg (*)] 500 mg PO DAILY 08/12/18 [Last Taken ] Cyanocobalamin [Vitamin B12 (*)] 1,000 mcg PO DAILY 08/12/18 [Last Taken ] Levothyroxine [Synthroid 50 mcg (*)] 50 mcg PO DAILY06 08/12/18 [Last Taken 02/02] Nicotine Polacrilex [Nicorette gum (*)] 2 mg BC PRN PRN 09/21/18 [Last Taken Unknown] I have personally reviewed and updated: family history, medical history, social history, surgical history - Past Medical History cancer (lung), COPD Additional medical history: hypothyroidism. lung cancer. empyema and strep bacteremia - Surgical History Additional surgical history: laser surgery on lungs for lung cancer - Family History Positive for: cancer Additional family history: dad from pancreatic cancer. sister with breast cancer. brother prostate cancer - Social History Smoking Status: Former smoker (quit about 7 months ago) Alcohol Use: None Drug Use: None Additional social history: Lives alone, independent Review of Systems Review of Systems: ROS: 10pt was reviewed & negative except for what was stated in HPI & below Physical Exam Physical Exam: Temp Pulse Resp BP Pulse Ox 37.5 C 121 H 18 106/58 L 100 09/21/18 12:47 09/21/18 12:47 09/21/18 12:47 09/21/18 12:47 09/21/18 12:47 O2 (L/minute) 2 Constitutional: no apparent distress, chronically ill appearing Eyes: PERRL, anicteric sclera Ears, Nose, Mouth, Throat: moist mucous membranes, hearing normal Cardiovascular: no murmur, rub, or gallop, tachycardia, No edema Respiratory: no respiratory distress, reduced air movement, inspiratory crackles Gastrointestinal: normoactive bowel sounds, tenderness, No guarding, No rebound Genitourinary: no bladder tenderness Skin: warm, normal color Musculoskeletal: full muscle strength Neurologic: AAOx3 Psychiatric: interacting appropriately, not anxious, not encephalopathic Lab Data & Imaging Review 09/21/18 11:20 09/21/18 11:20 WBC 43.99 10^3/uL (3.80-9.50) H 09/21/18 11:20 RBC 3.97 10^6/uL (4.18-5.33) L 09/21/18 11:20 Hgb 11.9 g/dL (12.6-16.3) L 09/21/18 11:20 Hct 36.3 % (38.0-47.0) L 09/21/18 11:20 MCV 91.4 fL (81.5-99.8) 09/21/18 11:20 MCH 30.0 pg (27.9-34.1) 09/21/18 11:20 MCHC 32.8 g/dL (32.4-36.7) 09/21/18 11:20 RDW 14.2 % (11.5-15.2) 09/21/18 11:20 Plt Count 442 10^3/uL (150-400) H 09/21/18 11:20 MPV 9.8 fL (8.7-11.7) 09/21/18 11:20 Neut % (Auto) Not Reported 09/21/18 11:20 Lymph % (Auto) Not Reported 09/21/18 11:20 Andrews % (Auto) Not Reported 09/21/18 11:20 Eos % (Auto) Not Reported 09/21/18 11:20 Baso % (Auto) Not Reported 09/21/18 11:20 Nucleat RBC Rel Count Not Reported 09/21/18 11:20 Absolute Neuts (auto) Not Reported 09/21/18 11:20 Absolute Lymphs (auto) Not Reported 09/21/18 11:20 Absolute Monos (auto) Not Reported 09/21/18 11:20 Absolute Eos (auto) Not Reported 09/21/18 11:20 Absolute Basos (auto) Not Reported 09/21/18 11:20 Absolute Nucleated RBC Not Reported 09/21/18 11:20 Immature Gran % Not Reported 09/21/18 11:20 Seg Neutrophils % 79.2 % 09/21/18 11:20 Band Neutrophils % 17.8 % 09/21/18 11:20 Lymphocytes % 2.0 % 09/21/18 11:20 Monocytes % 1.0 % 09/21/18 11:20 Eosinophils % 0.0 % 09/21/18 11:20 Basophils % 0.0 % 09/21/18 11:20 Metamyelocytes % 0.0 % 09/21/18 11:20 Myelocytes % 0.0 % 09/21/18 11:20 Promyelocytes % 0.0 % 09/21/18 11:20 Blast Cells % 0.0 % 09/21/18 11:20 Immature Gran # Not Reported 09/21/18 11:20 Absolute Seg Neuts 34.84 10^3/uL (1.70-6.50) H 09/21/18 11:20 Absolute Band Neuts 7.83 10^3/uL (0.00-0.70) H 09/21/18 11:20 Absolute Lymphocytes 0.88 10^3/uL (1.00-3.00) L 09/21/18 11:20 Absolute Monocytes 0.44 10^3/uL (0.30-0.80) 09/21/18 11:20 Absolute Eosinophils 0.00 10^3/uL (0.03-0.40) L 09/21/18 11:20 Absolute Basophils 0.00 10^3/uL (0.02-0.10) L 09/21/18 11:20 Absolute Metamyelocyte 0.00 10^3/mL (0.00-0.00) 09/21/18 11:20 Absolute Myelocytes 0.00 10^3/mL (0.00-0.00) 09/21/18 11:20 Absolute Promyelocytes 0.00 10^3/uL (0.00-0.00) 09/21/18 11:20 Absolute Plasma Cells 0.00 10^3/uL (0.00-0.00) 09/21/18 11:20 Nucleated RBCs 0 /100 WBC (0-0) 09/21/18 11:20 Absolute Blast Cells 0.00 10^3/uL (0.00-0.00) 09/21/18 11:20 Plasma Cells % 0.0 % 09/21/18 11:20 Platelet Estimate INCREASED (ADEQ) H 09/21/18 11:20 Polychromasia 1+ H 09/21/18 11:20 Oval Macrocytes 1+ H 09/21/18 11:20 Echinocytes 1+ H 09/21/18 11:20 PT 17.6 SEC (12.0-15.0) H 09/21/18 11:20 INR 1.43 (0.83-1.16) H 09/21/18 11:20 APTT 30.4 SEC (23.0-38.0) 09/21/18 11:20 VBG Lactic Acid 2.3 mmol/L (0.7-2.1) H 09/21/18 12:50 Sodium 134 mEq/L (135-145) L 09/21/18 11:20 Potassium 4.0 mEq/L (3.5-5.2) 09/21/18 11:20 Chloride 100 mEq/L (97-110) 09/21/18 11:20 Carbon Dioxide 23 mEq/l (22-31) 09/21/18 11:20 Anion Gap 11 mEq/L (6-14) 09/21/18 11:20 BUN 21 mg/dL (7-23) 09/21/18 11:20 Creatinine 1.1 mg/dL (0.6-1.0) H 09/21/18 11:20 Estimated GFR 48 09/21/18 11:20 Glucose 162 mg/dL (70-100) H 09/21/18 11:20 Calcium 8.5 mg/dL (8.5-10.4) 09/21/18 11:20 Total Bilirubin 0.9 mg/dL (0.1-1.4) 09/21/18 11:20 Conjugated Bilirubin 0.5 mg/dL (0.0-0.5) 09/21/18 11:20 Unconjugated Bilirubin 0.4 mg/dL (0.0-1.1) 09/21/18 11:20 AST 20 IU/L (14-46) 09/21/18 11:20 ALT 14 IU/L (9-52) 09/21/18 11:20 Alkaline Phosphatase 138 IU/L (38-126) H 09/21/18 11:20 POC Troponin I 0.05 ng/mL (0.00-0.08) 09/21/18 11:30 Total Protein 5.6 g/dL (6.3-8.2) L 09/21/18 11:20 Albumin 2.8 g/dL (3.5-5.0) L 09/21/18 11:20 Lipase 18 IU/L (23-300) L 09/21/18 11:20 Nasal Influenza A PCR NEGATIVE FOR FLU A (NEGATIVE) 09/21/18 11:53 Nasal Influenza B PCR NEGATIVE FOR FLU B (NEGATIVE) 09/21/18 11:53 C. difficile Tox (PCR) TNP 09/21/18 11:53 Visualized and Interpreted Chest x-ray results: Yes Chest X-Ray results: effusion (small), other (improved from prior) Visualized and Interpreted imaging results: Yes Interpretation: abd CT: showing peters-colitis c/w c diff Visualized and Interpreted EKG results: Yes EKG additional interpertation: sinus tachycardia Assessment & Plan Assessment: Abdominal pain (Acute) Diarrhea (Acute) 77 yo F with recent dx of PNA/empyema/strep bacteremia with prolonged abx use presenting with sepsis/diarrhea # diarrhea/peters colitis: presumably c diff with wbc of > 40k and hx of recent prolonged abx use, started on oral vanco, gi pathogen panel pending # severe sepsis: in the settting of above, meeting criteria with leukocytosis and tachycardia however patient is HD stable and thus far BP has been fluid responsive, will admit to SDU where she can have close monitoring # xochitl: in setting of profuse diarrhea and poor po intake as well as sepsis and HD mediated, IVF, monitor overnight # recent empyema/pna/strep pneumo: completed a month long course of abx, followed by ID, nothing to suggest that this is worsening at this point # hyperglycemia: presumably stress response, monitoring # IP status, patient will require > 48 hours stay given above, severe sepsis present with abnormal vital signs requiring SDU and close monitoring, > 35 min critical care time spent in evaluation of labs/imaging, bedside evaluation of patient and coordination of care with ER doctor and nurses
[2018-09-21] MEDS: VANCOMYCIN 125 MG/2.5 ML UDL PO SCH ×2 (17:00→20:49)
[2018-09-21] MEDS ORDERED: NS BOLUS 1000 ML (Wide open) IV ONE (18:30)
--- NOTE | 2018-09-21 18:47 | PDMN ---
Medical Necessity Medical necessity: Pt meets IP criteria as of 09/21/2018 per and MCG M-160 ( sepsis); est los > 2 mn for ongoing tx and management of sepsis with leukocytosis and tachycardia in the setting of recent pneumonia and empyema as well as diarrhea/ peters colitis.
--- NOTE | 2018-09-21 18:53 | ASMTCMCOM ---
CM Note CM Note Notes: Pt presented to the ED for diarrhea, abdominal pain, and malaise x 10days. Pt admitted for C.Diff, severe sepsis, OLIVIA. Pt recently admtd 08/12-08/28/18 for PNA, empyema, and sepsis. Pt was d/c'd home w/her son, Satish and and PIEDAD, who live in [facility]. Pt was d/c'd w/home O2. Pt lives in [place] but was out visiting Satish when she was admitted last month. Pt was hoping to return to [place] this month and potentially move out to [place] in the near future. Pt states she followed up w/ID but did not complete her antibiotics due to side effects she was experiencing. See H&P for additional info. 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 Exact DC needs TBD. Pt may need SNF or Home w/HC. CM to follow. Date Signed: 09/21/2018 06:52 PM Electronically Signed By:Shala Couch RN
[2018-09-22] MEDS ORDERED: NS 1,000 ML IV ONE ×2 (01:18→02:35)
--- NOTE | 2018-09-22 03:00 | HOSPPROG ---
Hospitalist Progress Note Assessment/Plan: XC: Notified by RN of hypotension. The patient has SBP in the 70's despite aggressive hydration (~7 L so far today), including 2 L NS bolused tonight. Her abdomen is soft and the patient has no new symptoms to suggest alternative source of infection aside form severe C Diff. I will ask the surgeon to place a central line and start norepinephrine. Additionally, I will add metronidazole IV to the PO Vancomycin already ordered. Objective: Vital Signs Temp Pulse Resp BP Pulse Ox 37.2 C 125 H 21 H 113/61 98 09/22/18 00:39 09/22/18 00:39 09/22/18 00:39 09/22/18 00:39 09/22/18 00:39 Microbiology 09/21/18 16:35 Gastrointestinal Tract Panel (PCR) - Final Stool Clostridium Difficile Detected 09/20/18 09/21/18 09/22/18 05:59 05:59 05:59 Intake Total 5973 Balance 5973 PT 17.6 SEC (12.0-15.0) H 09/21/18 11:20 INR 1.43 (0.83-1.16) H 09/21/18 11:20 ICD10 Worksheet Patient Problems: Problems Problem Status Onset Abdominal pain Acute Diarrhea Acute chronic disease [facility]/transitional care Acute COPD exacerbation Acute Pneumonia Acute Sepsis Acute Renal insufficiency Acute
[2018-09-22] MEDS ORDERED: LIDOCAINE 1% 300 MG/30 ML SDV ONE (03:13)
[2018-09-22] MEDS ORDERED: NOREPINEPHRINE BITARTRATE 4 MG in NS 500 ML IV SCH (03:30)
[2018-09-22 03:31] LABS: PLATELET COUNT 271 10^3/uL (150-400)
--- NOTE | 2018-09-22 04:21 | POSTOPPROG ---
Post Op Note Date of Operation: 09/22/18 Surgeon: Nacho Stout (, FACS) Anesthesia: Local (Specify) (1% lidocaine) Pre-op Diagnosis: sepsis/C. diff colitis Post-op Diagnosis: same Procedure: left IJ 3x lumen cath Inf/Abcess present in the surg proc area at time of surgery?: No Complications: inability to cannulate left subclavian vein
--- NOTE | 2018-09-22 04:41 | GOP ---
DATE OF OPERATION: 09/22/2018 SURGEON: Nacho Stout MD,FACS ANESTHESIA: Local. PREOPERATIVE DIAGNOSIS: 1. Need for central venous access. 2. Sepsis secondary to Clostridium difficile colitis. POSTOPERATIVE DIAGNOSIS: 1. Need for central venous access. 2. Sepsis secondary to Clostridium difficile colitis. PROCEDURE PERFORMED: Placement of left internal jugular triple-lumen catheter. FINDINGS: Inability to cannulate the left subclavian vein. Left internal jugular vein cannulated under sonographic visualization. Postprocedural chest x -ray pending at time of dictation. ESTIMATED BLOOD LOSS: For the procedure: 10 cc. DESCRIPTION OF PROCEDURE: After informed consent was obtained, the patient was positioned in Trendelenburg with both arms tucked at the side. The chest wall was prepped and draped in the usual sterile fashion. Before proceeding, a time- out and identification of the patient was performed. The left infraclavicular fossa was infiltrated with 1% lidocaine down to the clavicular periosteum. An 18-gauge thin wall needle was then advanced under the clavicle without being able to cannulate the subclavian vein. I abandoned this approach early on and brought the ultrasound into the field using a sterile cover. The left internal jugular vein was clearly visualized, and the skin lateral to the sternocleidomastoid was infiltrated with 1% lidocaine and the vein cannulated with an 18-gauge thin wall needle. A flexible J-wire was introduced and advanced without resistance. The skin was incised with a #11 scalpel blade. A dilator was passed over the wire, and the triple-lumen catheter advanced over the wire without resistance. The catheter was secured to the skin with interrupted 3-0 silk suture. Sterile dressings were applied. The 3 lumens of the catheter had good venous return and were flushed with dilute heparin solution. COMPLICATIONS: None. /[id number]/MODL MTDD
[2018-09-22] MEDS: CYANO/VITAMIN B12 1000 MCG TAB PO SCH (08:29)
[2018-09-22] MEDS: ASCORBIC ACID 500 MG TAB PO SCH (08:29)
[2018-09-22] MEDS: VANCOMYCIN 125 MG/2.5 ML UDL PO SCH ×4 (08:29→20:12)
[2018-09-22] MEDS: LEVOTHYROXINE 50 MCG TAB PO SCH (08:29)
--- NOTE | 2018-09-22 10:21 | PCMIDPN ---
Assessment/Plan: Assessment: C diff colitis-patient admitted to the intensive care unit yesterday. She did need some blood pressure support with Levophed overnight. Clinically she looks good today. Her blood pressure is stable and her Levophed dose has been able to be decreased steadily. Her abdominal pain is decreased. She continues to have liquid stools. Plan is to continue her on oral vancomycin 125 mg 4 times daily. Continue volume resuscitation. Plan: 1. Vancomycin 125 mg p.o. 4 times a day. 2. Hydration with IV fluids. 3. Follow clinical course. 4. Wean pressors as able. 09/22/18 10:18 Subjective: Patient is doing fairly well this morning. She required central line placement and IV Levophed overnight due to hypotension. She continues to have liquid stools. Her abdominal pain is somewhat decreased. She is taking some liquids orally. Continues to have no appetite. Objective: P. O. Vancomycin # 1 Vital Signs Temp Pulse Resp BP Pulse Ox 37.1 C 111 H 20 116/62 97 09/22/18 04:42 09/22/18 07:31 09/22/18 07:31 09/22/18 07:31 09/22/18 07:31 Microbiology 09/21/18 16:35 Gastrointestinal Tract Panel (PCR) - Final Stool Clostridium Difficile Detected Laboratory Results 09/22/18 02:44 09/22/18 02:44 09/21/18 09/22/18 09/23/18 05:59 05:59 05:59 Intake Total 6865 Balance 6865 - Physical Exam General Appearance: WD/WN, alert, no apparent distress, thin, non-toxic Respiratory: lungs clear, normal breath sounds, No respiratory distress Cardiac/Chest: regular rate, rhythm, No tachycardia Abdomen: soft, No non-tender, No mass, No peritoneal signs Skin: normal color, warm/dry, No rash Neuro/Psych: alert, normal mood/affect, oriented x 3 ICD10 Worksheet Patient Problems: Problems Problem Status Onset Abdominal pain Acute Diarrhea Acute COPD exacerbation Acute Pneumonia Acute Renal insufficiency Acute Sepsis Acute chronic disease [facility]/transitional care Acute
--- NOTE | 2018-09-22 11:35 | HOSPPROG ---
Hospitalist Progress Note Assessment/Plan: 77 yo F with recent dx of PNA/empyema/strep bacteremia with prolonged abx use presenting with sepsis/diarrhea # c diff colitis: in the setting of recent prolonged abx use, started on oral vanco with decrease in wbc from 44 to 27 overnight, no longer having diarrhea but continues to have abdominal cramping and pain # septic shock: in the settting of above, no longer fluid responsive last night and started on NE and maintaining MAPS now on low NE # xochitl: in setting of profuse diarrhea and poor po intake as well as septic shock , HD mediated, now resolved # recent empyema/pna/strep pneumo: completed a month long course of abx, followed by ID, nothing to suggest that this is worsening at this point # anemia: overnight drop in h/h likely dilutional, baseline is close to current level and likely due to anemia of chronic disease # hyperglycemia: presumably stress response, monitoring # IP status, patient will require > 48 hours stay given above, > 35 min critical care time spent in evaluation of labs/imaging, bedside evaluation of patient and coordination of care with ER doctor and nurses Subjective: no significant overnight events, patient states she is not feeling any better currently but has not been having much diarrhea today Objective: Vital Signs Temp Pulse Resp BP Pulse Ox 37.4 C 120 H 26 H 120/66 96 09/22/18 08:00 09/22/18 11:00 09/22/18 11:00 09/22/18 11:00 09/22/18 11:00 Microbiology 09/21/18 16:35 Gastrointestinal Tract Panel (PCR) - Final Stool Clostridium Difficile Detected Laboratory Results 09/22/18 02:44 09/22/18 02:44 09/21/18 09/22/18 09/23/18 05:59 05:59 05:59 Intake Total 6865 Balance 6865 PT 17.6 SEC (12.0-15.0) H 09/21/18 11:20 INR 1.43 (0.83-1.16) H 09/21/18 11:20 awake alert anicteric op clear tachy regular cta dec at bases soft mildly distended diffuse ttp no cce warm dry well perfused oriented ICD10 Worksheet Patient Problems: Problems Problem Status Onset Abdominal pain Acute Diarrhea Acute COPD exacerbation Acute Pneumonia Acute Renal insufficiency Acute Sepsis Acute chronic disease mgmt/transitional care Acute
--- NOTE | 2018-09-22 17:45 | GHP ---
DATE OF ADMISSION: 09/21/2018 REFERRING PHYSICIAN: Felice Nicholson MD REASON FOR REFERRAL: Evaluation, management of hypotension and C difficile colitis with diarrhea. HISTORY: The patient is a 77-year-old woman with a history of recent pneumonia complicated by empyem a and strep bacteremia. She was treated with 2 weeks of ceftriaxone followed by moxifloxacin. She s topped the moxifloxacin because she was told she was having side effects. She was discharged about 4 weeks ago and, since then, has been having a large amount of diarrhea, including fecal incontinence. She has not been eating much because of the diarrhea. She denies fevers or chills prior to admissi on. She was admitted and had hypotension requiring norepinephrine in order to maintain her blood pre ssure. She reports that her diarrhea is getting a bit better and her abdomen is a bit less tender. PAST MEDICAL HISTORY: 1. Lung cancer. 2. History of COPD. MEDICATIONS: At the time of admission include levothyroxine, vitamin C, Proventil, and Nicorette Gum . ALLERGIES: None. SOCIAL HISTORY: Patient is a former smoker, having stopped about 7 months ago. She denies alcohol u se. She lives alone. FAMILY HISTORY: Positive for cancer. REVIEW OF SYSTEMS: A 10-point review of systems adds nothing to the history of present illness. PHYSICAL EXAMINATION: GENERAL: The patient is awake and alert. She is in no acute distress. VITAL SIGNS: Blood pressure is 107/53 on 0.5 of norepinephrine. Her heart rate is 116. Her oxygen satur ations are 98% on 2 L. HEENT: Normocephalic and atraumatic. No icterus. NECK: No adenopathy. Th e trachea is midline. CHEST: Clear to auscultation. CARDIAC: Regular rate and rhythm without murm ur. ABDOMEN: Soft. She has some tenderness to firm palpation in the lower midline. Bowel sounds a re present. EXTREMITIES: No clubbing, cyanosis, or edema. NEURO: The patient is awake and alert. She has no gross motor or sensory deficits. LABORATORY: A white blood count is 27.7, down from 44.0 (with 18% bands). A hemoglobin is 9.1. The chemistry group is remarkable only for a carbon dioxide level that is low at 19. An anion gap is 4. A lipase is 18. A lactate is 0.9, down from 4.1. An INR is 1.4. A chest x-ray demonstrates improved infiltrates when compared to the prior chest x-ray. Images revie wed by me. A CT scan of the abdomen shows pancolitis. ASSESSMENT: Clostridium difficile colitis. The patient has significant abdominal pain, profuse diar jenny, and hypotension, consistent with severe Clostridium difficile colitis. She is clinically impro lizzeth but continues to require low-dose norepinephrine in order to maintain her blood pressure. She is on oral vancomycin as well. RECOMMENDATIONS: 1. Continue vancomycin. 2. Continue low-dose norepinephrine; try to wean off. 3. Try re-bolusing with fluids if CVP is low and still requiring norepinephrine. /[id number]/MODL
[2018-09-23] MEDS: LEVOTHYROXINE 50 MCG TAB PO SCH (06:10)
[2018-09-23] MEDS: VANCOMYCIN 125 MG/2.5 ML UDL PO SCH ×4 (06:10→22:41)
[2018-09-23] MEDS: ASCORBIC ACID 500 MG TAB PO SCH (09:39)
[2018-09-23] MEDS: CYANO/VITAMIN B12 1000 MCG TAB PO SCH (09:39)
[2018-09-23] MEDS ORDERED: ALBUMIN 5% 500 ML IV ONE (10:29)
[2018-09-23] MEDS ORDERED: PROTOCOL MAGNESIUM 1 DOSE IV PRN (10:42)
[2018-09-23] MEDS ORDERED: PROTOCOL K PHOSPHATE 1 DOSE IV PRN (10:42)
[2018-09-23] MEDS ORDERED: PROTOCOL POTASSIUM 1 DOSE MISC PRN (10:42)
[2018-09-23] MEDS ORDERED: PROTOCOL CALCIUM 1 DOSE IV PRN (10:42)
--- NOTE | 2018-09-23 10:42 | HOSPPROG ---
Hospitalist Progress Note Assessment/Plan: 77 yo F with recent dx of PNA/empyema/strep bacteremia with prolonged abx use presenting with sepsis/diarrhea # c diff colitis: in the setting of recent prolonged abx use, started on oral vanco and IV flagyl also added, patient was initially not having diarrhea but notes that over the last 24 hours she is having at least 1/hour and still with significant urgency. # septic shock: in the settting of above, no longer fluid responsive last night and started on NE and maintaining MAPS now on low NE, continue to attempt to wean off pressors # xochitl: in setting of profuse diarrhea and poor po intake as well as septic shock , HD mediated, now resolved # recent empyema/pna/strep pneumo: completed a month long course of abx, followed by ID, nothing to suggest that this is worsening at this point # anemia: overnight drop in h/h likely dilutional, baseline is close to current level and likely due to anemia of chronic disease # hyperglycemia: presumably stress response, monitoring # IP status, patient will require > 48 hours stay given above, > 35 min critical care time spent in evaluation of labs/imaging, bedside evaluation of patient and coordination of care with consulting MDs/nurses Subjective: patient notes she is still having BMs every hour, has to run to the toilet, unable to really tolerate food or liquid due to increased stooling, some abd pain along with cramping and diarrhea Objective: Vital Signs Temp Pulse Resp BP Pulse Ox 37 C 121 H 21 H 87/54 L 90 L 09/23/18 00:30 09/23/18 07:43 09/23/18 07:43 09/23/18 07:43 09/23/18 07:43 Laboratory Results 09/23/18 09:45 09/22/18 09/23/18 09/24/18 05:59 05:59 05:59 Intake Total 6865 3719 Output Total 1000 Balance 6865 2719 PT 17.6 SEC (12.0-15.0) H 09/21/18 11:20 INR 1.43 (0.83-1.16) H 09/21/18 11:20 awake alert anicteric op clear tachy regular cta dec at bases soft mildly distended diffuse ttp no cce warm dry well perfused oriented ICD10 Worksheet Patient Problems: Problems Problem Status Onset Abdominal pain Acute Diarrhea Acute COPD exacerbation Acute Pneumonia Acute Renal insufficiency Acute Sepsis Acute chronic disease mgmt/transitional care Acute
[2018-09-23] MEDS: ENOXAPARIN 40 MG/0.4 ML SYR SC SCH (10:58)
[2018-09-23 11:17] LABS: PLATELET COUNT 383 10^3/uL (150-400)
--- NOTE | 2018-09-23 11:47 | PCMIDPN ---
Assessment/Plan: Assessment/Plan: * Severe/fulminant C difficile colitis: Patient with persistent frequent diarrhea and need for pressor support for hypotension consistent with fulminant categorization. Will therefore increase oral vancomycin to 500 mg p.o. four times daily and continue IV metronidazole q.8 hours. Will follow clinical response to these measures. Pathophysiology and epidemiology of C difficile reviewed with patient today. Continue contact precautions. No significant distension to suggest toxic megacolon. Prominent leukocytosis persists but has decreased in response to initiation of C difficile therapy. * Recent pneumococcal sepsis and empyema status post 4 weeks of antibiotic therapy: No signs or symptoms of persistent empyema and recent repeat CT of chest showed marked improvement versus prior. 09/23/18 11:43 09/23/18 11:46 09/23/18 11:47 Subjective: Patient complains of ongoing frequent diarrhea almost hourly. Continues to have some crampy abdominal pain and excessive gas. No nausea or vomiting. Objective: Vital Signs Temp Pulse Resp BP Pulse Ox 37 C 121 H 21 H 87/54 L 90 L 09/23/18 00:30 09/23/18 07:43 09/23/18 07:43 09/23/18 07:43 09/23/18 07:43 Laboratory Results 09/23/18 09:45 09/23/18 09:45 09/22/18 09/23/18 09/24/18 05:59 05:59 05:59 Intake Total 6865 3719 Output Total 1000 Balance 6826 2189 Oral vancomycin 125 mg four times daily #3 Flagyl 500 mg IV q.8 hours #2 Blood cultures x2 no growth - Physical Exam General Appearance: alert, no apparent distress, non-toxic EENT: dry mucous membranes, No scleral icterus Respiratory: lungs clear, No respiratory distress Cardiac/Chest: tachycardia Extremities: No inflammation Abdomen: non-tender, distended Skin: No rash Neuro/Psych: No confused - Time Spent With Patient Time Spent with Patient: greater than 35 minutes Time Spent with Patient: Greater than 35 minutes spent on this patients care, greater than 50% of time spent counseling, educating, and coordinating care regarding the above mentioned plan. ICD10 Worksheet Patient Problems: Problems Problem Status Onset Abdominal pain Acute Diarrhea Acute COPD exacerbation Acute Pneumonia Acute Renal insufficiency Acute Sepsis Acute chronic disease mgmt/transitional care Acute
[2018-09-23] MEDS ORDERED: K PHOS 10 MMOL in D5W 250 ML IV ONE (12:00)
[2018-09-23] MEDS: NS 1,000 ML IV SCH (13:07)
[2018-09-23] MEDS ORDERED: MAGNESIUM SULF 1 GM/DEXTROSE 100 ML IV ONE (14:07)
--- NOTE | 2018-09-23 16:12 | ASMTCMCOM ---
CM Note CM Note Notes: Pt discussed in rounds. Could benefit from PT/OT, discussed with MD and RN. MD will put orders in. CM to follow. Plan: TBD? maybe home with [facility] Date Signed: 09/23/2018 04:11 PM Electronically Signed By:PIYUSH Schneider
--- NOTE | 2018-09-23 16:15 | ASMTCMCOM ---
CM Note CM Note Notes: Please disregard last CM note dated 09/23/18 16:11, written on wrong patient. Date Signed: 09/23/2018 04:14 PM Electronically Signed By:PIYUSH Schneider
[2018-09-23] MEDS: POTASSIUM Cl (KCl) 50 ML IV SCH ×2 (16:20→17:39)
--- NOTE | 2018-09-23 17:02 | PDINTPN ---
Rotogravure Press Operator Progress Note Assessment/Plan: Assessment: Sepsis/hypotension. Improving. Secondary to severe C diff colitis, diarrhea, and volume depletion. Off pressors. C difficile colitis. On oral vancomycin and IV Flagyl. History recent pneumonia/empyema. Was on antibiotics for a month. Chest x-ray significantly improved. No evidence of residual active pneumonia. COPD/emphysema. Secondary to previous tobacco abuse. She has some chest tightness. On oxygen at 2 L. Will add Xopenex, restart her Advair. Tachycardia: Sinus. Multifactorial. Metabolic: Hyponatremic, hypophosphatemic. DVT prophylaxis: Lovenox. GI prophylaxis: None, will add pantoprazole Plan: Continue supportive care in the intensive care unit. Continue vancomycin and Flagyl. Decrease IV fluids. Plasmanate if needed. Follow CVP. Follow laboratory, chest x-ray intermittently. Will add Xopenex by nebulizer and restart Advair which she has been on in the past. 35 min of clinic time spent directly with the patient. Discussed with patient, nursing, respiratory, the ICU multi disciplinary team. Objective: Vital Signs Temp Pulse Resp BP Pulse Ox 37.4 C 121 H 24 H 119/55 L 95 09/23/18 16:00 09/23/18 16:00 09/23/18 16:00 09/23/18 16:00 09/23/18 16:00 Laboratory Results 09/23/18 09:45 09/23/18 12:58 09/22/18 09/23/18 09/24/18 05:59 05:59 05:59 Intake Total 6803 3719 Output Total 1000 Balance 6865 5059 PT 17.6 SEC (12.0-15.0) H 09/21/18 11:20 INR 1.43 (0.83-1.16) H 09/21/18 11:20 ICD10 Worksheet Patient Problems: Problems Problem Status Onset Abdominal pain Acute Diarrhea Acute COPD exacerbation Acute Pneumonia Acute Renal insufficiency Acute Sepsis Acute chronic disease mgmt/transitional care Acute
[2018-09-23] MEDS: LEVALBUTEROL 0.63 MG/3 ML DEYVIAL IH SCH (20:01)
[2018-09-23] MEDS: FLUTICASONE/SALMETER 250/50MCG DISKUS IH SCH (20:06)
[2018-09-23] MEDS: IPRATROPIUM/ALBUTEROL 3 ML DEYVIAL IH PRN (22:37)
[2018-09-24] MEDS: POTASSIUM Cl (KCl) 50 ML IV SCH ×5 (04:15→15:47)
[2018-09-24 04:43] LABS: PLATELET COUNT 331 10^3/uL (150-400)
[2018-09-24] MEDS: LEVALBUTEROL 0.63 MG/3 ML DEYVIAL IH SCH ×4 (05:36→20:15)
[2018-09-24] MEDS: LEVOTHYROXINE 50 MCG TAB PO SCH (05:45)
[2018-09-24] MEDS: VANCOMYCIN 125 MG/2.5 ML UDL PO SCH ×4 (05:45→21:36)
[2018-09-24] MEDS: CYANO/VITAMIN B12 1000 MCG TAB PO SCH (09:00)
[2018-09-24] MEDS: ENOXAPARIN 40 MG/0.4 ML SYR SC SCH (09:00)
[2018-09-24] MEDS: ASCORBIC ACID 500 MG TAB PO SCH (09:00)
[2018-09-24] MEDS: FLUTICASONE/SALMETER 250/50MCG DISKUS IH SCH ×2 (09:01→20:16)
--- NOTE | 2018-09-24 09:08 | PCMIDPN ---
Assessment/Plan: Assessment/Plan: * Severe/fulminant C difficile colitis: Gradual improvement with decreasing white blood cell count, no further need for pressors and less voluminous diarrhea/abdominal cramping. Continue high-dose oral vancomycin and IV metronidazole. Hope can remove triple-lumen catheter and Drew catheter soon to minimize risk of healthcare associated infection. Encourage patient to spend time sitting up in chair during course of day. * Recent pneumococcal sepsis and empyema status post 4 weeks of antibiotic therapy: No signs or symptoms of persistent empyema and recent repeat CT of chest showed marked improvement versus prior. 09/24/18 09:04 Subjective: Patient with persistent diarrhea. Notes that it is less voluminous but remains frequent. No significant abdominal cramping. Gas primarily with episodes of diarrhea. Remains with poor appetite. Pressors have been discontinued. Objective: Vital Signs Temp Pulse Resp BP Pulse Ox 36.6 C 127 H 20 123/63 H 97 09/23/18 22:00 09/24/18 06:00 09/24/18 06:00 09/24/18 06:00 09/24/18 06:00 Laboratory Results 09/24/18 04:15 09/24/18 04:15 09/23/18 09/24/18 09/25/18 05:59 05:59 05:59 Intake Total 3719 3078.3 Output Total 1000 700 Balance 2719 2378.3 Oral vancomycin 500 mg four times daily # 1 (oral vancomycin # 4 - previous dose 125 mg four times daily) Metronidazole 500 mg IV q.8 hours # 3 - Physical Exam General Appearance: alert, no apparent distress, non-toxic EENT: dry mucous membranes, No scleral icterus, No thrush Respiratory: lungs clear, No respiratory distress Cardiac/Chest: tachycardia Extremities: No inflammation Abdomen: non-tender, No distended ICD10 Worksheet Patient Problems: Problems Problem Status Onset Abdominal pain Acute Diarrhea Acute COPD exacerbation Acute Pneumonia Acute Renal insufficiency Acute Sepsis Acute chronic disease mgmt/transitional care Acute
[2018-09-24] MEDS ORDERED: K PHOS 10 MMOL in D5W 250 ML IV ONE (12:00)
[2018-09-24] MEDS ORDERED: MAGNESIUM SULF 1 GM/DEXTROSE 100 ML IV ONE (12:25)
--- NOTE | 2018-09-24 12:57 | HOSPPROG ---
Hospitalist Progress Note Assessment/Plan: 77 yo F with recent dx of PNA/empyema/strep bacteremia with prolonged abx use presenting with sepsis/diarrhea and positive C diff # c diff colitis: 2/2 recent prolonged abx use -cont high dose vanco plus IV flagyl, appreciate ID input # septic shock: 2/2 above, now off pressors, BP stable, but remains tachycardic # xochitl: pre-renal in setting of shock, Cr now normalized # tachycardia: sinus. this was present during previous hospitalization, may be partly related to COPD plus acute infection -cont telemetry monitoring # recent empyema/pna/strep pneumo: completed a month long course of abx # anemia: suspect anemia of chronic disease, no e/o active bleeding, stable -monitor # hyperglycemia: presumably stress response, monitoring # dvt pplx: lovenox # dispo: cont inpt Subjective: Pt continues to c/o mucus stools frequently. Less abdominal pain. No fevers. Tolerating po. Objective: Vital Signs Temp Pulse Resp BP Pulse Ox 36.9 C 115 H 16 104/56 L 97 09/24/18 08:00 09/24/18 10:58 09/24/18 10:58 09/24/18 08:00 09/24/18 10:58 Laboratory Results 09/24/18 04:15 09/23/18 09/24/18 09/25/18 05:59 05:59 05:59 Intake Total 3719 3078.3 Output Total 1000 700 Balance 2719 2378.3 PT 17.6 SEC (12.0-15.0) H 09/21/18 11:20 INR 1.43 (0.83-1.16) H 09/21/18 11:20 - Physical Exam Constitutional: no apparent distress Eyes: PERRL Ears, Nose, Mouth, Throat: moist mucous membranes Cardiovascular: regular rate and rhythym Respiratory: no respiratory distress, clear to auscultation Gastrointestinal: other (soft, mild distention, minimal TTP, no r/r/g, +BS) Skin: warm Musculoskeletal: full muscle strength Neurologic: AAOx3 Psychiatric: interacting appropriately ICD10 Worksheet Patient Problems: Problems Problem Status Onset Abdominal pain Acute Diarrhea Acute COPD exacerbation Acute Pneumonia Acute Renal insufficiency Acute Sepsis Acute chronic disease mgmt/transitional care Acute
[2018-09-24] MEDS ORDERED: MAGNESIUM SULF 1 GM/DEXTROSE 100 ML BAG IV ONE (13:34)
--- NOTE | 2018-09-24 13:41 | PDINTPN ---
Home Stereo Equipment Installer Progress Note Assessment/Plan: Assessment: Sepsis/hypotension. Improved. Secondary to severe C diff colitis, diarrhea, and volume depletion. Off pressors. C difficile colitis. On oral vancomycin and IV Flagyl. Still with frequent stools History recent pneumonia/empyema. Was on antibiotics for a month. Chest x-ray significantly improved. No evidence of residual active pneumonia. COPD/emphysema. Secondary to previous tobacco abuse. On oxygen at 1-2 L. On add Xopenex, Advair. Tachycardia: Sinus. Multifactorial. Metabolic: Hyponatremic, hypophosphatemic. On replacement protocols. DVT prophylaxis: Lovenox. GI prophylaxis: pantoprazole Plan: Continue supportive care in the intensive care unit. Can transition to SDU status. Continue vancomycin and Flagyl. Follow blood pressure, heart rate. Follow laboratory, chest x-ray intermittently. Continue bronchodilator treatments. 30 min of clinic time spent directly with the patient. Discussed with patient, nursing, respiratory, the ICU multi disciplinary team. Subjective: Denies abdominal pain. Less diarrhea? Objective: Vital Signs Temp Pulse Resp BP Pulse Ox 37.3 C 126 H 26 H 111/59 L 95 09/24/18 12:00 09/24/18 12:00 09/24/18 12:00 09/24/18 12:00 09/24/18 12:00 Laboratory Results 09/24/18 04:15 09/24/18 12:10 09/23/18 09/24/18 09/25/18 05:59 05:59 05:59 Intake Total 3719 3078.3 Output Total 1000 700 Balance 2719 2378.3 PT 17.6 SEC (12.0-15.0) H 09/21/18 11:20 INR 1.43 (0.83-1.16) H 09/21/18 11:20 Physical Exam - Physical Exam General Appearance: alert, no apparent distress EENT: other (Nasal cannula in place at 1 L) Neck: normal inspection (No JVD) Respiratory: lungs clear, decreased breath sounds (At bases), prolonged expiration, No rales, No rhonchi, No wheezing Cardiac/Chest: tachycardia (Sinus), No gallop Abdomen: non-tender, soft, distended (Some distension), No normal bowel sounds ( Increased) Pelvic Exam: other (Drew catheter removed) Skin: normal color, warm/dry Extremities: No pedal edema Neuro/Psych: no motor/sensory deficits, No cognition abnormalities ICD10 Worksheet Patient Problems: Problems Problem Status Onset Abdominal pain Acute Diarrhea Acute chronic disease mgmt/transitional care Acute COPD exacerbation Acute Pneumonia Acute Sepsis Acute Renal insufficiency Acute
[2018-09-24] MEDS: PANTOPRAZOLE SODIUM 40 MG TAB PO SCH (14:32)
[2018-09-24] MEDS ORDERED: POTASSIUM Cl (KCl) 50 ML IV ONE (20:45)
[2018-09-25] MEDS: VANCOMYCIN 125 MG/2.5 ML UDL PO SCH ×4 (05:50→21:56)
[2018-09-25] MEDS: NS 1,000 ML IV SCH ×2 (05:51→16:56)
[2018-09-25] MEDS: LEVOTHYROXINE 50 MCG TAB PO SCH (06:04)
[2018-09-25] MEDS: LEVALBUTEROL 0.63 MG/3 ML DEYVIAL IH SCH ×4 (06:05→21:22)
[2018-09-25 06:11] LABS: PLATELET COUNT 417 10^3/uL (150-400)
[2018-09-25] MEDS: ENOXAPARIN 40 MG/0.4 ML SYR SC SCH (08:49)
[2018-09-25] MEDS: ASCORBIC ACID 500 MG TAB PO SCH (08:49)
[2018-09-25] MEDS: CYANO/VITAMIN B12 1000 MCG TAB PO SCH (08:49)
[2018-09-25] MEDS: PANTOPRAZOLE SODIUM 40 MG TAB PO SCH (08:49)
[2018-09-25] MEDS: FLUTICASONE/SALMETER 250/50MCG DISKUS IH SCH ×2 (09:02→21:22)
--- NOTE | 2018-09-25 10:01 | HOSPPROG ---
Hospitalist Progress Note Assessment/Plan: 77 yo F with recent dx of PNA/empyema/strep bacteremia with prolonged abx use presenting with sepsis/diarrhea and positive C diff # c diff colitis: 2/2 recent prolonged abx use - still with frequent watery stools, but wbc's trending down, afebrile, less pain/cramping -cont high dose vanco plus IV flagyl, appreciate ID input -may need to consider change in therapy or fecal transplant if diarrhea not improving soon # septic shock: 2/2 above, now off pressors, BP stable, but remains tachycardic # xochitl: pre-renal in setting of shock, Cr now normalized # tachycardia: sinus. this was present during previous hospitalization, may be partly related to COPD plus acute infection -cont telemetry monitoring # recent empyema/pna/strep pneumo: completed a month long course of abx # anemia: suspect anemia of chronic disease, no e/o active bleeding, stable -monitor # hyperglycemia: presumably stress response, monitoring # dvt pplx: lovenox # dispo: cont inpt, can likely transfer to med/surg today Subjective: Pt continues to c/o frequent watery stools, up 6 times overnight. No fevers/chills. Less pain/cramping. No N/V. Taking po well. Objective: Vital Signs Temp Pulse Resp BP Pulse Ox 36.5 C 114 H 20 109/81 H 100 09/25/18 08:00 09/25/18 08:00 09/25/18 08:00 09/25/18 08:00 09/25/18 08:00 Laboratory Results 09/25/18 06:00 09/25/18 06:00 09/24/18 09/25/18 09/26/18 05:59 05:59 05:59 Intake Total 3078.3 3089 Output Total 700 1250 Balance 2378.3 1839 PT 17.6 SEC (12.0-15.0) H 09/21/18 11:20 INR 1.43 (0.83-1.16) H 09/21/18 11:20 - Physical Exam Constitutional: no apparent distress Eyes: PERRL Ears, Nose, Mouth, Throat: moist mucous membranes Cardiovascular: regular rate and rhythym Respiratory: no respiratory distress Gastrointestinal: normoactive bowel sounds, other (soft, minimal distention, no r/r/g, +BS) Skin: warm Musculoskeletal: full muscle strength Neurologic: AAOx3 Psychiatric: interacting appropriately ICD10 Worksheet Patient Problems: Problems Problem Status Onset Abdominal pain Acute Diarrhea Acute COPD exacerbation Acute Pneumonia Acute Renal insufficiency Acute Sepsis Acute chronic disease mgmt/transitional care Acute
--- NOTE | 2018-09-25 13:51 | PDINTPN ---
Database Report Writer Progress Note Assessment/Plan: Assessment: Sepsis/hypotension. Resolved. Blood pressure soft at times. Secondary to severe C diff colitis, diarrhea, and volume depletion. Off pressors. C difficile colitis. On oral vancomycin and IV Flagyl. Still with frequent stools: 6 overnight History recent pneumonia/empyema. Was on antibiotics for a month. Chest x-ray significantly improved. No evidence of residual active pneumonia. COPD/emphysema. Secondary to previous tobacco abuse. On oxygen at 1-2 L. On Xopenex, Advair. Tachycardia: Sinus. Multifactorial. Metabolic: On replacement protocols. DVT prophylaxis: Lovenox. GI prophylaxis: pantoprazole Plan: Continue supportive care. Can transfer to a medical-surgical bed. Continue oral vancomycin and IV Flagyl. Follow blood pressure, heart rate. Follow laboratory, chest x-ray intermittently as indicated. Continue bronchodilator treatments. 25 min of clinic time spent directly with the patient. Discussed with patient, nursing, respiratory, the ICU multi disciplinary team. Subjective: Still with diarrhea. Denies significant shortness of breath. Denies abdominal pain. Objective: Vital Signs Temp Pulse Resp BP Pulse Ox 36.9 C 120 H 16 116/71 94 09/25/18 13:11 09/25/18 13:11 09/25/18 13:11 09/25/18 13:11 09/25/18 13:11 Laboratory Results 09/25/18 06:00 09/25/18 06:00 09/24/18 09/25/18 09/26/18 05:59 05:59 05:59 Intake Total 3078.3 3089 500 Output Total 700 1250 Balance 2378.3 1839 500 PT 17.6 SEC (12.0-15.0) H 09/21/18 11:20 INR 1.43 (0.83-1.16) H 09/21/18 11:20 Laboratory Tests 09/25/18 09/25/18 06:00 06:00 Calcium 7.7 L Ionized Calcium 1.19 Phosphorus 2.4 L Magnesium 1.9 Physical Exam - Physical Exam General Appearance: alert, no apparent distress EENT: PERRL/EOMI, other (Nasal cannula in place at 2 L) Neck: normal inspection (No JVD) Respiratory: lungs clear, decreased breath sounds, prolonged expiration, No rhonchi, No wheezing Cardiac/Chest: regular rate, rhythm, No gallop Abdomen: normal bowel sounds, non-tender, soft, distended (Mildly distended) Pelvic Exam: other (Drew catheter removed) Skin: normal color, warm/dry Extremities: No pedal edema Neuro/Psych: no motor/sensory deficits, No cognition abnormalities ICD10 Worksheet Patient Problems: Problems Problem Status Onset Abdominal pain Acute Diarrhea Acute chronic disease mgmt/transitional care Acute COPD exacerbation Acute Pneumonia Acute Sepsis Acute Renal insufficiency Acute
--- NOTE | 2018-09-25 16:03 | PCMIDPN ---
Assessment/Plan: Assessment/Plan: * Severe/fulminant C difficile colitis: Persistent frequent diarrhea with decreased white blood cell count. Will continue high-dose oral vancomycin and IV metronidazole. If no improvement by tomorrow, will change oral vancomycin to fidaxomicin to see if leads to any further clinical improvement. Other mathur , if fails to show further improvement may ultimately require fecal transplantation. * Recent pneumococcal sepsis and empyema status post 4 weeks of antibiotic therapy: No signs or symptoms of persistent empyema and recent repeat CT of chest showed marked improvement versus prior. 09/25/18 16:02 09/25/18 16:21 Subjective: Patient complains of persistent diarrhea. Notes she has been up to the toilet approximately every hour. Then she just passes gas rather than has diarrhea. Typically does not have the more than 1 cup of liquid at a time. Appetite remains suppressed. No significant abdominal pain. Objective: Vital Signs Temp Pulse Resp BP Pulse Ox 36.9 C 120 H 20 116/71 100 09/25/18 13:11 09/25/18 15:07 09/25/18 15:07 09/25/18 13:11 09/25/18 15:07 Laboratory Results 09/25/18 06:00 09/25/18 14:07 09/24/18 09/25/18 09/26/18 05:59 05:59 05:59 Intake Total 3078.3 3089 500 Output Total 700 1250 Balance 2378.3 1839 500 Oral vancomycin 500 mg four times daily # 2 (total oral vancomycin # 5 with prior dose of 125 four times daily) IV metronidazole 500 mg q.8 hours # 4 - Physical Exam General Appearance: alert, no apparent distress, non-toxic EENT: No scleral icterus, No thrush Respiratory: lungs clear, No respiratory distress Cardiac/Chest: tachycardia Abdomen: non-tender, distended (Mild) ICD10 Worksheet Patient Problems: Problems Problem Status Onset Abdominal pain Acute Diarrhea Acute COPD exacerbation Acute Pneumonia Acute Renal insufficiency Acute Sepsis Acute chronic disease mgmt/transitional care Acute
[2018-09-26] MEDS ORDERED: PROTOCOL POTASSIUM 1 DOSE MISC PRN (02:27)
[2018-09-26 04:18] LABS: PLATELET COUNT 383 10^3/uL (150-400)
[2018-09-26] MEDS: LEVOTHYROXINE 50 MCG TAB PO SCH (05:26)
[2018-09-26] MEDS: VANCOMYCIN 125 MG/2.5 ML UDL PO SCH ×4 (05:27→20:07)
[2018-09-26] MEDS: IPRATROPIUM/ALBUTEROL 3 ML DEYVIAL IH PRN (06:04)
[2018-09-26] MEDS: LEVALBUTEROL 0.63 MG/3 ML DEYVIAL IH SCH ×4 (06:10→21:01)
[2018-09-26] MEDS: CYANO/VITAMIN B12 1000 MCG TAB PO SCH (08:34)
[2018-09-26] MEDS: ASCORBIC ACID 500 MG TAB PO SCH (08:34)
[2018-09-26] MEDS: PANTOPRAZOLE SODIUM 40 MG TAB PO SCH (08:34)
[2018-09-26] MEDS: ENOXAPARIN 40 MG/0.4 ML SYR SC SCH (08:34)
[2018-09-26] MEDS: FLUTICASONE/SALMETER 250/50MCG DISKUS IH SCH ×2 (10:18→21:01)
--- NOTE | 2018-09-26 10:23 | PCMIDPN ---
Assessment/Plan: 1. Fulminant/severe C difficile colitis: As outlined previously by Dr. Campos, patient falls under fulminant category in the setting of previous hypotension. She does not have an ileus or evidence of toxic megacolon. She was transferred from the ICU yesterday, and is no longer on pressors, with no fever, evidence of toxic megacolon, and her white blood cell count is falling. That being said, the patient tells me that she feels no better, and continues to have multiple episodes of diarrhea. She does not have concomitant abdominal pain. Reviewed IDSA guidelines from 2017, as well as up to date. In the setting of fulminant C difficile colitis, up-to-date states, "if no significant improvement on high-dose oral vancomycin after 3-5 days, adding Fidoxamicin to oral vancomycin and intravenous metronidazole is reasonable." IDSA guidelines do not comment on this. Therefore, will add oral fidaxomicin to oral vancomycin 500 mg four times daily and intravenous metronidazole for now and see what happens after 3-5 days. If no improvement, agree that she will need fecal transplantation. Also of note, patient is drinking several shakes per day that contain a fair amount of lactose which may be exacerbating flatulence, etc. Will ask nutrition to review this, and provide shakes without lactose. Over 25 min spent with this patient today. Subjective: Seems down today. Frustrated. Tells me she continues to have multiple episodes of diarrhea, and has already gone 3 times today. Also has a fair amount of gas. No nausea or vomiting. No significant abdominal discomfort or cramping. I was able to see her stool in the commode, which is green, and clearly unformed. Patient's son and [id number] are present in the room, and had multiple questions for me today about her prognosis moving forward. Patient states she is only drinking shakes as recommended by our clothes presser. However, does feel hungry for some mashed potatoes and meat, if her son and [id number] bring these from the outside. Not able to get up and walk around except for to go to the commode, as she is worried she will have an accident. Objective: Vancomycin 500 mg p.o. Four times daily day 3 (vancomycin orally day 6 as patient received 125 mg dose previously) Metronidazole 500 mg IV q.8 hours day 5 No fevers Vital Signs Temp Pulse Resp BP Pulse Ox 36.7 C 118 H 16 120/70 100 09/26/18 08:00 09/26/18 08:00 09/26/18 08:00 09/26/18 08:00 09/26/18 08:00 Laboratory Results 09/26/18 04:10 09/26/18 04:10 09/25/18 09/26/18 09/27/18 05:59 05:59 05:59 Intake Total 3089 1978 Output Total 1250 550 Balance 1839 1428 - Physical Exam General Appearance: cachetic, other (Appears dejected, flat affect) EENT: pharynx normal, poor dentition, No thrush Respiratory: lungs clear Cardiac/Chest: tachycardia, other (Right IJ in place) Abdomen: non-tender, soft, distended, other (Hyperactive bowel sounds, but they are not high-pitched or tinkering) Skin: No rash ICD10 Worksheet Patient Problems: Problems Problem Status Onset Abdominal pain Acute Diarrhea Acute COPD exacerbation Acute Pneumonia Acute Renal insufficiency Acute Sepsis Acute chronic disease mgmt/transitional care Acute
[2018-09-26] MEDS ORDERED: POTASSIUM CL 10 MEQ TAB PO ONE (10:27)
[2018-09-26] MEDS ORDERED: MAGNESIUM SULF 1 GM/DEXTROSE 100 ML IV ONE (10:28)
[2018-09-26] MEDS ORDERED: CALCIUM GLUCONATE 50 ML IV ONE (10:29)
[2018-09-26] MEDS: FIDAXOMICIN 200 MG TAB PO SCH ×2 (10:35→20:07)
[2018-09-26] MEDS ORDERED: CALCIUM GLUCONATE 1 GM in D5W 50 ML IV ONE (11:00)
--- NOTE | 2018-09-26 14:34 | CPEKG ---
Test Reason : OPEN Blood Pressure : / mmHG Vent. Rate : 120 BPM Atrial Rate : 120 BPM P-R Int : 145 ms QRS Dur : 072 ms QT Int : 298 ms P-R-T Axes : 081 063 041 degrees QTc Int : 421 ms Sinus tachycardia Multiple ventricular premature complexes Left atrial enlargement Low voltage, extremity and precordial leads Anteroseptal infarct, old Confirmed by Ravi Quach ([id number]) on 09/26/2018 2:34:27 PM Referred By: Confirmed By:Ravi Quach
--- NOTE | 2018-09-26 14:58 | ASMTCMCOM ---
CM Note CM Note Notes: Pt is visiting son from [place], she was admitted for cdiff. Pt continues to have diarrhea, MD will change abx treatment and watch her for a few days for improvement. If no improvement may need fecal transplant. DC Plan: TBD Date Signed: 09/26/2018 02:58 PM Electronically Signed By:Taty Fernández RN
--- NOTE | 2018-09-26 15:01 | HOSPPROG ---
Hospitalist Progress Note Assessment/Plan: 77 yo F with recent dx of PNA/empyema/strep bacteremia with prolonged abx use presenting with sepsis/diarrhea and positive C diff # c diff colitis: 2/2 recent prolonged abx use - still with frequent watery stools, but wbc's trending down, afebrile, less pain/cramping -cont high dose vanco plus IV flagyl, add fidoxamicin per ID -consider transfer for fecal transplant if not improving with addition of 3rd agent -avoid lactose # septic shock: 2/2 above, now off pressors, BP stable, but remains tachycardic # xochitl: pre-renal in setting of shock, Cr now normalized # tachycardia: sinus. this was present during previous hospitalization, may be partly related to COPD plus acute infection -cont telemetry monitoring # recent empyema/pna/strep pneumo: completed a month long course of abx # anemia: suspect anemia of chronic disease, no e/o active bleeding, stable -monitor # hyperglycemia: presumably stress response, monitoring # dvt pplx: lovenox # dispo: cont inpt, med/surg Subjective: Pt continues to c/o watery diarrhea and gas. No pain. No fevers. She is frustrated diarrhea has not resolved. Taking po fairly well, lots of ensure shakes and water. Objective: Vital Signs Temp Pulse Resp BP Pulse Ox 36.6 C 127 H 24 H 120/70 96 09/26/18 11:31 09/26/18 11:31 09/26/18 11:31 09/26/18 11:31 09/26/18 11:31 Microbiology 09/21/18 12:00 Blood Culture - Final Blood Laboratory Results 09/26/18 04:10 09/26/18 04:10 09/25/18 09/26/18 09/27/18 05:59 05:59 05:59 Intake Total 3089 1978 Output Total 1250 550 1 Balance 1839 1428 -1 PT 17.6 SEC (12.0-15.0) H 09/21/18 11:20 INR 1.43 (0.83-1.16) H 09/21/18 11:20 - Physical Exam Constitutional: no apparent distress Eyes: PERRL Ears, Nose, Mouth, Throat: moist mucous membranes Cardiovascular: regular rate and rhythym Respiratory: no respiratory distress, clear to auscultation Gastrointestinal: normoactive bowel sounds, soft, non-tender abdomen Skin: warm Musculoskeletal: full muscle strength Neurologic: AAOx3 Psychiatric: interacting appropriately ICD10 Worksheet Patient Problems: Problems Problem Status Onset Abdominal pain Acute Diarrhea Acute COPD exacerbation Acute Pneumonia Acute Renal insufficiency Acute Sepsis Acute chronic disease mgmt/transitional care Acute
[2018-09-27] MEDS: VANCOMYCIN 125 MG/2.5 ML UDL PO SCH ×4 (04:47→21:06)
[2018-09-27] MEDS: LEVOTHYROXINE 50 MCG TAB PO SCH (04:47)
[2018-09-27] MEDS: LEVALBUTEROL 0.63 MG/3 ML DEYVIAL IH SCH ×4 (05:54→20:58)
[2018-09-27] MEDS: PANTOPRAZOLE SODIUM 40 MG TAB PO SCH (09:02)
[2018-09-27] MEDS: CYANO/VITAMIN B12 1000 MCG TAB PO SCH (09:02)
[2018-09-27] MEDS: ASCORBIC ACID 500 MG TAB PO SCH (09:02)
[2018-09-27] MEDS: ENOXAPARIN 40 MG/0.4 ML SYR SC SCH (09:02)
[2018-09-27] MEDS: FIDAXOMICIN 200 MG TAB PO SCH ×2 (09:05→21:06)
[2018-09-27] MEDS: FLUTICASONE/SALMETER 250/50MCG DISKUS IH SCH ×2 (09:06→20:59)
[2018-09-27] MEDS ORDERED: POTASSIUM CL 10 MEQ TAB PO ONE ×2 (09:23→21:25)
--- NOTE | 2018-09-27 10:39 | PCMIDPN ---
Assessment/Plan: 1. Fulminant/severe C difficile colitis: Improved today!! Please see my note yesterday for rationale behind addition of Fidoxymicin to oral vancomycin and IV metronidazole. Continue all 3 medications for now. If she continues to improve, will peel away intravenous metronidazole. Diet is starting to improve. Flatulence improved as well with lactose-free diet. 2. Miscellaneous: Placed order to discontinue central line after 2 peripheral IVs have been placed. 09/27/18 10:37 Subjective: Better today! I opened the commode and saw more FORMED-appearing stool!! This is significant improvement compared with what was in the commode yesterday. She is in better spirits and acknowledges that she is improved. She is also not eating anymore lactose containing shakes. 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 Objective: Fidoxymicin 200 mg p. O. Twice daily day 2 Metronidazole 500 mg IV q.8 hours day 6 Vancomycin 500 mg p.o. Q. 6 hr day 4 (vancomycin day 7 total after 3 days of 125 mg dose) No fevers Vital Signs Temp Pulse Resp BP Pulse Ox 36.6 C 118 H 12 107/61 92 09/27/18 08:00 09/27/18 08:00 09/27/18 08:00 09/27/18 08:00 09/27/18 08:00 Microbiology 09/21/18 12:00 Blood Culture - Final Blood Laboratory Results 09/26/18 04:10 09/27/18 04:50 09/26/18 09/27/18 09/28/18 05:59 05:59 05:59 Intake Total 1978 550 Output Total 550 201 Balance 1428 349 - Physical Exam General Appearance: alert, no apparent distress, other (More talkative today, seems less down) EENT: pharynx normal Respiratory: lungs clear Neck: other (Left IJ in place) Abdomen: soft, No distended ICD10 Worksheet Patient Problems: Problems Problem Status Onset Abdominal pain Acute Diarrhea Acute COPD exacerbation Acute Pneumonia Acute Renal insufficiency Acute Sepsis Acute chronic disease mgmt/transitional care Acute
--- NOTE | 2018-09-27 13:33 | HOSPPROG ---
Hospitalist Progress Note Assessment/Plan: 77 yo F with recent hospitalization for PNA/empyema/strep bacteremia with prolonged abx use presented with sepsis/diarrhea and positive C diff # c diff colitis: 2/2 recent prolonged abx use - wbc's trending down, finally clinically improving after addition of fidoxamicin -cont high dose po vanco plus IV flagyl and fidoxamicin per ID -avoid lactose # septic shock: 2/2 above, now off pressors, BP stable, but remains tachycardic # xochitl: pre-renal in setting of shock, Cr now normalized # tachycardia: sinus. this was present during previous hospitalization, CTA then neg for PE, may be partly related to COPD plus acute infection -cont telemetry monitoring -resume IVF's for 1L, seemed better when on IVF's # recent empyema/pna/strep pneumo: completed a month long course of abx # anemia: suspect anemia of chronic disease, no e/o active bleeding, stable -monitor # dvt pplx: lovenox # dispo: cont inpt, med/surg Subjective: Pt finally reporting improvement since starting fidoxamicin yesterday. Less frequent stools. No pain. No N/v. No fevers. Fair oral intake , taking fluids and shakes (now lactose free). Objective: Vital Signs Temp Pulse Resp BP Pulse Ox 36.4 C 129 H 12 92/58 L 98 09/27/18 11:45 09/27/18 11:45 09/27/18 11:45 09/27/18 11:45 09/27/18 11:45 Microbiology 09/21/18 12:00 Blood Culture - Final Blood Laboratory Results 09/26/18 04:10 09/27/18 04:50 09/26/18 09/27/18 09/28/18 05:59 05:59 05:59 Intake Total 1978 550 Output Total 550 201 Balance 1428 349 PT 17.6 SEC (12.0-15.0) H 09/21/18 11:20 INR 1.43 (0.83-1.16) H 09/21/18 11:20 - Physical Exam Constitutional: no apparent distress Eyes: PERRL Ears, Nose, Mouth, Throat: moist mucous membranes Cardiovascular: tachycardia Respiratory: no respiratory distress, clear to auscultation Gastrointestinal: normoactive bowel sounds, soft, non-tender abdomen Skin: warm Musculoskeletal: full muscle strength Neurologic: AAOx3 Psychiatric: interacting appropriately ICD10 Worksheet Patient Problems: Problems Problem Status Onset Abdominal pain Acute Diarrhea Acute COPD exacerbation Acute Pneumonia Acute Renal insufficiency Acute Sepsis Acute chronic disease mgmt/transitional care Acute
[2018-09-27] MEDS ORDERED: NS 1,000 ML IV SCH (16:00)
[2018-09-28] MEDS: LEVOTHYROXINE 50 MCG TAB PO SCH (06:02)
[2018-09-28] MEDS: VANCOMYCIN 125 MG/2.5 ML UDL PO SCH ×4 (06:02→20:08)
[2018-09-28] MEDS: LEVALBUTEROL 0.63 MG/3 ML DEYVIAL IH SCH ×2 (06:29→10:45)
[2018-09-28] MEDS ORDERED: MAGNESIUM SULF 1 GM/DEXTROSE 100 ML IV ONE (06:57)
--- NOTE | 2018-09-28 08:54 | HOSPPROG ---
Hospitalist Progress Note Assessment/Plan: 77 yo F with recent hospitalization for PNA/empyema/strep bacteremia with prolonged abx use presented with sepsis/diarrhea and positive C diff. Reviewed her care w Dr Shannon who cared for Candi yesterday. First encounter, chart reviewed. # c diff colitis: 2/2 recent prolonged abx use - had been improving after addition of fidaxomicin -cont high dose po vanco plus IV Flagyl and fidaxomicin per ID -avoid lactose # septic shock: 2/2 above, now off pressors, BP stable, but remains tachycardic # xochitl: pre-renal in setting of shock, Cr now normalized # tachycardia: sinus. this was present during previous hospitalization, CTA then neg for PE, may be partly related to COPD plus acute infection -cont telemetry monitoring -resume IVF's for 1L, seemed better when on IVF's # recent empyema/pna/strep pneumo: completed a month long course of abx # anemia: suspect anemia of chronic disease, no e/o active bleeding, stable -monitor #depression -she lost her approximately a year ago -will ask Taty Carbajal to see # dvt pplx: lovenox # dispo:pending #plan: Taty Carbajal, PT and OT, encourage her to get oob Subjective: Candi is frustrated about being ill and not getting better, having ongoing stool and says they are a bit more formed. Objective: Vital Signs Temp Pulse Resp BP Pulse Ox 36.4 C 114 H 26 H 113/74 93 09/28/18 08:00 09/28/18 08:00 09/28/18 08:00 09/28/18 08:00 09/28/18 08:00 Laboratory Results 09/26/18 04:10 09/28/18 04:53 09/27/18 09/28/18 09/29/18 05:59 05:59 05:59 Intake Total 550 600 Output Total 201 1 Balance 349 599 PT 17.6 SEC (12.0-15.0) H 09/21/18 11:20 INR 1.43 (0.83-1.16) H 09/21/18 11:20 - Physical Exam Constitutional: chronically ill appearing Eyes: PERRL Ears, Nose, Mouth, Throat: hearing normal Cardiovascular: regular rate and rhythym Respiratory: no respiratory distress Gastrointestinal: normoactive bowel sounds, soft, non-tender abdomen Skin: warm (pale) Musculoskeletal: generalized weakness Neurologic: AAOx3 Psychiatric: depressed ICD10 Worksheet Patient Problems: Problems Problem Status Onset Abdominal pain Acute Diarrhea Acute COPD exacerbation Acute Pneumonia Acute Renal insufficiency Acute Sepsis Acute chronic disease mgmt/transitional care Acute
[2018-09-28] MEDS: ASCORBIC ACID 500 MG TAB PO SCH (10:01)
[2018-09-28] MEDS: FIDAXOMICIN 200 MG TAB PO SCH ×2 (10:01→20:08)
[2018-09-28] MEDS: PANTOPRAZOLE SODIUM 40 MG TAB PO SCH (10:02)
[2018-09-28] MEDS: CYANO/VITAMIN B12 1000 MCG TAB PO SCH (10:02)
[2018-09-28] MEDS: ENOXAPARIN 40 MG/0.4 ML SYR SC SCH (10:02)
[2018-09-28] MEDS: FLUTICASONE/SALMETER 250/50MCG DISKUS IH SCH ×2 (10:40→20:59)
--- NOTE | 2018-09-28 12:48 | PCMIDPN ---
Assessment/Plan: 1. Fulminant/severe C difficile colitis: It appears that we have taken a step back today, although nurse reports that stool is definitely thickening up, as I observed yesterday in her commode. Hopefully, stool frequency will start to decrease over the next 48 hr. If not, will need to reconsider transfer to [facility] for fecal transplantation. Please see my note 2 days ago for rationale behind addition of Fidoxymicin to oral vancomycin and IV metronidazole. Continue all 3 medications for now. If she continues to improve, will peel away intravenous metronidazole. Continue lactose-free diet. Repeat CBC and CMP in the morning. 2. 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 Her in October after complications related to a quadruple bypass. That, coupled with this prolonged illness has likely contributed to situational depression. Suspect she could benefit from psychiatric evaluation during this admission for further assistance /evaluation although I know this is a tall order. Over 30 min spent with this patient today. 09/28/18 12:52 Subjective: Patient states that she has gone perhaps 4-6 times today, but most of the time she has gas, along with a small amount of stool that is thickening up. Nurse Johanna reports that she saw 2 or 3 stools in the commode that are definitely thickening. However, by report, the aide emptied a liquid stool from the commode. Patient is frustrated, with a very flat affect today, more so compared with yesterday. Seems dejected. Frustrated that"whatever I put in my mouth comes right out. There is no reservoir."Family members are trying to bring her food from the outside that she enjoys. Proceeded to have a long conversation with patient about what brought her to [place]. Objective: Vancomycin 500 mg p.o. Q.6 hours day 5 (vancomycin day 8 after 3 days of 125 mg four times daily) Metronidazole 500 mg IV q.8 hours day 7 Fidox 200 mg p.o. Twice daily day 3 No fevers Vital Signs Temp Pulse Resp BP Pulse Ox 36.5 C 114 H 16 110/67 97 09/28/18 12:00 09/28/18 12:00 09/28/18 12:00 09/28/18 12:00 09/28/18 12:00 Laboratory Results 09/26/18 04:10 09/28/18 04:53 09/27/18 09/28/18 09/29/18 05:59 05:59 05:59 Intake Total 550 600 Output Total 201 1 Balance 349 599 - Physical Exam General Appearance: cachetic (Very flat affect.), other EENT: poor dentition, No scleral icterus, No thrush Respiratory: lungs clear Cardiac/Chest: tachycardia, No systolic murmur Extremities: other (2+ pitting edema lower extremities) Abdomen: soft, distended, other (Hyperactive bowel sounds) Skin: No rash ICD10 Worksheet Patient Problems: Problems Problem Status Onset Abdominal pain Acute Diarrhea Acute COPD exacerbation Acute Pneumonia Acute Renal insufficiency Acute Sepsis Acute chronic disease mgmt/transitional care Acute
--- NOTE | 2018-09-28 13:26 | ASMTCMCOM ---
CM Note CM Note Notes: Reviewed chart. Pt continues to have frequent diarrhea. Per MD notes, if no improvement in next 48 hrs pt may require transfer to [facility] for fecal transplantation. MD notes also report pt may be struggling with some situational depression secondary to this hospitalization and pt's recent loss of her (last October following complications of coronary bypass surgery). CM left a voice message for Taty Carbajal to possibly see pt on Sunday09/30/18 for further evaluation and recommendations. Discharge plan remains unclear at this time. CM will continue to follow. Discharge Plan: To be determined Date Signed: 09/28/2018 01:25 PM Electronically Signed By:Agustina Ortega RN
[2018-09-28] MEDS ORDERED: POTASSIUM CL 10 MEQ TAB PO ONE (20:25)
[2018-09-28] MEDS: LEVALBUTEROL 0.63 MG/3 ML DEYVIAL IH PRN (21:09)
[2018-09-29 05:38] LABS: PLATELET COUNT 536 10^3/uL (150-400)
[2018-09-29] MEDS: LEVOTHYROXINE 50 MCG TAB PO SCH (06:14)
[2018-09-29] MEDS: VANCOMYCIN 125 MG/2.5 ML UDL PO SCH ×4 (06:14→21:20)
--- NOTE | 2018-09-29 08:35 | HOSPPROG ---
Hospitalist Progress Note Assessment/Plan: 77 yo F with recent hospitalization for PNA/empyema/strep bacteremia with prolonged abx use presented with sepsis/diarrhea and positive C diff. # c diff colitis: 2/2 recent prolonged abx use - had been improving after addition of fidaxomicin -cont high dose po vanco plus IV Flagyl and fidaxomicin per ID -avoid lactose -stop PPI for now to see if this is contributing -she is taking [place] honey, she has done research on this and has been used to treat c diff -if no improvement tomorrow, will transfer to [facility] for a fecal transplant # septic shock: 2/2 above, now off pressors, BP stable, but remains tachycardic # xochitl: pre-renal in setting of shock, Cr now normalized # tachycardia: sinus. this was present during previous hospitalization, CTA then neg for PE, may be partly related to COPD plus acute infection -cont telemetry monitoring -will get an echo -she has done better w fluids, will give her saline now -she is exhausted from the tachycardia, trial of low dose beta nesha -with significant lower ext edema, will get an echo # recent empyema/pna/strep pneumo: completed a month long course of abx # anemia: suspect anemia of chronic disease, no e/o active bleeding, stable -monitor #depression -she lost her approximately a year ago -will ask Taty Carbajal to see # dvt pplx: lovenox # dispo:pending #plan: reviewed her care w Dr Campos; if she isn't better tomorrow; his recommendation is to tx for a fecal transplant Subjective: Candi said she is exhausted, had to get up 3 times last night for a bowel movement. Objective: Vital Signs Temp Pulse Resp BP Pulse Ox 36.3 C 123 H 20 113/71 94 09/29/18 07:29 09/29/18 07:29 09/29/18 07:29 09/29/18 07:29 09/29/18 07:29 Laboratory Results 09/29/18 05:27 09/29/18 05:27 09/28/18 09/29/18 09/30/18 05:59 05:59 05:59 Intake Total 600 1040 Output Total 1 252 Balance 599 788 PT 17.6 SEC (12.0-15.0) H 09/21/18 11:20 INR 1.43 (0.83-1.16) H 09/21/18 11:20 - Physical Exam Constitutional: chronically ill appearing, other (thin) Eyes: PERRL Ears, Nose, Mouth, Throat: hearing normal Cardiovascular: regular rate and rhythym, tachycardia Respiratory: no respiratory distress Gastrointestinal: normoactive bowel sounds Skin: warm, No normal color (pale) Musculoskeletal: generalized weakness Neurologic: AAOx3 Psychiatric: interacting appropriately ICD10 Worksheet Patient Problems: Problems Problem Status Onset Abdominal pain Acute Diarrhea Acute COPD exacerbation Acute Pneumonia Acute Renal insufficiency Acute Sepsis Acute chronic disease mgmt/transitional care Acute
[2018-09-29] MEDS: LEVALBUTEROL 0.63 MG/3 ML DEYVIAL IH PRN (09:06)
[2018-09-29] MEDS: FLUTICASONE/SALMETER 250/50MCG DISKUS IH SCH ×2 (09:07→21:44)
[2018-09-29] MEDS: ENOXAPARIN 40 MG/0.4 ML SYR SC SCH (09:39)
[2018-09-29] MEDS: CYANO/VITAMIN B12 1000 MCG TAB PO SCH (09:40)
[2018-09-29] MEDS: FIDAXOMICIN 200 MG TAB PO SCH ×2 (09:40→21:20)
[2018-09-29] MEDS: ASCORBIC ACID 500 MG TAB PO SCH (09:40)
[2018-09-29] MEDS ORDERED: MAGNESIUM SULF 1 GM/DEXTROSE 100 ML IV ONE (11:09)
[2018-09-29] MEDS ORDERED: NS 500 ML IV SCH (11:15)
--- NOTE | 2018-09-29 11:28 | PCMIDPN ---
Assessment/Plan: Assessment/Plan: * Severe/fulminant C difficile colitis: Overall improved but still with persistent frequent diarrhea. Will continue combination therapy with high-dose oral vancomycin, fidaxomicin, and IV metronidazole. If does not show decrease in diarrhea by tomorrow, think she should undergo transfer for fecal transplantation given persistent symptoms despite 10 days of antibiotic therapy. This was discussed with patient today. * Recent pneumococcal sepsis and empyema status post 4 weeks of antibiotic therapy: No signs or symptoms of persistent empyema and recent repeat CT of chest showed marked improvement versus prior. Treatment included ceftriaxone and moxifloxacin. 09/29/18 11:25 Subjective: Patient feels slightly improved but continues to have frequent diarrhea. Some episodes only with passage of gas. Continues to have abdominal bloating but no abdominal pain. Appetite remains decreased. Patient notes that all food tends to go "right through her". Objective: Vital Signs Temp Pulse Resp BP Pulse Ox 36.3 C 123 H 20 113/71 94 09/29/18 07:29 09/29/18 07:29 09/29/18 07:29 09/29/18 07:29 09/29/18 07:29 Laboratory Results 09/29/18 05:27 09/29/18 05:27 09/28/18 09/29/18 09/30/18 05:59 05:59 05:59 Intake Total 600 1040 Output Total 1 252 100 Balance 599 788 -100 Oral vancomycin 500 mg p.o. Q 6 hr # 6, oral vancomycin in total # 9 (initial dose 125 mg four times daily) IV 500 mg Q8 metronidazole # 8 Fidaxomicin # 4 - Physical Exam General Appearance: alert, no apparent distress, non-toxic EENT: No scleral icterus, No thrush Respiratory: lungs clear, No respiratory distress Cardiac/Chest: tachycardia Extremities: pedal edema Abdomen: non-tender, distended ICD10 Worksheet Patient Problems: Problems Problem Status Onset Abdominal pain Acute Diarrhea Acute COPD exacerbation Acute Pneumonia Acute Renal insufficiency Acute Sepsis Acute chronic disease mgmt/transitional care Acute
[2018-09-29] MEDS ORDERED: METOPROLOL TARTRATE 25 MG TAB PO ONE (11:58)
[2018-09-29] MEDS ORDERED: ALBUMIN 5% 250 ML IV ONE (13:08)
--- NOTE | 2018-09-29 13:59 | ASMTCMCOM ---
CM Note CM Note Notes: Case Management Chart Review for Discharge Support: CM discussed with Chrissy Richardson NP, she has also placed a referral to Taty Carbajal. Patient is having a difficult time, her around this time last year. ID recommendation is transfer to [facility] for a fecal transplant if current treatment of high-dose oral vancomycin, fidaxomicin, and IV metronidazole does not show decrease in diarrhea by tomorrow. CM to follow. D/C Plan: TBD Date Signed: 09/29/2018 01:58 PM Electronically Signed By:Sandra Saldana
--- NOTE | 2018-09-29 15:42 | ECHO ---
[email or web address] [address] [address] Main: [phone] Fax: Transthoracic Echocardiogram Name: SHELBY KRISHNAN MR#: [id number] Study Date: 09/29/2018 Study Time: 01:47 PM Date of : 1940 Age: 77 year(s) Height: 170.2 cm (67 in.) Weight: 58.97 kg (130 lb.) BSA: 1.68 m2 Gender: Female Examination: Echo Indication: persistent tachycardia, leg swelling Image Quality: Technically Difficult Contrast: Requested by: Chrissy Richardson BP: 125 mmHg/59 mmHg Heart Rate: Rhythm: Indication: persistent tachycardia, leg swelling Procedure Staff School Bus Aide: Nhung Astorga [facility] Reading Physician: Ravi Quach MD Requesting Provider: Conclusions: 1)Sinus tachycardia. 2)Normal LV size and systolic function with a LVEF of 68% and normal wall motions. 3)Mild TR with estimated normal PA pressures. 4)Small to moderate pericardial effusion 1.5cm in anterior pericardium with some fibrinous changes consistent with chronic nature. Partial abnormal collapse of right atrium during diastole but no abnormal collapse of RV or respiratory variation. note: would probably repeat echo in 1-2 days to make sure pericardial effusion not getting larger and progression to tamponade physiology. Measurements: Chambers Valvular Assessment AV/MV Valvular Assessment TV/PV Normal Normal Normal Name Value Range Name Value Range Name Value Range Ao Christine (MM): 2.3 cm (2.2 cm-3.7 AV Vmax: 1.36 m/s (1 m/s-1.7 TR Vmax: 2.71 mm/s ( - ) cm) m/s) TR PGmax: 29 mmHg ( - ) IVSd (2D): 0.9 cm (0.6 cm-1.1 AV maxP mmHg ( - ) syst. PAP: 34 mmHg ( - ) cm) LVOT Vmax: 1.05 m/s (0.7 m/s-1.1 PV Vmax: 0.99 m/s (0.6 m/s-0.9 LVDd (2D): 3.4 cm (3.9 cm-5.3 m/s) m/s) cm) AMANDA (Vmax): 2.2 cm2 ( - ) PV PGmax: 4 mmHg ( - ) LVDs (2D): 2.2 cm (2.1 cm-4 MV meanP mmHg ( - ) cm) LVPWd (2D): 0.8 cm ( - ) LVOTd 1.9 cm 1.9 cm mm LVEF (2D): 68 (>=54 %) Continued Measurements: Chambers Valvular Assessment AV/MV Valvular Assessment TV/PV Patient: SHELBY KRISHNAN Study Date: 09/29/2018 Page 1 of 2 01:47 PM Name Value Name Value Name Value LADs: 2.3 cm MV VTI: 13.80 cm CVP (est.): 5 mmHg LADs Lon.4 cm LA Area: 18.5 cm2 Additional Vessels Name Value Ao Ascendin.7 cm Findings: Left Ventricle: Normal size left ventricle. No LV hypertrophy. Global hypercontractility of the left ventricle. EF is 68 %. No regional wall motion abnormality. Unable to assess diastolic dysfunction. Right Ventricle: Normal size right ventricle. Normal RV function. Left Atrium: Grossly normal LA size. Right Atrium: Grossly normal RA size. Mitral Valve: There is mild thickening of the mitral valve leaflets. Mild-moderate mitral annular calcification. There is no significant mitral valve regurgitation. No mitral stenosis is present. Aortic Valve: The aortic valve is tri-leaflet. Minimal aortic cusp calcification is noted. There is no significant aortic valve regurgitation. No aortic valve stenosis is present. Tricuspid Valve: The tricuspid valve appears normal. Mild tricuspid regurgitation is present. Right ventricular systolic pressure measures 34mmHg. The pulmonary artery pressure is mildly increased. Pulmonic Valve: Pulmonary valve not well visualized. Aorta: Normal size aortic root measuring 2.3 cm. Normal size ascending aorta measuring 2.7 cm. IVC: Normal size and course of the IVC. Pericardium: There is a pleural effusion. Small to moderate sized pericardial effusion. Partial abnormal RA collapse. No RV diastolic collapse. No significant respiratory variation of the MV and TV inflow patterns. IVC is normal size with inspiratory collapse. Exam Comments: Technically difficult due to heart rates around 111-115bpm. (No Signature Object) Patient: SHELBY KRISHNAN Study Date: 09/29/2018 Page 2 of 2 01:47 PM [id number]
--- NOTE | 2018-09-29 17:40 | SOAPPROG ---
SOAP Progress Note Assessment/Plan: Assessment: Cardiology consult performed and dictated. 77 y/o woman no previous cardiac problems with history of COPD and previous lung cancer with pneumonia and empyema in Aug 2018 and now severe, C. Difficile colitis. She had a CT chest 09/11/18 that showed a small pericardial effusion. She has been back in hospital since 09/21/18 with diarrhea and tachycardia. An echo today shows LVEF 68%, mild TR with estimated normal PA pressures and 1.5cm small to moderate pericardial effusion most prominently in anterior pericardial space with partial collapse of right atrium during diastole but no abnormal RV collapse or respiratory variation consistent with cardiac tamponade. She is chronically short of breath at 20-30ft and very tired and weak. Denies CP or syncope. PLAN: 1)IVF another 1.5 liters tonight to keep intravascularly filled and avoid hypovolemia 2)no pericardiocentesis or percardial drain needed currently. 3)repeat limited echo tomorrow AM to reassess pericardial effusion size and if any progression to tamponade. 4)if needed transfer by ambulance to [facility] for fecal transplant, could tolerate from cardiac standpoint. Thanks. Cardiology service will follow closely with you. 09/29/18 17:34 Objective: Vital Signs Temp Pulse Resp BP Pulse Ox 36.7 C 107 H 20 109/66 97 09/29/18 16:28 09/29/18 16:28 09/29/18 16:28 09/29/18 16:28 09/29/18 16:28 Laboratory Results 09/29/18 05:27 09/29/18 05:27 09/28/18 09/29/18 09/30/18 05:59 05:59 05:59 Intake Total 600 1040 Output Total 1 252 100 Balance 599 788 -100 PT 17.6 SEC (12.0-15.0) H 09/21/18 11:20 INR 1.43 (0.83-1.16) H 09/21/18 11:20 ICD10 Worksheet Patient Problems: Problems Problem Status Onset Abdominal pain Acute Diarrhea Acute COPD exacerbation Acute Pneumonia Acute Renal insufficiency Acute Sepsis Acute chronic disease mgmt/transitional care Acute
[2018-09-29] MEDS ORDERED: NS 1,000 ML IV ONE (18:30)
[2018-09-29] MEDS: METOPROLOL TARTRATE 25 MG TAB PO SCH (21:19)
--- NOTE | 2018-09-30 06:04 | GCON ---
CARDIOLOGY CONSULT DATE OF CONSULTATION: 09/29/2018 REASON FOR CONSULTATION: Evaluate woman with persistent tachycardia and dyspnea on exertion and echo showing small to moderate pericardial effusion with partial right atrial collapse during diastolic p hase. HISTORY OF PRESENT ILLNESS: The patient is a 77-year-old woman with no previous cardiac problems. S he did have a longstanding smoking history, stopping 7 months ago with COPD and lung cancer. In Dece mber of 2017, she had a severe pneumonia with empyema. Of note, a CT of the chest done on 09/11/2018 , demonstrated a small pericardial effusion. She developed severe C diff colitis and was rehospitali zed on 09/21/2018. She has been tachycardic for the hospitalization. An echo done today demonstrate s an LVEF of 68% with normal LV and RV function with mild tricuspid insufficiency and estimated winter l pulmonary artery pressures. She has a small to moderate pericardial effusion, more prominent in th e anterior pericardial space with some fibrinous material consistent with a chronic nature and has pa rtial collapse of the right atrium during diastole. There is no collapse of the right ventricle or r espiratory variation to suggest tamponade. She is chronically short of breath at about 20-30 feet of walking. She is tired and frustrated and weak. She is still having lots of diarrhea. She denies c hest pain or syncope. She is a little stronger than a week ago when she was admitted. PAST MEDICAL HISTORY: COPD, lung cancer, recent pneumonia with empyema and C diff colitis, and hypot hyroidism. PAST SURGICAL HISTORY: None. CURRENT MEDICATIONS: Lovenox 40 mg subcu daily, Flagyl IV q.8 hours, metoprolol 12.5 mg twice daily, vancomycin 500 mg p.o. 4 times a day. The rest of medications are noncardiac. ALLERGIES: No known drug allergies. SOCIAL HISTORY: The patient quit tobacco 7 months ago. She does not drink excessive alcohol. FAMILY HISTORY: Unremarkable for premature coronary artery disease. REVIEW OF SYSTEMS: The patient reports no fevers or chills. She reports no TIA or CVA symptoms. Th e rest of 10-point review of systems is negative. PHYSICAL EXAMINATION: VITAL SIGNS: Afebrile, pulse 107 and regular, blood pressure 109/66, respirat ions 20. GENERAL: An older thin-appearing woman in no acute distress without chest pain or using ac cessory respiratory muscles. EYES: Pupils equal, reactive to light. ENT: Oral mucosa with no cyan osis. NECK: Jugular venous pressure to 6-7 cm. Carotid pulses 2+ bilaterally with no obvious bruit s. No thyromegaly noted. LUNGS: Clear to auscultation bilaterally with no obvious wheezes or rales . HEART: Tachycardic, regular rate with 1/6 nonradiating systolic murmur and no S3. ABDOMEN: Soft , nontender. No guarding or rebound or ascites. EXTREMITIES: 2+ peripheral pulses including femora l and pedal pulses. 2+ edema bilaterally to just below the level of the knees. MUSCULOSKELETAL: No scoliosis. NEURO: Normal affect and mood. NECK: No nuchal rigidity. SKIN: No bleeding or cyano sis. LABORATORY DATA: White count 11.1, hematocrit 31, platelets 536,000. MCV 93. Sodium 139, potassium 4.0, chloride 115, bicarb 21, BUN 4, creatinine 0.6, glucose 83, albumin 1.7. TSH 7.5. IMPRESSION: A 77-year-old woman with longstanding tobacco use, stopped 7 months ago with chronic obs tructive pulmonary disease and previous lung cancer and recent pneumonia with empyema, now with sever e Clostridium difficile colitis. She has a small to moderate pericardial effusion, which appears to be semi chronic. I do not think she is having tamponade, but could progress. RECOMMENDATIONS: 1. Would give more IV fluid to make sure she is intravascularly filled and avoid dehydration. Would give normal saline, another 1.5 L overnight. 2. Would continue on metoprolol as ordered. 3. Will repeat a limited echo in the morning to reassess size of pericardial effusion and make sure there is no evidence of tamponade. 4. For now, I do not think she needs an urgent pericardiocentesis or pericardial drain tonight. 5. If she needed to be [facility] the [facility] in the next several days, she is stable fro m a heart standpoint to tolerate the ambulance ride to the [facility]. Thank you for allowing me to participate in the care of Mrs. Carter. Cardiology service will follow along with you closely. /[id number]/MODL
[2018-09-30] MEDS: LEVOTHYROXINE 50 MCG TAB PO SCH (06:22)
[2018-09-30] MEDS: VANCOMYCIN 125 MG/2.5 ML UDL PO SCH ×3 (06:23→16:36)
[2018-09-30] MEDS ORDERED: POTASSIUM CL 10 MEQ TAB PO ONE (07:37)
[2018-09-30] MEDS: FLUTICASONE/SALMETER 250/50MCG DISKUS IH SCH (08:18)
[2018-09-30] MEDS: METOPROLOL TARTRATE 25 MG TAB PO SCH (08:28)
[2018-09-30] MEDS: ASCORBIC ACID 500 MG TAB PO SCH (08:29)
[2018-09-30] MEDS: CYANO/VITAMIN B12 1000 MCG TAB PO SCH (08:29)
[2018-09-30] MEDS: FIDAXOMICIN 200 MG TAB PO SCH (08:30)
--- NOTE | 2018-09-30 11:02 | HOSPPROG ---
Hospitalist Progress Note Assessment/Plan: 77 yo F with recent hospitalization for PNA/empyema/strep bacteremia with prolonged abx use presented with sepsis/diarrhea and positive C diff. # c diff colitis: 2/2 recent prolonged abx use - had been improving after addition of fidaxomicin -cont high dose po vanco plus IV Flagyl and fidaxomicin per ID -avoid lactose -stop PPI for now to see if this is contributing -she is taking Manuka honey, she has done research on this and has been used to treat c diff - transfer to [facility] for a fecal transplant (had >3 loose stools this morning) # septic shock: 2/2 above, now off pressors, BP stable, but remains tachycardic # xochitl: pre-renal in setting of shock, Cr now normalized # tachycardia: sinus. this was present during previous hospitalization, CTA then neg for PE, may be partly related to COPD plus acute infection -cont telemetry monitoring -will get an echo -she has done better w fluids, will give her saline now -she is exhausted from the tachycardia, trial of low dose beta nesha -with significant lower ext edema, will get an echo #small to moderate pericardial effusion -r atrium partially collapses during diastole -second echo pending, but prelim results are essentially unchanged # recent empyema/pna/strep pneumo: completed a month long course of abx # anemia: suspect anemia of chronic disease, no e/o active bleeding, stable -monitor #depression -she lost her approximately a year ago -she didn't want to discuss this w Taty Carbajal (appreciate Taty trying to see her) # dvt pplx: lovenox #plan: asked cardiology to review second echo, will tx to today if this is unchanged. Subjective: Candi is worn out, wants to try the fecal transplant. Objective: Vital Signs Temp Pulse Resp BP Pulse Ox 36.3 C 115 H 18 106/62 96 09/30/18 07:50 09/30/18 08:28 09/30/18 08:20 09/30/18 08:28 09/30/18 08:20 Laboratory Results 09/29/18 05:27 09/30/18 05:10 09/29/18 09/30/18 10/01/18 05:59 05:59 05:59 Intake Total 1040 1600 Output Total 252 100 Balance 788 1500 PT 17.6 SEC (12.0-15.0) H 09/21/18 11:20 INR 1.43 (0.83-1.16) H 09/21/18 11:20 - Physical Exam Constitutional: chronically ill appearing Eyes: PERRL Ears, Nose, Mouth, Throat: hearing normal Cardiovascular: tachycardia Respiratory: no respiratory distress Skin: warm, No normal color (pale) Musculoskeletal: full muscle strength Neurologic: AAOx3 Psychiatric: interacting appropriately ICD10 Worksheet Patient Problems: Problems Problem Status Onset Abdominal pain Acute Diarrhea Acute COPD exacerbation Acute Pneumonia Acute Renal insufficiency Acute Sepsis Acute chronic disease mgmt/transitional care Acute
[2018-09-30] MEDS: ENOXAPARIN 40 MG/0.4 ML SYR SC SCH (12:00)
[2018-09-30] MEDS ORDERED: MAGNESIUM SULF 1 GM/DEXTROSE 100 ML IV ONE (15:51)
[2018-09-30 16:21] VITALS: BP 110/66
--- NOTE | 2018-09-30 17:04 | ASMTCMCOM ---
CM Note YOVANNY Note Notes: Pt is possibly being d/c'd to [facility] for a fecal transplant. provided Madhavi w/ phone number to call report. [facility] has not assigned a bed to pt at this point. It is currently 5:02Pm. [facility] reports that the bed that they have available needs to be cleaned before it can be assigned. Madhavi will call to arrange transport w/ Mitchell at [facility]. Madhavi has the phone number to call regarding coordination. YOVANNY completed PCS form. The community health agent printed out pts chart and obtain imaging on a CD. This will go w/ pt during transport. EMTALA form completed and will also go during transport. Date Signed: 09/30/2018 05:03 PM Electronically Signed By:PIYUSH Garcia
--- NOTE | 2018-09-30 17:55 | GDS ---
DISCHARGE DIAGNOSES: 1. Severe Clostridium difficile colitis. 2. Septic shock due to this. 3. Acute kidney injury. 4. Sinus tachycardia. 5. Small to moderate pericardial effusion. 6. Recent empyema, pneumonia, strep pneumonia, completed a month course of antibiotics. 7. Anemia. 8. Situational depression. CONSULTATION: 1. Dr. Soy Cantu. 2. Dr. Nacho Stout. 3. Dr. Quach. Briefly, this is a 77-year-old woman who was noted to have a severe pneumonia with empyema in August 2018. She had a CT of the chest done on September 11, which showed a small pericardial effusion. During that hospital stay, it was noted that she was tachycardiac. She had a CTA done that was negative for a PE. She was discharged home. She developed severe C diff colitis while recovering at home. She was re admitted on September 21, 2018 for this, and treated with multiple medications including Flagyl 500 mg IV q.8 hours, vancomycin oral liquid 500 mg four times daily and fidaxomicin 200 mg p.o. twice daily. She never quite improved during her stay. The diarrhea persisted. She was discharged to [facility] this evening for a fecal transplant. Throughout her stay and her previous stay, she has been tachycardic. Subsequently, she had an echocardiogram performed. This showed a small to moderate pericardial effusion and during diastole, she had partial collapse of her right atrium. Subsequently, Cardiology evaluated her. They recommended to keep her intravascularly filled and avoid dehydration. She had a repeat limited echo this morning to reassess the size of the pericardial effusion and there was no evidence of tamponade. She will be discharged later this evening to [facility] for further care. HOSPITAL COURSE BY PROBLEM: 1. Severe C diff colitis secondary to prolonged IV antibiotic use. She has not improved with triple therapy. She will transfer to [facility] for fecal transplant. I saw her early this morning. She had already had 3 multiple loose stools. 2. Septic shock. She had required pressors. This has since resolved. Her blood pressure is stable. 3. Acute kidney injury. This was in the setting of shock. Her creatinine is stable. 4. Sinus tachycardia. This was present during her previous hospitalization. A CTA that was negative for PE. On the monitor she has been in sinus tach. The echocardiogram showed a small to moderate pericardial effusion, possibly causing her to be tachycardic. She was started on low-dose beta nesha with improvement. 5. Small to moderate pericardial effusion. She needs to get a followup echo after she gets her C diff colitis addressed. 6. Recent empyema, pneumonia, strep pneumonia, stable and resolved. 7. Anemia. This is likely due to chronic disease. 8. Depression. This is situational. Approximately a year ago she lost her . She has been quite ill herself. She did not want any further care in regards to this. DISCHARGE CONDITION: Stable. Blood pressure is 110/66, heart rate of 107, O2 saturation on 1 L 99%. Temperature 36.9 Celsius. MEDICATIONS AT DISCHARGE: Please see the EMR. Medication will be adjusted by [facility]. HOSPITAL DISCHARGE INSTRUCTIONS: 1. To follow up with Dr. Quach in the outpatient setting. Stay on the metoprolol. 2. TSH is elevated, to get further follow up with her PCP. Greater than 30 minutes, caring for the patient and arranging care at [facility]. /[id number]/MODL MTDD
== END 2018-09-30 19:06 | disposition short-term general hospital (02) | DRG 871 ==
LOC: F2N 16:22 → F3E 09-25 12:57
PROVIDERS: ADMIT Internal Medicine; ATTEND Internal Medicine
PROC: 05HN33Z Insertion of Infusion Device into Left Internal Jugular Vein, Percutaneous Approach (ICD-10-PCS; principal; 2018-09-22)
DX: A41.9 Sepsis, unspecified organism (principal); R65.21 Severe sepsis with septic shock; A04.72 Enterocolitis due to Clostridium difficile, not specified as recurrent; N17.9 Acute kidney failure, unspecified; I31.3 Pericardial effusion (noninflammatory); R00.0 Tachycardia, unspecified; D64.9 Anemia, unspecified; F43.21 Adjustment disorder with depressed mood; J44.9 Chronic obstructive pulmonary disease, unspecified; E03.9 Hypothyroidism, unspecified; Z87.891 Personal history of nicotine dependence; Z85.118 Personal history of other malignant neoplasm of bronchus and lung; Z80.9 Family history of malignant neoplasm, unspecified
CPT/HCPCS: 84484-ER; 96374; 97110-GP; 97116-GP; 97161-GP; J0610; J0696; J1650; J3010; J3475; J3480; P9041; Q9967